=== PATIENT | female | born 1960 | race Caucasian/White ===

== ENCOUNTER 2017-01-08 17:12 | Inpatient (IN) | payer MEDICARE, OTHER ==
[~2017-01-08] VITALS: Ht 163.8 cm; Wt 51.0 kg
--- OUTSIDE RECORDS SUMMARY | 2017-01-08 17:22 | XMS REPORT | Continuity of Care Document ---
Author Author [facility] Address Unknown Phone Unavailable Care Team Providers Care Corn Breeder Name Role Phone David Camargo MD Primary Care Physician [phone] Insurance Providers Payer Name Policy Number Subscriber Name Relationship Medicare A And B [id number] Ana Draper 18 Self / Same As Patient Other1 [id number] Ana Draper 18 Self / Same As Patient Advance Directives Directive Response Recorded Date/Time Advanced Directives No 04/17/16 6:52pm Chief Complaint and Reason for Visit Chief Complaint Altered Neurologic Status Reason for Visit Seizure [id number] Problems Active Problems Medical Problem Onset Date Status Altered mental status 07/19/2014 Acute Closed fracture of neck of femur ~04/26/2014 Acute Fall on same level from slipping, tripping or stumbling ~04/26/2014 Acute Hip pain ~04/26/2014 Acute Hyponatremia 07/21/2014 Acute SIADH (syndrome of inappropriate ADH production) 07/21/2014 Acute Seizure ~03/30/2014 Acute Seizure ~04/17/2016 Acute Seizure disorder 11/04/2013 Chronic Status epilepticus 07/19/2014 Acute 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 Medications Current Home Medications Medication Dose Units Route Directions Days/Qty Instructions Start Date Oxcarbazepine 300 Mg 300 Mg ORAL Three Times A Day 02/06/13 Lamotrigine 100 Mg 100 Mg ORAL Daily @ 1800 Hrs 02/06/13 Topiramate 100 Mg 125 Mg ORAL Twice A Day 02/06/13 Demeclocycline Hcl 150 Mg 300 Mg ORAL Twice A Day 02/06/13 Lamotrigine 100 Mg 50 Mg ORAL Daily @ 0800 03/30/14 Magnesium Hydroxide 400 Mg/5 Ml 30 Ml ORAL Daily as needed for Constipation 03/30/14 Aspirin 81 Mg 81 Mg ORAL Daily 07/19/14 Sennosides 8.6 Mg 2 Tab ORAL Daily 07/19/14 Levetiracetam 500 Mg 1,500 Mg ORAL Twice A Day 60 07/21/14 Oxycodone Hcl 5 Mg 5 Mg ORAL Every 6 Hours as needed for Pain Lorazepam 2 Mg/1 Ml 2 Mg INTAMUSCULAR Three Times A Day as needed for Seizure Activity 04/10/15 Ibuprofen 200 Mg 400 Mg ORAL Daily 04/17/16 Past Home Medications Medication Directions Ordered Status Levetiracetam 500 Mg Tab, 1250 Mg Oral Twice A Day 02/06/13 Discontinued Lorazepam 2 Mg/1 Ml Disp.syrin, 2 Mg Intamuscular As Needed for Seizures Discontinued Metoclopramide Hcl 5 Mg Tablet, 5 Mg Oral Three Times Daily With Meals Discontinued Ibuprofen 200 Mg Tablet, 600 Mg Oral Every 8HRS as needed for Pain 03/30/14 Discontinued Oxycodone Hcl 5 Mg Tablet, 5 Mg Oral As Needed 07/19/14 Discontinued Risperidone 0.25 Mg Tablet, 0.25 Mg Oral Daily 04/10/15 Discontinued Social History Social History Problem Response Recorded Date/Time Onset Date Status Exposure to occupational hazards No 04/10/2015 7:39pm Query Response Start Date Stop Date Smoking Status Former smoker Hospital Discharge Instructions No hospital discharge instructions. Plan of Care Discharge Date 04/17/16 9:38pm Disposition 01 HOME OR SELF-CARE Condition at Discharge Stable Instructions/Education Provided Epilepsy (ED) Prescriptions See Medication Section Referrals David Camargo MD - Additional Instructions/Education Continue current medications. Follow up with Dr. Camargo. Some of your test results may not be complete prior to your leaving the Emergency Department. The Emergency Department is not authorized to give test results over the phone. Please contact the doctor's office listed in this packet of information for your final results. Follow up with your primary care physician or return to the Emergency Department for worsening or worrisome symptoms. * Emergency Department phone number: [phone], x [phone]* MEDICAL RECORD If you need copies of your X-rays, call [phone]. If you need copies of your medical record, including lab results, a signed authorization for release of records will be required. A telephone call for release of Health Information is not allowed. BILLING Billing can sometimes be confusing and frustrating. To help avoid confusion in the future, please take a moment to acquaint yourself with the billing parties for services. SERVICE BILLING [employer] Emergency Room Services [facility] Physician Services [facility] X-rays [facility] Patients will receive bills for services from the appropriate provider. If you have any questions about your [facility] bill, our staff will be happy to assist you. Please call [phone], and ask for the billing department. THANK YOU for choosing [facility] as your emergency care provider! Care Plan and Goals ~~Discharge Care Plan~~ Problem: Seizure caused from a fever. Seizure disorder. Goal: No further seizures. Instructions: Protect patients head if having an active seizure. Do not attempt to restrain patient. Unable to drive for six months from last date of seizure. Take medication(s) as directed. Follow up with primary care physician or neurologist as directed. Functional Status No functional status results. Allergies, Adverse Reactions, Alerts Allergen Type Severity Reaction Status Last Updated Codeine Allergy Unknown Active 04/17/16 Acetaminophen Allergy Unknown Active 04/17/16 Immunizations Name Given Type Status Date Influenza Vaccine Received if Current 08/19/15 Historical Historical Vital Signs Acute Vital Signs Vital Response Date/Time Temperature (Fahrenheit) 98.9 04/17/2016 8:54pm Pulse 73 bpm 04/17/2016 8:54pm Respirations 20 04/17/2016 8:54pm Height 5 ft 3 in Weight 118 lb Body Mass Index 20.0 kg/m^2 Results Laboratory Results Test Name Result Units Flags Reference Collection Date/Time Result Date/ Time Comments White Blood Count 11.54 10^3uL H 4.0-11.0 04/17/2016 6:pm 04/17/2016 7 :12pm Red Blood Count 5.08 10^6uL H 4.00-5.00 04/17/2016 6:04/17/2016 7: 12pm Hemoglobin 14.3 g/dL 12.0-15.5 04/17/2016 6:04/17/2016 7:12pm Hematocrit 43.20 % 35.00-45.00 04/17/2016 6:04/17/2016 7:12pm Mean Corpuscular Volume 85 FL 80-100 04/17/2016 6:04/17/2016 7: 12pm Mean Corpuscular Hemoglobin 28.1 PG 26.0-34.0 04/17/2016 6:2015 7:12pm Mean Corpuscular Hemoglobin Concent 33.1 g/dL 31.0-37.0 04/17/2016 6: 04/17/2016 7:12pm Red Cell Distribution Width 16.1 % H 11.8-15.6 04/17/2016 6:2015 7:12pm Platelet Count 319 10^3uL 150-450 04/17/2016 6:04/17/2016 7:12pm Mean Platelet Volume 10.4 FL H 6.0-9.5 04/17/2016 6:04/17/2016 7: 12pm Neutrophils (%) (Auto) 58 % 51-67 04/17/2016 6:04/17/2016 7:12pm Lymphocytes (%) (Auto) 29 % 20-46 04/17/2016 6:04/17/2016 7:12pm Monocytes (%) (Auto) 11 % 3-11 04/17/2016 6:04/17/2016 7:12pm Eosinophils (%) (Auto) 1 % 0-4 04/17/2016 6:04/17/2016 7:12pm Basophils (%) (Auto) 0 % 0-2 04/17/2016 6:04/17/2016 7:12pm Neutrophils # (Auto) 6.7 X10^3 04/17/2016 6:04/17/2016 7:12pm Lymphocytes # (Auto) 3.4 X10^3 04/17/2016 6:04/17/2016 7:12pm Monocytes # (Auto) 1.2 X10^3 04/17/2016 6:04/17/2016 7:12pm Eosinophils # (Auto) 0.1 10^3uL 04/17/2016 6:04/17/2016 7:12pm Basophils # (Auto) 0.1 10^3uL 04/17/2016 6:04/17/2016 7:12pm Prothrombin Time 11.0 SEC L 11.6-14.2 04/17/2016 6:3604/17/2016 7: 17pm Prothromb Time International Ratio 0.8 0.8-1.4 04/17/2016 6: 7:17pm Activated Partial Thromboplast Time 27.8 SEC 24.9-35.9 04/17/2016 6: 04/17/2016 7:17pm Sodium Level 127 mmol/L L 135-150 04/17/2016 7:04/17/2016 7:35pm Potassium Level 3.5 mmol/L # 3.5-5.1 04/17/2016 7:04/17/2016 7:35pm Chloride Level 96 mmol/L L 98-108 04/17/2016 7:04/17/2016 7:35pm Carbon Dioxide Level 11 mmol/L L 22-29 04/17/2016 7:04/17/2016 7: 35pm Anion Gap 23.2 MEQ/L H 3-04/17/2016 7:04/17/2016 7:35pm Blood Urea Nitrogen 12 mg/dL 7-04/17/2016 7:04/17/2016 7:35pm Creatinine 1.03 mg/dL 0.6-1.2 04/17/2016 7:04/17/2016 7:35pm BUN/Creatinine Ratio 12 10-20 04/17/2016 7:04/17/2016 7:35pm Estimat Glomerular Filtration Rate 67.1 04/17/2016 7:2015 7:35pm Estimated GFR (Non- 55.4 04/17/2016 7:2015 7:35pm Glucose Level 148 mg/dL # H 70-110 04/17/2016 7:04/17/2016 7:35pm Calculated Osmolality 248 mosm/L L 280-300 04/17/2016 7:04/17/2016 7:35pm Calcium Level 8.8 mg/dL 8.8-10.8 04/17/2016 7:04/17/2016 7:35pm Calcium/Ionized Calcium Ratio 3.9 mg/dL 3.8-4.6 04/17/2016 7:04/17 7:35pm Total Bilirubin 0.3 mg/dL 0.1-1.0 04/17/2016 7:04/17/2016 7:35pm Alkaline Phosphatase 123 U/L 38-126 04/17/2016 7:04/17/2016 7: 35pm Aspartate Amino Transf (AST/SGOT) 32 U/L 15-37 04/17/2016 7:2015 7:35pm Alanine Aminotransferase (ALT/SGPT) 27 U/L L 30-65 04/17/2016 7: 7:35pm Total Creatine Kinase 50 U/L 30-135 04/17/2016 7:04/17/2016 7: 35pm Troponin I < 0.012 ng/mL 0.010-0.080 04/17/2016 7:04/17/2016 7: 45pm Total Protein 7.0 g/dL 6.4-8.5 04/17/2016 7:04/17/2016 7:35pm Albumin 3.9 g/dL 3.4-5.0 04/17/2016 7:04/17/2016 7:35pm Albumin/Globulin Ratio 1.258 1.1-1.8 04/17/2016 7:04/17/2016 7: 35pm Procedures No known history of procedures. Encounters Encounter Location Arrival/Admit Date Discharge/Depart Date Attending Provider Departed Emergency Room [facility] 04/17/16 6:57pm 04/17/16 9:38pm ODETTE ROJAS DO Registered Clinic [facility] 04/17/16 6:42pm SONIYA CABA MD Recent Diagnosis
--- OUTSIDE RECORDS SUMMARY | 2017-01-08 17:22 | XMS REPORT | Referral Summary ---
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 stroke Discharge Diagnosis: Epilepsy Discharge Diagnosis: ACUTE, BUT ILL-DEFINED, CEREBROVASCULAR DISEASE Discharge Disposition: Home or Self Care Attending Physician: Aleks Sherwood MD Admitting Physician: Aleks Sherwood MD Vital Signs Most recent to 1 oldest [Reference Range]: Peripheral Pulse 87 bpm Rate [60-100 bpm] (02/15/15 11:22 AM) Blood Pressure 122/69 mmHg [90-140/60-90 mmHg] (02/15/15 11:22 AM) Problem List No data available for this section Allergies, Adverse Reactions, Alerts Substance Reaction Severity Status Tylenol with Codeine #2 Active Medications Keppra 500 mg oral tablet 3 tabs, Oral, BID, 0 Refill(s) Start Date: 02/15/15 Status: Ordered LaMICtal 100 mg oral tablet 0.5 tabs, Oral, Bedtime (once a day), 0 Refill(s) Start Date: 02/15/15 Status: Ordered RisperDAL 0.25 mg oral tablet 1 tabs, Oral, BID, # 60 tabs, 0 Refill(s) Start Date: 02/15/15 Status: Ordered Topamax 100 mg oral tablet tabs, Oral, BID, 125 mg BID, 0 Refill(s) Special Instructions: 125 mg BID Start Date: 02/15/15 Status: Ordered Topamax 25 mg oral tablet tabs, Oral, BID, 125mg BID, 0 Refill(s) Special Instructions: 125mg BID Start Date: 02/15/15 Status: Ordered Trileptal 300 mg oral tablet 1 tabs, Oral, TID, 0 Refill(s) Start Date: 02/15/15 Status: Ordered Results No data available for this section Immunizations Vaccine Date Refusal Reason tetanus-diphth toxoids (Td) adult/adol 09/11/03 Procedures No data available for this section Social History Social History Type Response Smoking Status Never smoker Assessment and Plan No data available for this section
--- OUTSIDE RECORDS SUMMARY | 2017-01-08 17:22 | XMS REPORT | Continuity of Care Document ---
Author Author [facility] Organization [facility] Address Unknown Phone Unavailable Care Team Providers Care Application Security Consultant Name Role Phone David Camargo MD Primary Care Physician [phone] Insurance Providers Payer Name Policy Number Subscriber Name Relationship Medicare A And B [id number] Ana Draper 18 Self / Same As Patient Medicare Other [id number] Ana Draper 18 Self / Same As Patient Problems Medical Problems Problem Onset Date Status Seizure disorder 11/04/2013 Active Seizure ~03/30/2014 Active Fall on same level from slipping, tripping or stumbling ~04/26/2014 Active Hip pain ~04/26/2014 Active Closed fracture of neck of femur ~04/26/2014 Active Status epilepticus 07/19/2014 Active Altered mental status 07/19/2014 Active Hyponatremia 07/21/2014 Active SIADH (syndrome of inappropriate ADH production) 07/21/2014 Active Medications Medication Dose Route Sig Days/Qty Instructions Order Date Discontinued Date Status Levetiracetam 1,250 Mg ORAL TWICE A DAY 02/06/13 07/21/14 Discontinued Oxcarbazepine 300 Mg ORAL THREE TIMES A DAY 02/06/13 Active Lamotrigine 100 Mg ORAL Daily @ 1800 hrs 02/06/13 Active Topiramate 125 Mg ORAL TWICE A DAY 02/06/13 Active Demeclocycline HCl 300 Mg ORAL TWICE A DAY 02/06/13 Active Lamotrigine 50 Mg ORAL Daily @ 0800 03/30/14 Active Lorazepam 2 Mg INTAMUSCULAR NEEDED For Seizures 03/30/14 Discontinued Metoclopramide Hcl 5 Mg ORAL THREE TIMES DAILY WITH MEALS 03/30/14 07/19/14 Discontinued Ibuprofen 600 Mg ORAL EVERY 8HRS PRN PAIN 03/30/14 Active Magnesium Hydroxide 30 Ml ORAL DAILY PRN CONSTIPATION 03/30/14 Active Aspirin 81 Mg ORAL DAILY 07/19/14 Active Sennosides 2 Tab ORAL DAILY 07/19/14 Active Oxycodone Hcl 5 Mg ORAL NEEDED 07/19/14 04/10/15 Discontinued Levetiracetam 1,500 Mg ORAL TWICE A DAY 60 Qty 07/21/14 Active Risperidone 0.25 Mg ORAL DAILY 04/10/15 Active Oxycodone Hcl 5 Mg ORAL EVERY 6 HOURS PRN PAIN 04/10/15 Active Lorazepam 2 Mg INTAMUSCULAR THREE TIMES A DAY PRN SEIZURE ACTIVITY Active Social History No social history. Hospital Discharge Instructions No hospital discharge instructions. Plan of Care Discharge Date 04/10/15 7:16pm Disposition 09 ADMITTED INPATIENT Condition at Discharge Stable Prescriptions See Medications Section Follow-up Orders BASIC METABOLIC PANEL* Referrals David Camargo MD Functional Status No functional status results. Allergies, Adverse Reactions, Alerts Allergen Type Severity Reaction Status Last Updated Codeine Allergy Unknown Active 03/31/14 Acetaminophen Allergy Unknown Active 03/31/14 Immunizations No immunization records. Vital Signs Acute Vital Signs Vital Response Date/Time Temperature (Fahrenheit) 97.4 Pulse 80 bpm Height 5 ft 3 in Weight 105 lb Body Mass Index 18.0 kg/m^2 Results Test Source Date Result Interp. Ref. Range Comments Activated Partial Thromboplast Time March 30, 2014 7:49pm 30.3 SEC N 25.0- 39.0 Collected by nurse? N Alanine Aminotransferase (ALT/SGPT) April 10, 2015 4:42pm 26 U/L L 30-65 FIRST SAMPLE HEMOLYSED Albumin April 10, 2015 4:42pm 3.8 g/dL DN 3.4-5.0 FIRST SAMPLE HEMOLYSED Albumin/Globulin Ratio April 10, 2015 4:42pm 1.266 N 1.1-1.8 FIRST SAMPLE HEMOLYSED Alkaline Phosphatase April 10, 2015 4:42pm 169 U/L H 38-126 FIRST SAMPLE HEMOLYSED Amilcar Test March 30, 2014 8:10pm Na Collected by nurse? N Ammonia March 30, 2014 7:49pm 33 umol/L 9-35 Collected by nurse? N Anion Gap April 10, 2015 4:42pm 15.7 MEQ/L H 3-15 FIRST SAMPLE HEMOLYSED Arterial Blood Base Excess March 30, 2014 8:10pm -12.0 L -2.0-3.0 Collected by nurse? N Arterial Blood HCO3 March 30, 2014 8:10pm 15.1 MEQ/L L 22.0-26.0 Collected by nurse? N Arterial Blood Oxygen Saturation March 30, 2014 8:10pm 98 % N 95-98 Collected by nurse? N Arterial Blood Partial Pressure CO2 March 30, 2014 8:10pm 36 mmHg N 35-45 Collected by nurse? N Arterial Blood Partial Pressure O2 March 30, 2014 8:10pm 114 mmHg H 80- 105 Collected by nurse? N Arterial Blood Total CO2 March 30, 2014 8:10pm 16.0 CRUZ/L L 23.0-27.0 Collected by nurse? N Arterial Blood pH March 30, 2014 8:10pm 7.23 L 7.35-7.45 All ABG Results called to Jaswinder read back the results. Called by Efra Salguero at 2017 Aspartate Amino Transf (AST/SGOT) April 10, 2015 4:42pm 26 U/L N 15-37 FIRST SAMPLE HEMOLYSED B-Type Natriuretic Peptide March 30, 2014 7:49pm 25 PG/ML N 0-100 Collected by nurse? N BUN/Creatinine Ratio April 10, 2015 4:42pm 10 N 10-20 FIRST SAMPLE HEMOLYSED Band Neutrophils % February 06, 2013 10:40pm 0 % N 0-6 Basophils # (Auto) April 10, 2015 3:50pm 0.0 10^3uL Basophils % February 06, 2013 10:40pm 0 % N 0-1 Basophils (%) (Auto) April 10, 2015 3:50pm 0 % N 0-2 Blood Gas Liter Flow March 30, 2014 8:10pm 3.0 LPM Collected by nurse ? N Blood Gas Puncture Site March 30, 2014 8:10pm Left brachial Collected by nurse? N Blood Morphology Comment February 06, 2013 10:40pm Normal NORMAL Blood Urea Nitrogen April 10, 2015 4:42pm 11 mg/dL N 7-18 FIRST SAMPLE HEMOLYSED C-Reactive Protein March 30, 2014 7:49pm < 0.50 MG/DL 0.0-0.9 Collected by nurse? N Calcium Level April 10, 2015 4:42pm 8.9 mg/dL N 8.8-10.8 FIRST SAMPLE HEMOLYSED Calcium/Ionized Calcium Ratio April 10, 2015 4:42pm 4.0 mg/dL N 3.8-4.6 FIRST SAMPLE HEMOLYSED Calculated Osmolality April 10, 2015 4:42pm 250 mosm/L L 280-300 FIRST SAMPLE HEMOLYSED Carbon Dioxide Level April 10, 2015 4:42pm 24 mmol/L N 22-29 FIRST SAMPLE HEMOLYSED Chloride Level April 10, 2015 4:42pm 95 mmol/L L 98-108 FIRST SAMPLE HEMOLYSED Creatine Kinase MB March 30, 2014 7:49pm 0.4 NG/ML N 0.0-6.0 Collected by nurse? N Creatinine April 10, 2015 4:42pm 1.05 mg/dL N 0.6-1.2 FIRST SAMPLE HEMOLYSED Differential Total Cells Counted February 06, 2013 10:40pm 100 Eosinophils # (Auto) April 10, 2015 3:50pm 0.0 10^3uL Eosinophils % February 06, 2013 10:40pm 1 % N 0-5 Eosinophils (%) (Auto) April 10, 2015 3:50pm 0 % N 0-4 Estimat Glomerular Filtration Rate April 10, 2015 4:42pm 65.8 FIRST SAMPLE HEMOLYSED Estimated GFR (Non- April 10, 2015 4:42pm 54.4 FIRST SAMPLE HEMOLYSED Glucose Level April 10, 2015 4:42pm 108 mg/dL DN 70-110 FIRST SAMPLE HEMOLYSED Hematocrit April 10, 2015 3:50pm 41.10 % N 35.00-45.00 Hemoglobin April 10, 2015 3:50pm 13.9 g/dL N 12.0-15.5 Lamotrigine (Lamictal) Level July 19, 2014 2:27am 3.3 mcg/mL () Reference Range:2.5 - 15.0 Test Performed by: [address] [address] Collar Folder Operator: Fede [place] III, M.D. Levetiracetam (Keppra) Level July 19, 2014 2:27am 41.4 mcg/mL () Reference Range:12.0 - 46.0 Test Performed by: [address] [address] Collar Folder Operator: Fede [place] III, M.D. Lymphocytes # (Auto) April 10, 2015 3:50pm 1.0 X10^3 Lymphocytes % February 06, 2013 10:40pm 38 % H 16-34 Lymphocytes (%) (Auto) April 10, 2015 3:50pm 16 % L 20-46 Magnesium Level July 20, 2014 5:15am 2.2 MG/DL N 1.6-2.3 Collected by nurse? N Mean Corpuscular Hemoglobin April 10, 2015 3:50pm 31.2 PG N 26.0-34.0 Mean Corpuscular Hemoglobin Concent April 10, 2015 3:50pm 33.8 g/dL N 31.0-37.0 Mean Corpuscular Volume April 10, 2015 3:50pm 92 FL N 80-100 Mean Platelet Volume April 10, 2015 3:50pm 10.1 FL H 6.0-9.5 Monocytes # (Auto) April 10, 2015 3:50pm 0.4 X10^3 Monocytes % February 06, 2013 10:40pm 9 % N 0-10 Monocytes (%) (Auto) April 10, 2015 3:50pm 7 % N 3-11 Neutrophils # (Auto) April 10, 2015 3:50pm 4.6 X10^3 Neutrophils (%) (Auto) April 10, 2015 3:50pm 76 % H 51-67 Oxcarbazepine Level July 19, 2014 2:27am 19 mcg/mL 3 - 35 Test Performed by:[address] [address] Collar Folder Operator: Fede [place] III, M.D. Phosphorus Level July 20, 2014 5:15am 4.7 MG/DL N 2.4-4.9 Collected by nurse? N Platelet Count April 10, 2015 3:50pm 232 10^3uL N 150-450 Potassium Level April 10, 2015 4:42pm 5.0 mmol/L DN 3.5-5.1 FIRST SAMPLE HEMOLYSED Prothromb Time International Ratio March 30, 2014 7:49pm 1.0 N 0.8-1.4 Collected by nurse? N Prothrombin Time March 30, 2014 7:49pm 12.8 SEC N 12.3-14.4 Collected by nurse? N Red Blood Count April 10, 2015 3:50pm 4.46 10^6uL N 4.00-5.00 Red Cell Distribution Width April 10, 2015 3:50pm 12.5 % N 11.8-15.6 Segmented Neutrophils % February 06, 2013 10:40pm 52 % N 50-73 Serum Alcohol March 30, 2014 7:49pm < 10.0 mg/dL L 10-80 Collected by nurse? N Sodium Level April 10, 2015 4:42pm 129 mmol/L L 135-150 FIRST SAMPLE HEMOLYSED Thyroid Stimulating Hormone (TSH) March 30, 2014 7:49pm 4.49 UIU/ML DN 0.46-4.68 Collected by nurse? N Total Bilirubin April 10, 2015 4:42pm 0.3 mg/dL N 0.1-1.0 FIRST SAMPLE HEMOLYSED Total Creatine Kinase April 10, 2015 4:42pm 47 U/L N 30-135 FIRST SAMPLE HEMOLYSED Total Protein April 10, 2015 4:42pm 6.8 g/dL N 6.4-8.5 FIRST SAMPLE HEMOLYSED Troponin I March 30, 2014 7:49pm < 0.012 ng/mL 0.010-0.080 Collected by nurse? N Ur Tricyclic Antidepressants Screen March 30, 2014 8:45pm Negative Negative Collected by nurse? NUrine collection method Clean Catch Urine Amphetamines Screen March 30, 2014 8:45pm Negative Negative Collected by nurse? NUrine collection method Clean Catch Urine Barbiturates Screen March 30, 2014 8:45pm Positive H Negative Collected by nurse? NUrine collection method Clean Catch Urine Benzodiazepines Screen March 30, 2014 8:45pm Negative Negative Collected by nurse? NUrine collection method Clean Catch Urine Bilirubin July 19, 2014 2:18am Negative Negative Urine collection method Catheter Urine Blood July 19, 2014 2:18am Negative Negative Urine collection method Catheter Urine Cannabinoids Screen March 30, 2014 8:45pm Negative Negative Collected by nurse? NUrine collection method Clean Catch Urine Clarity July 19, 2014 2:18am Slightly cloudy Urine collection method Catheter Urine Cocaine Screen March 30, 2014 8:45pm Negative Negative Collected by nurse? NUrine collection method Clean Catch Urine Collection Type July 19, 2014 2:18am Catheter Urine collection method Catheter Urine Color July 19, 2014 2:18am Yellow Urine collection method Catheter Urine Glucose (UA) July 19, 2014 2:18am Negative Negative Urine collection method Catheter Urine Ketones July 19, 2014 2:18am Negative Negative Urine collection method Catheter Urine Leukocyte Esterase July 19, 2014 2:18am Negative Negative Urine collection method Catheter Urine Methadone Screen March 30, 2014 8:45pm Negative Negative Collected by nurse? NUrine collection method Clean Catch Urine Methamphetamines Screen March 30, 2014 8:45pm Negative NEGATIVE Collected by nurse? NUrine collection method Clean Catch Urine Nitrite July 19, 2014 2:18am Negative Negative Urine collection method Catheter Urine Opiates Screen March 30, 2014 8:45pm Negative Negative Collected by nurse? NUrine collection method Clean Catch Urine Oxycodone Screen March 30, 2014 8:45pm Negative NEGATIVE Collected by nurse? NUrine collection method Clean Catch Urine Phencyclidine Screen March 30, 2014 8:45pm Negative Negative Phencyclidine testing by this method can showcross-reactivity with several common medications such as venlafaxine, dextromethorphan, and diphenhydramine. Submission of any positive sample for confirmatory testing is recommended. Urine Propoxyphene Screen March 30, 2014 8:45pm Negative NEGATIVE Results of this screen are qualitative and are presumptiveresults. A more specific method (i.e. GC/MS) must be used if confirmation of results is indicated. Urine Protein July 19, 2014 2:18am Negative Negative Urine collection method Catheter Urine Specific [place] July 19, 2014 2:18am 1.015 1.005-1.030 Urine collection method Catheter Urine Urobilinogen July 19, 2014 2:18am 0.2 mg/dL 0.2-1.0 Urine collection method Catheter Urine pH July 19, 2014 2:18am 6.5 5.0 - 8.0 Urine collection method Catheter White Blood Count April 10, 2015 3:50pm 6.04 10^3uL N 4.0-11.0 Blood Culture Peripheral-:Lab Indicates After Collectio July 19, 2014 3: 04am No Growth in 5 days Procedures No known history of procedures. Encounters Encounter Location Date/Time Departed Emergency Room [facility] 04/10/15 4:02pm Registered Clinic [facility] 04/10/15 2:00pm
--- OUTSIDE RECORDS SUMMARY | 2017-01-08 17:22 | XMS REPORT | Continuity of Care Document ---
Author Author [facility] Address Unknown Phone Unavailable Allergies Active Description Code Type Severity Reaction Onset Reported/Identified Relationship to Patient Clinical Status Yes acetaminophen [id number] Drug Allergy Unknown N/A 09/09/2016 Yes codeine [id number] Drug Allergy Unknown N/A 09/09/2016 Medications Problems Date Dx Coded Attending Type Code Diagnosis Diagnosed By 02/07/2013 Ot 305.1 TOBACCO USE DISORDER 02/07/2013 Ot 345.90 EPILEPSY UNSPEC W/O MENTION INTRACTABLE 02/07/2013 Ot V58.69 OTH MED,LT,CURRENT USE 11/04/2013 TOBY VELAZCO, SAMREEN Johnson Ot 345.80 OTHER FORMS OF EPILEPSY/RECURRENT SEIZUR 04/01/2014 ZENA LEE MD Ot 253.6 NEUROHYPOPHYSIS DIS NEC 04/01/2014 ZENA LEE MD Ot 305.1 TOBACCO USE DISORDER 04/01/2014 ZENA LEE MD Ot 345.90 EPILEPSY UNSPEC W/O MENTION INTRACTABLE 04/01/2014 ZENA LEE MD Ot 564.09 OTHER CONSTIPATION 04/01/2014 ZENA LEE MD Ot 783.22 UNDERWEIGHT 04/01/2014 ZENA LEE MD Ot V12.54 PERSONAL HX OF TIA, CEREBRAL INFARCTION 04/26/2014 ODETTE ROJAS DO Ot 719.45 JOINT PAIN-PELVIS 04/26/2014 ODETTE ROJAS DO Ot 820.21 INTERTROCHANTERIC FX-CL 04/26/2014 ODETTE ROJAS DO Ot E849.0 ACCIDENT IN HOME 04/26/2014 ODETTE ROJAS DO Ot E885.9 FALL FROM SLIPPING, TRIPPING, OR STUMBLI 07/21/2014 MOLLY WELDON MD Ot 253.6 NEUROHYPOPHYSIS DIS NEC 07/21/2014 MOLLY WELDON MD Ot 338.29 OTHER CHRONIC PAIN 07/21/2014 MOLLY WELDON MD Ot 345.90 EPILEPSY UNSPEC W/O MENTION INTRACTABLE 07/21/2014 SHIRAZ VELAZCO, MOLLY Ang Ot 564.00 UNSPEC CONSTIPATION 07/21/2014 SHIRAZ VELAZCO, MOLLY Ashia Ot V12.54 PERSONAL HX OF TIA, CEREBRAL INFARCTION 07/21/2014 SHIRAZ VELAZCO, MOLLY Ang Ot V58.66 LONG-TERM (CURRENT) USE OF ASPIRIN 09/21/2014 David Camargo MD Ot 821.00 09/21/2014 Ot 276.1 09/21/2014 Ot 276.1 09/21/2014 Ot 276.1 09/21/2014 Ot 276.1 09/21/2014 Ot 611.72 09/21/2014 Ot 345.90 09/21/2014 Ot 793.80 09/21/2014 Ot 793.82 09/21/2014 Ot 780.52 09/21/2014 David Camargo MD Ot 276.1 09/21/2014 David Camargo MD Ot 611.71 09/21/2014 David Camargo MD Ot 611.72 09/21/2014 David Camargo MD Ot 793.89 09/21/2014 David Camargo MD Ot 782.3 09/21/2014 LYNSEY TREADWELL DO Ot 780.39 09/21/2014 ODETTE ROJAS DO Ot 719.45 09/21/2014 ODETTE ROJAS DO Ot E849.7 09/21/2014 ODETTE ROJAS DO Ot E885.9 09/21/2014 David Camargo MD Ot 821.00 09/21/2014 PABLO MALDONADO MD Ot 780.39 09/21/2014 David Camargo MD Ot 401.9 02/18/2015 Ot 276.1 02/18/2015 Ot 276.1 02/18/2015 Ot 276.1 02/18/2015 Ot 276.1 02/18/2015 Ot 611.72 02/18/2015 Ot 345.90 02/18/2015 Ot 793.80 02/18/2015 Ot 793.82 02/18/2015 Ot 780.52 02/18/2015 David Camargo MD Ot 276.1 02/18/2015 David Camargo MD Ot 611.71 02/18/2015 Raman VELAZCO, David Johnson Ot 611.72 02/18/2015 Raman VELAZCO, David Johnson Ot 793.89 02/18/2015 Raman VELAZCO, David Johnson Ot 782.3 02/18/2015 LYNSEY TREADWELL DO Ot 780.39 02/18/2015 ODETTE ROJAS DO Ot 719.45 02/18/2015 ODETTE ROJAS DO Ot E849.7 02/18/2015 ODETTE ROJAS DO Ot E885.9 02/18/2015 Raman VELAZCO, David Johnson Ot 821.00 02/18/2015 JOEL VELAZCO, PABLO L Ot 780.39 02/18/2015 Raman VELAZCO, David Johnson Ot 401.9 04/11/2015 SHIRAZ VELAZCO, MOLLY Ang Ot 253.6 NEUROHYPOPHYSIS DIS NEC 04/11/2015 SHIRAZ VELAZCO, MOLLY Ang Ot 305.1 TOBACCO USE DISORDER 04/11/2015 SHIRAZ VELAZCO, MOLLY Ang Ot 344.89 PARALYTIC SYNDROMES NEC 04/11/2015 SHIRAZ VELAZCO, MOLLY Ang Ot 345.90 EPILEPSY UNSPEC W/O MENTION INTRACTABLE 04/11/2015 SHIRAZ VELAZCO, MOLLY Ang Ot V12.54 PERSONAL HX OF TIA, CEREBRAL INFARCTION 04/26/2015 Raman VELAZCO, David Johnson Ot 821.00 04/27/2015 Ot 276.1 04/27/2015 Ot 276.1 04/27/2015 Ot 276.1 04/27/2015 Ot 276.1 04/27/2015 Ot 611.72 04/27/2015 Ot 345.90 04/27/2015 Ot 793.80 04/27/2015 Ot 793.82 04/27/2015 Ot 780.52 04/27/2015 Raman VELAZCO, David Johnson Ot 276.1 04/27/2015 Raman VELAZCO, David Johnson Ot 611.71 04/27/2015 Raman VELAZCO, David Johnson Ot 611.72 04/27/2015 Raman VELAZCO, David Johnson Ot 793.89 04/27/2015 Raman VELAZCO, David Johnson Ot 782.3 04/27/2015 LYNSEY TREADWELL DO Ot 780.39 04/27/2015 ODETTE ROJAS DO Ot 719.45 04/27/2015 CRYSTAL SCHMIDT ODETTE M Ot E849.7 04/27/2015 CRYSTAL SCHMIDT ODETTE Tatiana Ot E885.9 04/27/2015 Raman VELAZCO, David Johnson Ot 821.00 04/27/2015 JOEL VELAZCO, PABLO Smart Ot 780.39 04/27/2015 Raman VELAZCO, David Johnson Ot 401.9 04/27/2015 LINDA VELAZCO, AAMR A Ot V64.3 04/27/2015 ROSALES VELAZCO, SONIYA Ot 780.39 04/29/2015 ROSALES VELAZCO, SONIYA Ot 780.39 05/01/2015 ROSALES VELAZCO, SONIYA Ot 780.39 05/12/2015 Raman VELAZCO, David Johnson Ot V76.12 05/13/2015 Raman VELAZCO, David Johnson Ot V76.12 05/27/2015 ROSALES VELAZCO, SONIYA Ot 780.39 05/31/2015 Raman VELAZCO, David Johnson Ot V76.12 06/01/2015 Raman VELAZCO, David Johnson Ot 793.82 06/18/2015 Raman VELAZCO, David Johnson Ot 793.82 07/14/2015 Raman VELAZCO, David Johnson Ot 610.0 07/14/2015 Raman VELAZCO, David Johnson Ot 611.89 08/25/2015 Raman VELAZCO, David Johnson Ot 345.90 08/25/2015 Raman VELAZCO, David Johnson Ot 782.3 08/25/2015 Raman VELAZCO, David Johnson Ot 783.21 08/25/2015 Raman VELAZCO, David Johnson Ot 784.0 08/25/2015 Raman VELAZCO, David Johnson Ot V58.69 01/24/2016 Raman VELAZCO, David Johnson Ot 345.90 01/24/2016 Raman VELAZCO, David Johnson Ot 782.3 01/24/2016 Raman VELAZCO, David Johnson Ot 783.21 01/24/2016 Raman VELAZCO, David Johnson Ot 784.0 01/24/2016 Raman VELAZCO, David Johnson Ot V58.69 04/17/2016 Ot 276.1 HYPOSMOLALITY 04/17/2016 Ot 276.1 HYPOSMOLALITY 04/17/2016 Ot 276.1 HYPOSMOLALITY 04/17/2016 Ot 276.1 HYPOSMOLALITY 04/17/2016 Ot 611.72 LUMP OR MASS IN BREAST 04/17/2016 Ot 345.90 EPILEPSY UNSPEC W/O MENTION INTRACTABLE 04/17/2016 Ot 793.80 UNSPEC ABNORMAL MAMMOGRAM 04/17/2016 Ot 793.82 INCONCLUSIVE MAMMOGRAM 04/17/2016 Ot 780.52 INSOMNIA, UNSPECIFIED 04/17/2016 David Camargo MD Ot 276.1 HYPOSMOLALITY 04/17/2016 David Camargo MD Ot 611.71 MASTODYNIA 04/17/2016 David Camargo MD Ot 611.72 LUMP OR MASS IN BREAST 04/17/2016 David Camargo MD Ot 793.89 OTH (ABN) FINDINGS ON RADIOLOGICAL EXAMI 04/17/2016 David Camargo MD Ot 782.3 EDEMA 04/17/2016 LYNSEY TREADWELL DO Ot 780.39 OTHER CONVULSIONS 04/17/2016 ODETTE ROJAS DO Ot 719.45 JOINT PAIN-PELVIS 04/17/2016 ODETTE ROJAS DO Ot E849.7 ACCID IN RESIDENT INSTIT 04/17/2016 ODETTE ROJAS DO Ot E885.9 FALL FROM SLIPPING, TRIPPING, OR STUMBLI 04/17/2016 David Camargo MD Ot 821.00 FX FEMUR NOS-CLOSED 04/17/2016 PABLO MALDONADO MD Ot 780.39 OTHER CONVULSIONS 04/17/2016 David Camargo MD Ot 401.9 HYPERTENSION NOS 04/17/2016 LINDA VELAZCO, MR A Ot V64.3 NO PROC FOR REASONS NEC 04/17/2016 SONIYA CABA MD Ot 780.39 OTHER CONVULSIONS 04/17/2016 David Camargo MD Ot V76.12 OTH SCREEN MAMMO-MALIGN NEOPLASM OF SURAJ 04/17/2016 David Camargo MD Ot 793.82 INCONCLUSIVE MAMMOGRAM 04/17/2016 David Camargo MD Ot 610.0 SOLITARY CYST OF BREAST 04/17/2016 David Camargo MD Ot 611.89 OTHER SPECIFIED DISORDERS OF BREAST 04/17/2016 David Camargo MD Ot 345.90 EPILEPSY UNSPEC W/O MENTION INTRACTABLE 04/17/2016 David Camargo MD Ot 782.3 EDEMA 04/17/2016 David Camargo MD Ot 783.21 LOSS OF WEIGHT 04/17/2016 David Camargo MD Ot 784.0 HEADACHE 04/17/2016 David Camargo MD Ot V58.69 OTH MED,LT,CURRENT USE 04/17/2016 ODETTE ROJAS DO, Ot 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) 04/17/2016 ODETTE ROJAS DO Ot R29.818 OTHER SYMPTOMS AND SIGNS INVOLVING THE N 04/19/2016 SONIYA CABA MD, Ot R41.82 ALTERED MENTAL STATUS, UNSPECIFIED 04/19/2016 SONIYA CABA MD, Ot R56.9 UNSPECIFIED CONVULSIONS 04/21/2016 ODETTE ROJAS DO, Ot 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) 04/21/2016 ODETTE ROJAS DO Ot R29.818 OTHER SYMPTOMS AND SIGNS INVOLVING THE N 05/16/2016 SONIYA CABA MD, Ot R41.82 ALTERED MENTAL STATUS, UNSPECIFIED 05/16/2016 SONIYA CABA MD, Ot R56.9 UNSPECIFIED CONVULSIONS 09/10/2016 LAURIE COFFMAN MD Ot E87.1 HYPO-OSMOLALITY AND HYPONATREMIA 09/10/2016 LAURIE COFFMAN MD Ot E87.2 ACIDOSIS 09/10/2016 LAURIE COFFMAN MD Ot E87.6 HYPOKALEMIA 09/10/2016 LAURIE COFFMAN MD Ot F17.210 NICOTINE DEPENDENCE, CIGARETTES, UNCOMPL 09/10/2016 LAURIE COFFMAN MD Ot G40.909 EPILEPSY, UNSP, NOT INTRACTABLE, WITHOUT 09/10/2016 LAURIE COFFMAN MD Ot 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) 09/10/2016 LAURIE COFFMAN MD Ot I69.298 OTHER SEQUELAE OF OTHER NONTRAUMATIC INT 09/13/2016 SONIYA CABA MD, Ot G40.89 OTHER SEIZURES 10/04/2016 SONIYA CABA MD, Ot G40.89 OTHER SEIZURES Procedures Results Test Result Range Complete blood count (CBC) with automated white blood cell (WBC) differential - 09/09/16 17:13 Blood automated leukocyte count 9.71 4.0 -11.0 Erythrocytes 4.59 4.00-5.00 12.0-16.0;g/dL 13.0 12.0-15.5 Hematocrit 39.30 35.00-45.00 Automated erythrocyte mean corpuscular volume 86 80-100 Mean corpuscular hemoglobin (MCH) determination 28.3 26.0-34.0 Automated erythrocyte mean corpuscular hemoglobin concentration measurement ( mass/volume) 33.1 31.0-37.0 Erythrocyte distribution width 15.1 11.8 -15.6 Automated blood platelet count 276 150- 450 Automated blood platelet mean volume measurement 9.8 6.0-9.5 Automated neutrophil percentage 63 51- 67 Lymphocytes/100 leukocytes 25 20-46 Automated monocyte percentage 10 3-11 Eosinophil count auto 1 0-4 Automated basophil percentage 0 0-2 Automated blood neutrophil count 6.1 Blood lymphocytes count (number/volume) 2.4 Automated blood monocyte count 1.0 Blood absolute eosinophil count 0.1 Basophils 0.0 Comprehensive metabolic panel - 09/09/16 17:13 Sodium measurement 122 70-110 Carbon dioxide measurement 12 22-29 Serum or plasma anion gap 26.5 3-15 BLOOD UREA NITROGEN 13 7-18 CREATININE SERUM 0.92 0.6-1.2 Brucella species antibody panel (IgG, IgM) 14 10-20 Estimated glomerular filtration rate (GFR) 76.4 Estimated glomerular filtration rate (GFR) non- 63.2 OSMOLALITY,CALCULATED 251 280-300 CALCIUM 8.6 8.8-10.8 Calculated ionized calcium measurement 3.5 3.8-4.6 BILIRUBIN,TOTAL 0.4 0.1-1.0 Serum or plasma alkaline phosphatase measurement 126 38-126 ASPARTATE AMINO TRANSFERASE 27 15-37 ALANINE AMINOTRANSFERASE 28 30-65 Serum or plasma total protein measurement 8.1 6.4-8.5 Serum or plasma albumin measurement 4.4 3.4-5.0 Serum or plasma albumin/globulin mass ratio 1.189 1.1-1.8 LACTIC ACID - 09/09/16 21:17 LACTIC ACID 0.9 0.7-2.1 Complete blood count (CBC) with automated white blood cell (WBC) differential - 09/10/16 05:50 Blood automated leukocyte count 6.21 4.0 -11.0 Erythrocytes 4.58 4.00-5.00 12.0-16.0;g/dL 12.6 12.0-15.5 Hematocrit 38.30 35.00-45.00 Automated erythrocyte mean corpuscular volume 84 80-100 Mean corpuscular hemoglobin (MCH) determination 27.5 26.0-34.0 Automated erythrocyte mean corpuscular hemoglobin concentration measurement ( mass/volume) 32.9 31.0-37.0 Erythrocyte distribution width 15.0 11.8 -15.6 Automated blood platelet count 258 150- 450 Automated blood platelet mean volume measurement 9.5 6.0-9.5 Automated neutrophil percentage 61 51- 67 Lymphocytes/100 leukocytes 26 20-46 Automated monocyte percentage 12 3-11 Eosinophil count auto 1 0-4 Automated basophil percentage 0 0-2 Automated blood neutrophil count 3.8 Blood lymphocytes count (number/volume) 1.6 Automated blood monocyte count 0.8 Blood absolute eosinophil count 0.1 Basophils 0.0 Comprehensive metabolic panel - 09/10/16 05:50 Sodium measurement 87 70-110 Carbon dioxide measurement 21 22-29 Serum or plasma anion gap 13.1 3-15 BLOOD UREA NITROGEN 9 7-18 CREATININE SERUM 0.87 0.6-1.2 Brucella species antibody panel (IgG, IgM) 10 10-20 Estimated glomerular filtration rate (GFR) 81.5 Estimated glomerular filtration rate (GFR) non- 67.4 OSMOLALITY,CALCULATED 264 280-300 CALCIUM 8.7 8.8-10.8 Calculated ionized calcium measurement 3.8 3.8-4.6 BILIRUBIN,TOTAL 0.4 0.1-1.0 Serum or plasma alkaline phosphatase measurement 110 38-126 ASPARTATE AMINO TRANSFERASE 25 15-37 ALANINE AMINOTRANSFERASE 34 30-65 Serum or plasma total protein measurement 7.2 6.4-8.5 Serum or plasma albumin measurement 3.5 3.4-5.0 Serum or plasma albumin/globulin mass ratio 0.945 1.1-1.8 Phosphorus measurement - 09/10/16 05:50 Phosphorus measurement 4.0 2.4-4.9 Magnesium measurement - 09/10/16 05:50 Magnesium measurement 2.2 1.6-2.3 Serum or plasma cortisol measurement on morning peak specimen (mass/volume) - 09/10/16 05:50 Serum or plasma cortisol measurement on morning peak specimen (mass/volume) 9 3-20 UA CULTURE IF INDICATED* - 01/05/17 13:15 COLLECTION METHOD CLEAN CATCH Color of urine by auto Yellow Urine appearance determination Slightly Cloudy Urine pH measurement by automated test strip 7.0 5.0 - 8.0 Specific gravity of urine by automated test strip 1.015 1.005-1.030 Urine protein measurement by test strip (mass/volume) Negative Negative Urine glucose detection by automated test strip Negative Negative Urine erythrocytes count by automated test strip (number/volume) Trace-lysed Negative Urine ketones detection by automated test strip Negative Negative Urine nitrite detection by test strip Negative Negative Urine total bilirubin detection by automated test strip Negative Negative Urine urobilinogen measurement by automated test strip (mass/volume) 0.2 0.2-1.0 Urine leukocyte esterase detection by dipstick 2+ Negative Microscopic examination of urine - 01/05/17 13:15 Urine volume measurement < Urine erythrocytes detection by automated method 2-5 Automated urine sediment leukocyte count by microscopy (number/high power field ) Bacteria Rare SQUAMOUS EPITHELIAL CELL,UR 0-2 Urine culture - 01/05/17 13:15 Urine culture FRY FOR RESULTS: * - NEW RESULT - RESULT WAS MODIFIED AFTER FINAL STATUS SET Encounters ACCT No. Visit Date/Time Discharge Status Pt. Type Provider Facility Loc./Unit Complaint [id number] 09/09/2016 19:45:00 2015 11:37:00 DIS Inpatient AUGUSTUS VELAZCO, [facility] MED/SURG POST DICTAL PARALYSIS [id number] 04/17/2016 18:57:00 2015 21:38:00 DIS Emergency ROJAS DO [facility] ED [id number] 08/03/2015 14:30:00 2014 23:59:59 CLS Outpatient Raman VELAZCO, [facility] LAB [id number] 05/28/2015 08:58:00 2014 23:59:59 CLS Outpatient Raman VELAZCO, [facility] [id number] 05/21/2015 10:44:00 2014 23:59:59 CLS Outpatient Raman VELAZCO, [facility] [id number] 05/14/2015 10:00:00 2014 23:59:59 CLS Preadmit Raman VELAZCO, [facility] [id number] 05/06/2015 11:24:00 2014 23:59:59 CLS Outpatient Raman VELAZCO, [facility] RAD [id number] 04/10/2015 20:56:00 2014 14:32:00 DIS Inpatient SHIRAZ VELAZCO, [facility] MED/SURG [id number] 04/10/2015 14:00:00 2014 23:59:59 CLS Outpatient ROSALES VELAZCO, [facility] EMS [id number] 02/18/2015 10:09:00 2014 23:59:59 CLS Outpatient LINDA VELAZCO, [facility] [id number] 07/28/2014 05:52:00 2013 23:59:59 CLS Outpatient Raman VELAZCO, [facility] LAB [id number] 07/19/2014 04:45:00 2013 14:30:00 DIS Inpatient SHIRAZ VELAZCO, [facility] MED/SURG [id number] 07/19/2014 01:50:00 2013 23:59:59 CLS Outpatient JOEL VELAZCO, [facility] EMS [id number] 05/22/2014 06:29:00 2013 23:59:59 CLS Outpatient Raman VELAZCO, [facility] LAB [id number] 04/26/2014 19:53:00 2013 23:59:59 CLS Outpatient [facility] EMS [id number] 04/26/2014 19:53:00 2013 21:31:00 DIS Emergency [facility] ED [id number] 03/30/2014 21:30:00 2013 15:00:00 DIS Inpatient JESUS VELAZCO, [facility] MED/SURG [id number] 03/30/2014 19:15:00 2013 23:59:59 [facility] [id number] 12/23/2013 10:59:00 2013 23:59:59 CLS Outpatient Raman VELAZCO, [facility] LAB [id number] 11/04/2013 16:28:00 2012 17:58:00 DIS Emergency TOBY VELAZCO, [facility] ED [id number] 09/10/2013 09:52:00 2012 23:59:59 CLS Outpatient Raman VELAZCO, [facility] RAD [id number] 06/06/2013 11:42:00 2012 23:59:59 CLS Outpatient Raman VELAZCO, [facility] LAB [id number] 01/05/2017 13:16:00 ACT Outpatient Raman VELAZCO, [facility] LAB DROP OFF [facility] [id number] 09/09/2016 17:21:00 ACT Outpatient ROSALES VELAZCO, [facility] EMS TRANSPORT TO THE HOSPITAL [id number] 04/17/2016 18:42:00 ACT Outpatient ROSALES VELAZCO, [facility] EMS [id number] 09/21/2014 13:54:00 Document Registration [id number] 05/02/2013 11:06:00 Document Registration [id number] 04/15/2013 09:50:00 Document Registration [id number] 02/06/2013 22:55:00 Document Registration [id number] 02/06/2013 22:49:00 Document Registration [id number] 01/10/2013 09:52:00 Document Registration [id number] 12/24/2012 09:40:00 Document Registration [id number] 10/16/2012 11:25:00 Document Registration [id number] 07/31/2012 10:00:00 Document Registration [id number] 05/16/2012 09:46:00 Document Registration
--- OUTSIDE RECORDS SUMMARY | 2017-01-08 17:23 | XMS REPORT | Continuity Of Care Document ---
Author Author [facility] Organization [facility] Address [address] [facility] [place] [address] Phone Care Team Providers Care Inside Sales Advisor Name Role Phone DAVIDSON VELAZCO, E PP [phone] KYLAH VELAZCO, L Unavailable SONIYA VELAZCO, Hyacinth Unavailable KARAN REES DO AT Results Lab Results Visit/Account #[id number] (April 26, 2014 10:38pm - May 01, 2014 2:45pm) Test Result Date/Time 69909-4: HEMOGLOBIN AND HEMATOCRIT HEMOGLOBIN(12.0-16.0 G/DL) 9.4 G/DL April 28, 2014 7:02am 6.4 G/DL April 29, 2014 5:51am 8.5 G/DL April 30, 2014 6:08am HEMATOCRIT(36.0-46.0 %) 29.5 % April 28, 2014 7:02am 20.3 % April 29, 2014 5:51am 25.4 % April 30, 2014 6:08am 38141-7: COMPLETE BLOOD COUNT WITH DIFF WHITE BLOOD COUNT(4.0-11.0 10E3/UL) 12.7 10E3/UL April 27, 2014 1:56am RED BLOOD COUNT(4.00-5.20 10E6/UL) 4.11 10E6/UL April 27, 2014 1:56am HEMOGLOBIN(12.0-16.0 G/DL) 12.9 G/DL April 27, 2014 1:56am HEMATOCRIT(36.0-46.0 %) 38.3 % April 27, 2014 1:56am 87648-8: MEAN CORPUSCULAR VOLUME(82.0-100.0 FL) 93.2 FL April 27, 2014 1:56am 34379-3: MEAN CORPUSCULAR HEMOGLOBIN(26.0-34.0 PG) 31.4 PG April 27, 2014 1:56am MEAN CORPUSCULAR HGB CONC(31.5-36.5 G/DL) 33.7 G/DL April 27, 2014 1:56am RED CELL DISTRIBUTION WIDTH(11.5-14.5 %) 13.1 % April 27, 2014 1:56am 777-3: PLATELET COUNT(150-450 10E3/UL) 201 10E3/UL April 27, 2014 1:56am MEAN PLATELET VOLUME(8.2-12.4 FL) 10.0 FL April 27, 2014 1:56am 770-8: NEUTROPHILS % (AUTO)(40-70 %) 79 % April 27, 2014 1:56am LYMPHOCYTES % (AUTO)(15-45 %) 11 % April 27, 2014 1:56am 5905-5: MONOCYTES % (AUTO)(2-10 %) 8 % April 27, 2014 1:56am 713-8: EOSINOPHILS % (AUTO)(0-6 %) 0 % April 27, 2014 1:56am 706-2: BASOPHILS % (AUTO)(0-1 %) 0 % April 27, 2014 1:56am 38150-4: IMMATURE GRANS % (AUTO)(0-0 %) 1 % April 27, 2014 1:56am NUCLEATED RBCS (AUTO)(0-0 %) 0 % April 27, 2014 1:56am 751-8: NEUTROPHILS # (AUTO)(2.5-7.5 10E3/UL) 10.1 10E3/UL April 27, 2014 1:56am 89292-0: LYMPHOCYTES # (AUTO)(1.0-4.0 10E3/UL) 1.4 10E3/UL April 27, 2014 1:56am 742-7: MONOCYTES # (AUTO)(0.2-0.8 10E3/UL) 1.1 10E3/UL April 27, 2014 1:56am 711-2: EOSINOPHILS # (AUTO)(0.0-0.4 10E3/UL) 0.0 10E3/UL April 27, 2014 1:56am 704-7: BASOPHILS # (AUTO)(0.0-0.2 10E3/UL) 0.0 10E3/UL April 27, 2014 1:56am IMMATURE GRANS # (AUTO)(0.0-0.0 10E3/UL) 0.1 10E3/UL April 27, 2014 1:56am DIFF TYPE AUTOMATED April 27, 2014 1:56am 93376-1: COMPLETE BLOOD COUNT WHITE BLOOD COUNT(4.0-11.0 10E3/UL) 7.2 10E3/UL May 01, 2014 6:59am RED BLOOD COUNT(4.00-5.20 10E6/UL) 2.67 10E6/UL May 01, 2014 6:59am HEMOGLOBIN(12.0-16.0 G/DL) 8.1 G/DL May 01, 2014 6:59am HEMATOCRIT(36.0-46.0 %) 24.5 % May 01, 2014 6:59am 13657-7: MEAN CORPUSCULAR VOLUME(82.0-100.0 FL) 91.8 FL May 01, 2014 6:59am 52330-9: MEAN CORPUSCULAR HEMOGLOBIN(26.0-34.0 PG) 30.3 PG May 01, 2014 6:59am MEAN CORPUSCULAR HGB CONC(31.5-36.5 G/DL) 33.1 G/DL May 01, 2014 6:59am RED CELL DISTRIBUTION WIDTH(11.5-14.5 %) 14.9 % May 01, 2014 6:59am 777-3: PLATELET COUNT(150-450 10E3/UL) 152 10E3/UL May 01, 2014 6:59am MEAN PLATELET VOLUME(8.2-12.4 FL) 10.3 FL May 01, 2014 6:59am NUCLEATED RBCS (AUTO)(0-0 %) 0 % May 01, 2014 6:59am 78615-8: PROTHROMBIN TIME WITH INR PROTHROMBIN TIME(12.1-14.0 SEC) 12.1 SEC April 27, 2014 2:03am 68640-7: INR 0.91 Result Comments: INR reference interval applies to patients on anticoagulant therapy. Suggested INR therapeutic range for oral anticoagulant therapy: (Stabilized anticoagulated patients) Routine Therapy: 2.0 to 3.0 Recurrent Myocardial Infarction: 2.5 to 3.5 Mechanical Prosthetic Valves: 2.5 to 3.5 April 27, 2014 2:03am PARTIAL THROMBOPLASTIN TIME PARTIAL THROMBOPLASTIN TIME(22.2-37.4 SEC) 27.9 SEC April 27, 2014 2:04am URINALYSIS, DIPSTICK INF CNTRL 5778-6: COLOR,URINE YELLOW April 27, 2014 1:40am 85013-4: CLARITY,URINE CLEAR April 27, 2014 1:40am GLUCOSE, URINE(NEGATIVE MG/DL) NEGATIVE MG/DL April 27, 2014 1:40am URINE BILIRUBIN(NEGATIVE) NEGATIVE April 27, 2014 1:40am 25600-6: KETONES,URINE(NEGATIVE MG/DL) NEGATIVE MG/DL April 27, 2014 1:40am 2965-2: URINE SPECIFIC GRAVITY(1.001-1.035) 1.020 April 27, 2014 1:40am 86278-8: URINE BLOOD(NEGATIVE) NEGATIVE April 27, 2014 1:40am 2756-5: URINE PH(5.0-9.0) 6.0 April 27, 2014 1:40am URINE PROTEIN(Less than 20 MG/DL) NEGATIVE MG/DL April 27, 2014 1:40am URINE UROBILINOGEN(0.2-1.0 MG/DL) 0.2 MG/DL April 27, 2014 1:40am URINE NITRITE(NEGATIVE) NEGATIVE April 27, 2014 1:40am 5799-2: LEUKOCYTE ESTERASE ,URINE(NEGATIVE) NEGATIVE April 27, 2014 1:40am 630-4: URINE CULTURE NOT INDICATED April 27, 2014 1:40am 13069-8: COMPLETE METABOLIC PROFILE 48636-7: GLUCOSE(70-110 MG/DL) 137 MG/DL April 27, 2014 2:22am 171 MG/DL April 28, 2014 7:23am BLOOD UREA NITROGEN(6-20 MG/DL) 13 MG/DL April 27, 2014 2:22am 10 MG/DL April 28, 2014 7:23am 85910-5: CREATININE(0.50-1.20 MG/DL) 1.11 MG/DL April 27, 2014 2:22am 1.01 MG/DL April 28, 2014 7:23am 83378-9: EST GLOMERULAR FILTRATION RATE(Greater than or equal to 60) 51 Result Comments: If the patient is of -[place] descent/extraction multiply the eGFR value by 1.212 to obtain the actual eGFR. >=60 mg/dL Normal 30-59 mg/dL Moderate Kidney Disease 15-29 mg/dL Severe Kidney Disease <15 mg/dL Kidney Failure April 27, 2014 2:22am 57 Result Comments: If the patient is of -[place] descent/extraction multiply the eGFR value by 1.212 to obtain the actual eGFR. >=60 mg/dL Normal 30-59 mg/dL Moderate Kidney Disease 15-29 mg/dL Severe Kidney Disease <15 mg/dL Kidney Failure April 28, 2014 7:23am BUN CREATININE RATIO(10.0-20.0 RATIO) 12.0 RATIO April 27, 2014 2:22am 10.0 RATIO April 28, 2014 7:23am 08266-9: SODIUM(135-145 MMOL/L) 137 MMOL/L April 27, 2014 2:22am 134 MMOL/L April 28, 2014 7:23am 64606-6: POTASSIUM(3.6-5.0 MMOL/L) 3.0 MMOL/L April 27, 2014 2:22am 3.9 MMOL/L April 28, 2014 7:23am 00596-3: CHLORIDE(101-111 MMOL/L) 102 MMOL/L April 27, 2014 2:22am 107 MMOL/L April 28, 2014 7:23am 2027-9: CO2(21-31 MMOL/L) 26.0 MMOL/L April 27, 2014 2:22am 21.0 MMOL/L April 28, 2014 7:23am 50456-3: ANION GAP(8-18) 12 April 27, 2014 2:22am 10 April 28, 2014 7:23am OSMO CALCULATED(270.0-290.0) 276.1 April 27, 2014 2:22am 271.3 April 28, 2014 7:23am CALCIUM(8.5-10.5 MG/DL) 8.5 MG/DL April 27, 2014 2:22am 7.4 MG/DL April 28, 2014 7:23am 28096-2: BILIRUBIN,TOTAL(0.1-1.2 MG/DL) 0.4 MG/DL April 27, 2014 2:22am 0.4 MG/DL April 28, 2014 7:23am ALKALINE PHOSPHATASE(42-121 U/L) 125 U/L April 27, 2014 2:22am 96 U/L April 28, 2014 7:23am ASPARTATE AMINO TRANSFERASE(10-42 U/L) 22 U/L April 27, 2014 2:22am 22 U/L April 28, 2014 7:23am ALANINE AMINOTRANSFERASE(10-60 U/L) 27 U/L April 27, 2014 2:22am 19 U/L April 28, 2014 7:23am 67403-5: TOTAL PROTEIN(6.4-8.2 G/DL) 6.0 G/DL April 27, 2014 2:22am 4.9 G/DL April 28, 2014 7:23am ALBUMIN(3.5-5.5 G/DL) 3.1 G/DL April 27, 2014 2:22am 2.3 G/DL April 28, 2014 7:23am 2336-6: GLOBULIN(2.4-3.6) 2.9 April 27, 2014 2:22am 2.6 April 28, 2014 7:23am 1759-0: ALBUMIN/GLOBULIN RATIO(0.9-1.8 RATIO) 1.1 RATIO April 27, 2014 2:22am 0.9 RATIO April 28, 2014 7:23am BASIC METABOLIC PANEL 98646-1: GLUCOSE(70-110 MG/DL) 115 MG/DL April 29, 2014 1:27pm 88 MG/DL May 01, 2014 7:01am BLOOD UREA NITROGEN(6-20 MG/DL) 12 MG/DL April 29, 2014 1:27pm 9 MG/DL May 01, 2014 7:01am 15571-2: CREATININE(0.50-1.20 MG/DL) 0.79 MG/DL April 29, 2014 1:27pm 0.84 MG/DL May 01, 2014 7:01am 56094-3: EST GLOMERULAR FILTRATION RATE(Greater than or equal to 60) Greater than or equal to 60 Result Comments: If the patient is of -[place] descent/extraction multiply the eGFR value by 1.212 to obtain the actual eGFR. >=60 mg/dL Normal 30-59 mg/dL Moderate Kidney Disease 15-29 mg/dL Severe Kidney Disease <15 mg/dL Kidney Failure April 29, 2014 1:27pm Greater than or equal to 60 Result Comments: If the patient is of -[place] descent/extraction multiply the eGFR value by 1.212 to obtain the actual eGFR. >=60 mg/dL Normal 30-59 mg/dL Moderate Kidney Disease 15-29 mg/dL Severe Kidney Disease <15 mg/dL Kidney Failure May 01, 2014 7:01am BUN CREATININE RATIO(10.0-20.0 RATIO) 15.0 RATIO April 29, 2014 1:27pm 11.0 RATIO May 01, 2014 7:01am 10838-8: SODIUM(135-145 MMOL/L) 132 MMOL/L April 29, 2014 1:27pm 137 MMOL/L May 01, 2014 7:01am 79290-6: POTASSIUM(3.6-5.0 MMOL/L) 3.5 MMOL/L April 29, 2014 1:27pm 3.3 MMOL/L May 01, 2014 7:01am 80992-4: CHLORIDE(101-111 MMOL/L) 106 MMOL/L April 29, 2014 1:27pm 109 MMOL/L May 01, 2014 7:01am 2028-9: CO2(21-31 MMOL/L) 21.0 MMOL/L April 29, 2014 1:27pm 23.0 MMOL/L May 01, 2014 7:01am 76921-8: ANION GAP(8-18) 9 April 29, 2014 1:27pm 8 May 01, 2014 7:01am OSMO CALCULATED(270.0-290.0) 265.2 April 29, 2014 1:27pm 271.9 May 01, 2014 7:01am CALCIUM(8.5-10.5 MG/DL) 7.2 MG/DL April 29, 2014 1:27pm 7.6 MG/DL May 01, 2014 7:01am Microbiology Results Visit/Account #[id number] (April 26, 2014 10:38pm - May 01, 2014 2:45pm) Procedure Result 81970-2: MRSA SCREEN FOR INFEC CONTROL 92483-0: MRSA SCREEN FOR INFEC CONTROL Result Instance On April 28, 2014 1:29pm Source: [place] Special Result Comments: No growth Bloodbank Results Visit/Account #[id number] (April 26, 2014 10:38pm - May 01, 2014 2:45pm) Test Result ABO/RH 08915-6: BLOOD TYPE A POSITIVE on April 29, 2014 7:58am ANTIBODY SCREEN ANTIBODY SCREEN NEGATIVE on April 29, 2014 9:43am Allergies and Adverse Reactions Allergies and Adverse Reactions Patient Unit Number: [id number] Agent Type Reaction Severity Status Date CODEINE Drug Allergy Unknown Unknown Active Unknown Date ACETAMINOPHEN Drug Allergy Unknown Unknown Active Unknown Date Problem List Problem List Visit/Account #[id number] (April 26, 2014 10:38pm - May 01, 2014 2:45pm) Acute Problems: Code/Condition Comments Documented Start Date Documented Resolved Date Code (s) Hip fracture, left April 27, 2014 ICD10: S72.002A Fracture of left hip ICD9: 820.8 Fracture of left hip SNOMED: 9613919 Fracture of left hip Seizure disorder ICD10: G40.909 Seizure disorder ICD9: 345.90 Seizure disorder SNOMED: 670483598 Seizure disorder 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 ICD9: 253.6 Syndrome of inappropriate secretion of antidiuretic hormone SNOMED: 38921762 Syndrome of inappropriate secretion of antidiuretic hormone Intertrochanteric fracture of right hip ICD10: S72.141A Intertrochanteric fracture of right femur ICD9: 820.21 Intertrochanteric fracture of right femur SNOMED: 020717439 Intertrochanteric fracture of right femur Hypokalemia ICD10: E87.6 Hypokalemia ICD9: 276.8 Hypokalemia SNOMED: 09036691 Hypokalemia Acute blood loss anemia ICD10: D62 Acute posthemorrhagic anemia ICD9: 285.1 Acute posthemorrhagic anemia SNOMED: 156418563 Acute posthemorrhagic anemia Plan of Care Plan Of Care No Plan Of Care Data Vital Signs Vital Signs Visit/Account #[id number] (April 26, 2014 10:38pm - May 01, 2014 2:45pm) Label First Result Last Result 0-2: O2% 92 % April 26, 2014 10:26pm 96 % May 01, 2014 9:20am 8310-5: Celsius Body Temperature 36.65289 Chelly April 26, 2014 10:26pm 37.83580 Chelly May 01, 2014 9:20am 8310-5: Fahrenheit Body Temperature 98.1 [degF] April 26, 2014 10:26pm 98.8 [degF] May 01, 2014 9:20am 8480-04/8462-4: Systolic/Diastolic Blood Pressure 153/81 mm[Hg] April 26, 2014 10:26pm 128/66 mm[Hg] May 01, 2014 9:20am 8867-4: Heart Rate 63 /min April 26, 2014 10:26pm 77 /min May 01, 2014 9:20am 9279-1: Respiratory Rate 18 /min April 26, 2014 10:26pm 16 /min May 01, 2014 9:20am Functional Status Functional Status Visit/Account #[id number] (April 26, 2014 10:38pm - May 01, 2014 2:45pm) Intervention: Physical Therapy Activity Record: PT documented on April 28, 2014 12:17pm Activity Activity Ability Needs Assistance 2 Person Assist Intervention: Physical Therapy Activity Record: PT documented on April 28, 2014 1 :40pm Activity Activity Ability Needs Assistance 1 Person Assist 2 Person Assist Mobility Ambulation Ability Min Assist 1 Person 2 Person Transfers Supine to Sit Min Assist Mod Assist Of 2 Person Sit to Stand Min Assist Mod Assist Of 2 Person SPT Min Assist With Assistive Device Of 2 Person Intervention: Physical Therapy Activity Record: PT documented on April 29, 2014 10:21am Activity Activity Ability Needs Assistance 1 Person Assist 2 Person Assist Intervention: Physical Therapy Activity Record: PT documented on April 30, 2014 12:52pm Activity Activity Ability Needs Assistance 1 Person Assist Mobility Ambulation Ability Min Assist Mod Assist 1 Person 2 Person Transfers Supine to Sit Mod Assist Of 1 Person Sit to Stand Mod Assist Of 2 Person SPT Min Assist With Assistive Device Mod Assist Of 1 Person Of 2 Person Medications Home Medications Visit/Account #[id number] (April 26, 2014 10:38pm - May 01, 2014 2:45pm) Medication Route Sig/Schedule Precondition/Indication Comments/Instructions Codes LAMICTAL(LamoTRIgine) 100 MG TABLET ORAL DAILY: DAILY LAMICTAL (LamoTRIgine) RxNorm: L726914 LAMICTAL (LamoTRIgine) RxNorm: S081382 LAMICTAL (LamoTRIgine) NDC: 40924701713 Declomycin(DEMECLOCYCLINE HCL) 300 MG TAB ORAL BID: TWICE A DAY Declomycin (DEMECLOCYCLINE HCL) RxNorm: H644211 Declomycin (DEMECLOCYCLINE HCL) NDC: 89818961912 KEPPRA(LevETIRAcetam) 500 MG TABLET ORAL BID: TWICE A DAY KEPPRA (LevETIRAcetam) RxNorm: X748258 KEPPRA (LevETIRAcetam) RxNorm: B100323 KEPPRA (LevETIRAcetam) NDC: 15146220074 TOPAMAX(TOPIRAMATE) 100 MG TABLET ORAL BID: TWICE A DAY TOPAMAX (TOPIRAMATE) RxNorm: S636933 TOPAMAX (TOPIRAMATE) RxNorm: S504129 TOPAMAX (TOPIRAMATE) NDC: 59140257209 Trileptal(OXcarbazepine) 300 MG TABLET ORAL TID: 3 TIMES A DAY Trileptal (OXcarbazepine) RxNorm: X116365 Trileptal (OXcarbazepine) NDC: 03374877377 Metoclopramide(METOCLOPRAMIDE HCL) 5 MG TAB ORAL 30AC: 30 MIN BEFORE MEALS Metoclopramide (METOCLOPRAMIDE HCL) RxNorm: G180290 Metoclopramide (METOCLOPRAMIDE HCL) NDC: 77678075398 Lamictal(LamoTRIgine) 100 MG TAB ORAL DAILY: DAILY Lamictal (LamoTRIgine) RxNorm: W188513 Lamictal (LamoTRIgine) RxNorm: X722079 Lamictal (LamoTRIgine) NDC: 66266549619 MILK OF MAGNESIA(MAGNESIUM HYDROXIDE) 400 MG/5 ML ORAL.SUSP ORAL DAILY: DAILY MILK OF MAGNESIA (MAGNESIUM HYDROXIDE) RxNorm: A802109 MILK OF MAGNESIA (MAGNESIUM HYDROXIDE) NDC: 91554197282 Ibuprofen(IBUPROFEN) 200 MG TAB ORAL Q8H Ibuprofen (IBUPROFEN) NDC: 22045449136 LORazepam INJ(LORazepam) 2 MG/1 ML VIAL INTRAVEN PRN: NEEDED LORazepam INJ (LORazepam) RxNorm: K413196 LORazepam INJ (LORazepam) NDC: 71564276073 Inpatient/Ordered Medications Visit/Account #[id number] (April 26, 2014 10:38pm - May 01, 2014 2:45pm) Medication Route Sig/Schedule Precondition/Indication Comments/Instructions Codes IV Medication Carriers: ANCEF 1 GM/50 ML(CEFAZOLIN/DEXTROSE) 1 GM/50 ML INJECTION Total Dose: 50 ML INTRAVEN .Preop (Rate: 100 MLS/HR Duration: 30 MIN) Clinical Indication: Clinical Indication: ABX Preop Prophylaxis Label Comments: To be given by surgical staff within 1 hour of surgical incision Carriers: ANCEF 1 GM/50 ML (CEFAZOLIN/DEXTROSE) RxNorm: L378563 ANCEF 1 GM/50 ML (CEFAZOLIN/DEXTROSE) NDC: 32720176756 IV Medication Carriers: D5W NS(DEXTROSE/SOD CHLORIDE) 1000 ML INJECTION Total Dose: 1000 ML INTRAVEN .[id number] (Rate: 60 MLS/HR Duration: 16 HR 40 MIN) Carriers: D5W NS (DEXTROSE/SOD CHLORIDE) RxNorm: I681248 D5W NS (DEXTROSE/SOD CHLORIDE) NDC: 82446780270 MORPHINE SULFATE 4 MG/ML INJECTION Total Dose: 2 ML INTRAVEN Q4H PRN Reason: pain Label Comments: MAY INCREASE FALL RISK (MORPHINE SULFATE) RxNorm: T105648 (MORPHINE SULFATE) NDC: 22152869897 DECLOMYCIN(DEMECLOCYCLINE HCL) 150 MG TAB Total Dose: 300 MG ORAL 60BIDAC: 60 MIN BEFORE BKFST & SUPPER Label Comments: TAKE ON AN EMPTY STOMACH (1 HR BEFORE OR 2 HRS AFTER A MEAL) GIVE WITH PLENTY OF FLUID DECLOMYCIN (DEMECLOCYCLINE HCL) RxNorm: I985933 DECLOMYCIN (DEMECLOCYCLINE HCL) NDC: 55781263273 LaMICtal(LamoTRIgine) 100 MG TAB Total Dose: 100 MG ORAL DAILY@18 LaMICtal (LamoTRIgine) RxNorm: V609847 LaMICtal (LamoTRIgine) RxNorm: B061838 LaMICtal (LamoTRIgine) NDC: 05635720087 LaMICtal(LamoTRIgine) 100 MG TAB Total Dose: 50 MG ORAL DAILY: DAILY LaMICtal (LamoTRIgine) RxNorm: M946352 LaMICtal (LamoTRIgine) RxNorm: I427227 LaMICtal (LamoTRIgine) NDC: 09777217618 KEPPRA(LevETIRAcetam) 500 MG TAB Total Dose: 1250 MG ORAL BID: TWICE A DAY KEPPRA (LevETIRAcetam) RxNorm: O009879 KEPPRA (LevETIRAcetam) RxNorm: R969999 KEPPRA (LevETIRAcetam) NDC: 53030783588 REGLAN(METOCLOPRAMIDE HCL) 5 MG TAB Total Dose: 5 MG ORAL 30AC: 30 MIN BEFORE MEALS REGLAN (METOCLOPRAMIDE HCL) RxNorm: J842293 REGLAN (METOCLOPRAMIDE HCL) NDC: 41823673629 TRILEPTAL(OXcarbazepine) 300 MG TAB Total Dose: 300 MG ORAL TID: 3 TIMES A DAY TRILEPTAL (OXcarbazepine) RxNorm: A708918 TRILEPTAL (OXcarbazepine) NDC: 49433435403 TOPAMAX(TOPIRAMATE) 100 MG TAB Total Dose: 100 MG ORAL BID: TWICE A DAY TOPAMAX (TOPIRAMATE) RxNorm: A876015 TOPAMAX (TOPIRAMATE) NDC: 98542902508 SENOKOT(SENNA) 1 TAB TAB Total Dose: 2 TAB ORAL DAILY: DAILY Rx Order Comments: Order filed UNV: Dose Warnings differ from order worker SENOKOT (SENNA) RxNorm: X152226 SENOKOT (SENNA) NDC: 92600845844 KCL 10% SF LIQD(POTASSIUM CHLORIDE) 20 MEQ/15 ML LIQUID Total Dose: 60 ML ORAL NOW: NOW Label Comments: DILUTE PRIOR TO ADMINISTRATION KCL 10% SF LIQD (POTASSIUM CHLORIDE) RxNorm: I687072 KCL 10% SF LIQD (POTASSIUM CHLORIDE) NDC: 01272589259 NICODERM 21 MG PATCH(NICOTINE) 1 PATCH PATCH Total Dose: 1 PATCH TOPICALLY DAILY: DAILY Label Comments: WEAR GLOVES FOR HANDLING OR WASH HANDS AFTER HANDLING. NICODERM 21 MG PATCH (NICOTINE) RxNorm: A301591 NICODERM 21 MG PATCH (NICOTINE) NDC: 73599932371 VERSED INJ(MIDAZOLAM HCL) 2 MG/2 ML INJECTION Total Dose: 2 MG INTRAVEN .PSCU.BERTHA Rx Order Comments: Order placed as verified: Dose Warnings differ from order worker Dose Warnings differ from order worker VERSED INJ (MIDAZOLAM HCL) RxNorm: U893243 VERSED INJ (MIDAZOLAM HCL) NDC: 60359240240 ZOFRAN INJ(ONDansetron HCL) 4 MG/2 ML INJECTION Total Dose: 4 MG INTRAVEN .PSCU.BERTHA Rx Order Comments: Order placed as verified: Dose Warnings differ from order worker Dose Warnings differ from order worker ZOFRAN INJ (ONDansetron HCL) RxNorm: I709810 ZOFRAN INJ (ONDansetron HCL) NDC: 96238020658 IV Medication Carriers: ANCEF 1 GM/50 ML(CEFAZOLIN/DEXTROSE) 1 GM/50 ML INJECTION Total Dose: 50 ML INTRAVEN Q8S (Rate: 100 MLS/HR Duration: 30 MIN) Clinical Indication: Clinical Indication: ABX Surgical Postop Carriers: ANCEF 1 GM/50 ML (CEFAZOLIN/DEXTROSE) RxNorm: Z166962 ANCEF 1 GM/50 ML (CEFAZOLIN/DEXTROSE) NDC: 07944456951 LOVENOX(ENOXAPARIN) 30 MG/0.3 ML INJECTION Total Dose: 30 MG SUBCUTANEOUSLY BID@ Label Comments: INJECT SC INTO ABDOMINAL WALL ONLY. LOVENOX (ENOXAPARIN) RxNorm: Y111872 LOVENOX (ENOXAPARIN) RxNorm: B442327 LOVENOX (ENOXAPARIN) NDC: 41895861925 MORPHINE SULFATE 10 MG/ML INJECTION Total Dose: 0 ML INTRAVEN Q10M PRN Reason: PRN Reason: SEVERE PAIN Label Comments: to be given in PACU only Special Dose Instructions: 2-4 mg may repeat up to 20 mg (MORPHINE SULFATE) RxNorm: M381712 (MORPHINE SULFATE) NDC: 95926997253 MORPHINE SULFATE 4 MG/ML INJECTION Total Dose: 2 ML INTRAVEN Q2H PRN Reason: pain Label Comments: MAY INCREASE FALL RISK (MORPHINE SULFATE) RxNorm: Q489987 (MORPHINE SULFATE) NDC: 44847750489 MORPHINE SULFATE 4 MG/ML INJECTION Total Dose: 4 MG INTRAVEN Q3H PRN Reason: pain Label Comments: MAY INCREASE FALL RISK (MORPHINE SULFATE) RxNorm: F719322 (MORPHINE SULFATE) NDC: 34245922225 ROXICODONE(OxyCODONE HCL) 5 MG TAB Total Dose: 5 MG ORAL Q6H PRN Reason: PRN Reason: PAIN Label Comments: OXYCODONE IMMED RELEASE MAY INCREASE FALL RISK ROXICODONE (OxyCODONE HCL) RxNorm: A3671680 ROXICODONE (OxyCODONE HCL) NDC: 40905823902 DECLOMYCIN(DEMECLOCYCLINE HCL) 150 MG TAB Total Dose: 150 MG ORAL NOW: NOW DECLOMYCIN (DEMECLOCYCLINE HCL) RxNorm: K151208 DECLOMYCIN (DEMECLOCYCLINE HCL) NDC: 49535383064 Discharge Medications Visit/Account #[id number] (April 26, 2014 10:38pm - May 01, 2014 2:45pm) Medication Route Sig/Schedule Precondition/Indication Comments/Instructions Codes LAMICTAL(LamoTRIgine) 100 MG TABLET ORAL DAILY: DAILY LAMICTAL (LamoTRIgine) RxNorm: A551534 LAMICTAL (LamoTRIgine) RxNorm: M324000 LAMICTAL (LamoTRIgine) NDC: 93329270144 Declomycin(DEMECLOCYCLINE HCL) 300 MG TAB ORAL BID: TWICE A DAY Declomycin (DEMECLOCYCLINE HCL) RxNorm: D691043 Declomycin (DEMECLOCYCLINE HCL) NDC: 05580386797 KEPPRA(LevETIRAcetam) 500 MG TABLET ORAL BID: TWICE A DAY KEPPRA (LevETIRAcetam) RxNorm: G524580 KEPPRA (LevETIRAcetam) RxNorm: B276429 KEPPRA (LevETIRAcetam) NDC: 10641944031 TOPAMAX(TOPIRAMATE) 100 MG TABLET ORAL BID: TWICE A DAY TOPAMAX (TOPIRAMATE) RxNorm: C629459 TOPAMAX (TOPIRAMATE) RxNorm: W023067 TOPAMAX (TOPIRAMATE) NDC: 88461711008 Trileptal(OXcarbazepine) 300 MG TABLET ORAL TID: 3 TIMES A DAY Trileptal (OXcarbazepine) RxNorm: D566048 Trileptal (OXcarbazepine) NDC: 17987272932 Metoclopramide(METOCLOPRAMIDE HCL) 5 MG TAB ORAL 30AC: 30 MIN BEFORE MEALS Metoclopramide (METOCLOPRAMIDE HCL) RxNorm: N504332 Metoclopramide (METOCLOPRAMIDE HCL) NDC: 64764506145 Lamictal(LamoTRIgine) 100 MG TAB ORAL DAILY: DAILY Lamictal (LamoTRIgine) RxNorm: M840441 Lamictal (LamoTRIgine) RxNorm: B538347 Lamictal (LamoTRIgine) NDC: 03963673106 MILK OF MAGNESIA(MAGNESIUM HYDROXIDE) 400 MG/5 ML ORAL.SUSP ORAL DAILY: DAILY MILK OF MAGNESIA (MAGNESIUM HYDROXIDE) RxNorm: Y029465 MILK OF MAGNESIA (MAGNESIUM HYDROXIDE) NDC: 04356872952 Ibuprofen(IBUPROFEN) 200 MG TAB ORAL Q8H Ibuprofen (IBUPROFEN) NDC: 11954199694 LORazepam INJ(LORazepam) 2 MG/1 ML VIAL INTRAVEN PRN: NEEDED LORazepam INJ (LORazepam) RxNorm: M657218 LORazepam INJ (LORazepam) NDC: 70240804979 Lovenox(ENOXAPARIN SODIUM) 40 MG/0.4 ML INJECTION SUB-Q DAILY: DAILY Lovenox (ENOXAPARIN SODIUM) RxNorm: Z821829 Lovenox (ENOXAPARIN SODIUM) RxNorm: U040926 Lovenox (ENOXAPARIN SODIUM) NDC: 28070220551 OXYCODONE HCL(OxyCODONE) 5 MG TAB ORAL Q6H OXYCODONE HCL (OxyCODONE) RxNorm: R4107295 OXYCODONE HCL (OxyCODONE) RxNorm: P5377738 OXYCODONE HCL (OxyCODONE) NDC: 45067230397 Senna 8.6 Mg(SENNA) 1 TAB TAB ORAL DAILY: DAILY Senna 8.6 Mg (SENNA) NDC: 49933806062 History Of Encounters Encounters Visit/Account #[id number] (April 26, 2014 10:38pm - May 01, 2014 2:45pm) Account Status Physican Of Record Reason For Visit Visit Diagnosis Start Date/Time Stop Date/Time IN KARAN REES DO HIP FRACTURE, LEFT 719.45: JOINT PAIN-PELVIS ICD9 Apr 26, 2014 10:38pm May 01, 2014 2:45pm History of Procedures Procedure List Visit/Account #[id number] (April 26, 2014 10:38pm - May 01, 2014 2:45pm) Code/Procedure Date 79.15: CLOSED RED-INT FIX FEMUR April 27, 2014 Discharge Instructions Discharge Instructions Visit/Account #[id number] (April 26, 2014 10:38pm - May 01, 2014 2:45pm) Department: MEDICAL RECORDS [ Report: DISCHARGE SUMMARY ] Dictated By: KARAN REES DO Signed By: KARAN REES DO [address] [address] Patient: ANA ROBERTSON UNIT/MR#: [id number] : 1960 Age: 54 Sex: F Report#: [id number] Room#: 520-A Location: [facility] Dictator: KARAN REES DO Attn Phys: KARAN REES DO Adm Date: 04/26/14 Disch Date: 05/01/14 ~DISCHARGE SUMMARY~ Signed ATTENDING PHYSICIAN: Hospitalist service. WOOD TILE INSTALLATION HELPER PHYSICIAN: Dr. Tuan Monique PROCEDURE: Intramedullary hip screw on the left. ADMISSION DIAGNOSES: 1. Left hip fracture. 2. Seizure disorder. 3. Syndrome of inappropriate antidiuretic hormone. DISCHARGE DIAGNOSES: 1. Left hip fracture status post open reduction and internal fixation. 2. Seizure disorder. 3. Syndrome of inappropriate antidiuretic hormone. 4. Hypokalemia. 5. Acute blood loss anemia. BRIEF HOSPITAL COURSE: This is a 54-year-old female with history of seizure disorder and SIADH, who suffered a fall at her care facility. The patient suffered a left hip fracture was transferred from [place] to [facility]. The patient was transferred here for orthopedic management. The patient was seen by Dr. Monique, and he performed left intramedullary screw in the hip on April 27, 2014. The patient's postoperative course was without incident. PT and OT were consulted, and the patient did well with those therapies. 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 The patient had no seizure activity while hospitalized, and the patient's sodium level remained within normal. She does take demeclocycline chronically, and this was continued while here. Postoperatively, the patient did have an acute blood loss anemia. Her hemoglobin on admission was 12.9, it did trend downward to 6.4. The patient was transfused 2 units. Hemoglobin after transfusion was 8.5. By day of discharge, it was stable. Care management was consulted to work with the patient's long-term care facility. They were able to take the patient back and perform PT and OT as needed. The patient's medical conditions are stabilized, so she was discharged back to her long-term care. DISCHARGE MEDICATIONS: New prescriptions include: 1. Lovenox 40 mg subcutaneously daily for 10 days. 2. Oxycodone 5 mg p.o. every 6 hours as needed for pain. 3. Senna 2 tablets daily as needed for constipation. Continue home: 1. Demeclocycline. 2. Ibuprofen. 3. Lamictal at both doses. 4. Keppra. 5. Ativan. 6. Milk of Magnesia. 7. Reglan. 8. Trileptal. 9. Topamax. DISCHARGE INSTRUCTIONS: The patient is to have weightbearing as tolerated and has to work with Physical and Occupational Therapy at her care facility. The patient is to have regular diet. She is to keep her surgical incision clean, dry, and covered with dressing until felix are removed on May 11. She is to have x-rays of her proximal left femur and 2 views in [address] Monique will review them online. The patient is to follow up with Dr. Phelps. I did speak with him prior to the patient's discharge. He is aware that the patient's hemoglobin was low and will need to repeated. This can be done at her long-term care facility and has been ordered for Sunday. Those results are to be called to Dr. Phelps. He will see the patient after she has her 1st postoperative visit with Dr. Monique. TIME SPENT: Discharge planning with care management and primary care physician took over 30 minutes. CS:Anamaria [id number] D. 05/01/2014 T. 05/02/2014 CC: DO YUNG DESAI MD PETER E DEWITT, MD ~ Dictated By: KARAN REES DO 05/01/14 1440 Signed By: KARAN REES DO 05/02/14 1332 KARAN REES DO 05/02/14 1332 Social History Social History No Social History Data Immunizations Immunizations Patient Unit Number: [id number] Immunizations No Immunizations Administered
--- OUTSIDE RECORDS SUMMARY | 2017-01-08 17:23 | XMS REPORT | Continuity of Care Document ---
Author Author [facility] Organization [facility] Address Unknown Phone Unavailable Care Team Providers Care Fruit Or Nut Farm Worker Name Role Phone David Camargo MD Primary Care Physician [phone] Insurance Providers Payer Name Policy Number Subscriber Name Relationship Medicare A And B [id number] Ana Draper 18 Self / Same As Patient Medicare Other [id number] Ana Draper 18 Self / Same As Patient Chief Complaint and Reason for Visit Chief Complaint DX:SEIZURE; ALTERED MENTAL STATUS Reason for Visit Maninder's paralysis Problems Medical Problems Problem Onset Date Status Seizure disorder 11/04/2013 Active Seizure ~03/30/2014 Active Fall on same level from slipping, tripping or stumbling ~04/26/2014 Active Hip pain ~04/26/2014 Active Closed fracture of neck of femur ~04/26/2014 Active Status epilepticus 07/19/2014 Active Altered mental status 07/19/2014 Active Hyponatremia 07/21/2014 Active 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 Hospital Discharge Instructions Patient's Instructions Instructions Instructions You have been diagnosed with a postictal paralysis, notably in your left arm. This should resolve over the next 2-3 days. If you have not completely resolved by Sunday, you need to see Dr. Camargo. Please keep your previously scheduled follow up appointments with Dr. Sherwood. Please continue your home medications as prescribed. No new medications have been prescribed. Activity Instructions As tolerated. Doctor's Appointment Per above. Discharge Diet: Regular Plan of Care Discharge Date 04/11/15 2:32pm Disposition 03 XFER SNF Prescriptions See Medications Section Follow-up Orders BASIC METABOLIC PANEL* Referrals David Camargo MD ([facility]) Within 1 week Address: [address] [place] [id number] Aleks Sherwood MD (NEUROLOGY) Within 4-6 weeks David Camargo MD ([facility]) 07/28/14 Address: [address] [place] [id number] Functional Status No functional status results. Allergies, Adverse Reactions, Alerts Allergen Type Severity Reaction Status Last Updated Codeine Allergy Unknown Active 03/31/14 Acetaminophen Allergy Unknown Active 03/31/14 Immunizations No immunization records. Vital Signs Acute Vital Signs Vital Response Date/Time Temperature (Fahrenheit) 98.3 Pulse 77 bpm Respirations 16 Height 5 ft 3 in Weight 114 lb Body Mass Index 20.3 kg/m^2 Results Test Source Date Result Interp. Ref. Range Comments Activated Partial Thromboplast Time March 30, 2014 7:49pm 30.3 SEC N 25.0- 39.0 Collected by nurse? N Alanine Aminotransferase (ALT/SGPT) April 11, 2015 5:15am 27 U/L L 30-65 Collected by nurse? N Albumin April 11, 2015 5:15am 3.2 g/dL L 3.4-5.0 Collected by nurse? N Albumin/Globulin Ratio April 11, 2015 5:15am 1.032 L 1.1-1.8 Collected by nurse? N Alkaline Phosphatase April 11, 2015 5:15am 146 U/L H 38-126 Collected by nurse? N Amilcar Test March 30, 2014 8:10pm Na Collected by nurse? N Ammonia March 30, 2014 7:49pm 33 umol/L 9-35 Collected by nurse? N Anion Gap April 11, 2015 5:15am 10.4 MEQ/L N 3-15 Collected by nurse? N Arterial Blood Base Excess March 30, 2014 [...] at 2017 Aspartate Amino Transf (AST/SGOT) April 11, 2015 5:15am 27 U/L N 15-37 Collected by nurse? N B-Type Natriuretic Peptide March 30, 2014 7:49pm 25 PG/ML N 0-100 Collected by nurse? N BUN/Creatinine Ratio April 11, 2015 5:15am 9 L 10-20 Collected by nurse ? N Band Neutrophils % February 06, 2013 10:40pm 0 % N 0-6 Basophils # (Auto) April 11, 2015 5:15am 0.0 10^3uL Collected by nurse? N Basophils % February 06, 2013 10:40pm 0 % N 0-1 Basophils (%) (Auto) April 11, 2015 5:15am 0 % N 0-2 Collected by nurse ? N Blood Gas Liter Flow March 30, 2014 8:10pm 3.0 LPM Collected by nurse ? N Blood Gas Puncture Site March 30, 2014 8:10pm Left brachial Collected by nurse? N Blood Morphology Comment February 06, 2013 10:40pm Normal NORMAL Blood Urea Nitrogen April 11, 2015 5:15am 9 mg/dL N 7-18 Collected by nurse? N C-Reactive Protein March 30, 2014 7:49pm < 0.50 MG/DL 0.0-0.9 Collected by nurse? N Calcium Level April 11, 2015 5:15am 8.6 mg/dL L 8.8-10.8 Collected by nurse? N Calcium/Ionized Calcium Ratio April 11, 2015 5:15am 4.0 mg/dL N 3.8-4.6 Collected by nurse? N Calculated Osmolality April 11, 2015 5:15am 253 mosm/L L 280-300 Collected by nurse? N Carbon Dioxide Level April 11, 2015 5:15am 22 mmol/L N 22-29 Collected by nurse? N Chloride Level April 11, 2015 5:15am 103 mmol/L N 98-108 Collected by nurse? N Creatine Kinase MB March 30, 2014 7:49pm 0.4 NG/ML N 0.0-6.0 Collected by nurse? N Creatinine April 11, 2015 5:15am 1.00 mg/dL N 0.6-1.2 Collected by nurse ? N Differential Total Cells Counted February 06, 2013 10:40pm 100 Eosinophils # (Auto) April 11, 2015 5:15am 0.0 10^3uL Collected by nurse? N Eosinophils % February 06, 2013 10:40pm 1 % N 0-5 Eosinophils (%) (Auto) April 11, 2015 5:15am 1 % N 0-4 Collected by nurse? N Estimat Glomerular Filtration Rate April 11, 2015 5:15am 69.6 Collected by nurse? N Estimated GFR (Non- April 11, 2015 5:15am 57.6 Collected by nurse? N Glucose Level April 11, 2015 5:15am 86 mg/dL DN 70-110 Collected by nurse? N Hematocrit April 11, 2015 5:15am 39.00 % N 35.00-45.00 Collected by nurse? N Hemoglobin April 11, 2015 5:15am 13.4 g/dL N 12.0-15.5 Collected by nurse? N Lamotrigine (Lamictal) Level July 19, 2014 2:27am 3.3 mcg/mL () Reference Range:2.5 - 15.0 Test Performed by: [place] [address] Cribbing Setter: Fede Miller III, M.D. Levetiracetam (Keppra) Level July 19, 2014 2:27am 41.4 mcg/mL () Reference Range:12.0 - 46.0 Test Performed by: [place] [address] Cribbing Setter: Fede Miller III, M.D. Lymphocytes # (Auto) April 11, 2015 5:15am 1.7 X10^3 Collected by nurse? N Lymphocytes % February 06, 2013 10:40pm 38 % H 16-34 Lymphocytes (%) (Auto) April 11, 2015 5:15am 30 % N 20-46 Collected by nurse? N Magnesium Level July 20, 2014 5:15am 2.2 MG/DL N 1.6-2.3 Collected by nurse? N Mean Corpuscular Hemoglobin April 11, 2015 5:15am 30.9 PG N 26.0-34.0 Collected by nurse? N Mean Corpuscular Hemoglobin Concent April 11, 2015 5:15am 34.4 g/dL N 31.0-37.0 Collected by nurse? N Mean Corpuscular Volume April 11, 2015 5:15am 90 FL N 80-100 Collected by nurse? N Mean Platelet Volume April 11, 2015 5:15am 9.8 FL H 6.0-9.5 Collected by nurse? N Monocytes # (Auto) April 11, 2015 5:15am 0.7 X10^3 Collected by nurse? N Monocytes % February 06, 2013 10:40pm 9 % N 0-10 Monocytes (%) (Auto) April 11, 2015 5:15am 12 % H 3-11 Collected by nurse? N Neutrophils # (Auto) April 11, 2015 5:15am 3.1 X10^3 Collected by nurse? N Neutrophils (%) (Auto) April 11, 2015 5:15am 56 % N 51-67 Collected by nurse? N Oxcarbazepine Level July 19, 2014 2:27am 19 mcg/mL 3 - 35 Test Performed by:[place] [id number] Cribbing Setter: Fede Miller III, M.D. Phosphorus Level July 20, 2014 5:15am 4.7 MG/DL N 2.4-4.9 Collected by nurse? N Platelet Count April 11, 2015 5:15am 215 10^3uL N 150-450 Collected by nurse? N Potassium Level April 11, 2015 5:15am 3.6 mmol/L DN 3.5-5.1 Collected by nurse? N Prothromb Time International Ratio March 30, 2014 7:49pm 1.0 N 0.8-1.4 Collected by nurse? N Prothrombin Time March 30, 2014 7:49pm 12.8 SEC N 12.3-14.4 Collected by nurse? N Red Blood Count April 11, 2015 5:15am 4.34 10^6uL N 4.00-5.00 Collected by nurse? N Red Cell Distribution Width April 11, 2015 5:15am 12.3 % N 11.8-15.6 Collected by nurse? N Segmented Neutrophils % February 06, 2013 10:40pm 52 % N 50-73 Serum Alcohol March 30, 2014 7:49pm < 10.0 mg/dL L 10-80 Collected by nurse? N Sodium Level April 11, 2015 5:15am 132 mmol/L L 135-150 Collected by nurse? N Thyroid Stimulating Hormone (TSH) March 30, 2014 7:49pm 4.49 UIU/ML DN 0.46-4.68 Collected by nurse? N Total Bilirubin April 11, 2015 5:15am 0.3 mg/dL N 0.1-1.0 Collected by nurse? N Total Creatine Kinase April 10, 2015 4:42pm 47 U/L N 30-135 FIRST SAMPLE HEMOLYSED Total Protein April 11, 2015 5:15am 6.3 g/dL L 6.4-8.5 Collected by nurse? N Troponin I March 30, 2014 7:49pm < [...] Negative Urine collection method Catheter Urine Specific [place] July 19, 2014 2:18am 1.015 1.005-1.030 Urine collection method Catheter Urine Urobilinogen July 19, 2014 2:18am 0.2 mg/dL 0.2-1.0 Urine collection method Catheter Urine pH July 19, 2014 2:18am 6.5 5.0 - 8.0 Urine collection method Catheter White Blood Count April 11, 2015 5:15am 5.47 10^3uL N 4.0-11.0 Collected by nurse? N Blood Culture Peripheral-:Lab Indicates After Collectio July 19, 2014 3: 04am No Growth in 5 days Procedures No known history of procedures. Encounters Encounter Location Date/Time Discharged Inpatient [facility] 04/10/15 8:56pm Registered Clinic [facility] 04/10/15 2:00pm Recent Diagnosis Maninder's paralysis
--- OUTSIDE RECORDS SUMMARY | 2017-01-08 17:23 | XMS REPORT | Continuity of Care Document ---
Author Author [facility] Address Unknown Phone Unavailable Care Team Providers Care Enterprise Analyst Name Role Phone David Camargo MD Primary Care Physician [phone] Insurance Providers Payer Name Policy Number Subscriber Name Relationship Medicare A And B [id number] Ana Draper 18 Self / Same As Patient Other1 [id number] Ana Draper 18 Self / Same As Patient Advance Directives Directive Response Recorded Date/Time Advanced Directives No 09/09/16 8:20pm Chief Complaint and Reason for Visit Chief Complaint POST DICTAL PARALYSIS Reason for Visit Seizure disorder Maninder's paralysis Problems Active Problems Medical Problem Onset Date Status Altered mental status 07/19/2014 Acute Closed fracture of neck of femur ~04/26/2014 Acute Fall on same level from slipping, tripping or stumbling ~04/26/2014 Acute Hip pain ~04/26/2014 Acute Hyponatremia 07/21/2014 Acute Postictal paralysis ~09/09/2016 Acute SIADH (syndrome of inappropriate ADH production) 07/21/2014 Acute Seizure ~03/30/2014 Acute Seizure ~04/17/2016 Acute Seizure disorder 11/04/2013 Chronic Status epilepticus 07/19/2014 Acute 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 Medications Current Home Medications Medication Dose Units Route Directions Days/Qty Instructions Start Date Oxcarbazepine 300 Mg 300 Mg ORAL Three Times A Day 02/06/13 Lamotrigine 100 Mg 100 Mg ORAL Daily@1800 02/06/13 Topiramate 100 Mg 100 Mg ORAL Twice A Day 02/06/13 Demeclocycline Hcl 150 Mg 300 Mg ORAL Twice Daily Before Meals 02/06 Lamotrigine 100 Mg 50 Mg ORAL Daily @ 0800 03/30/14 Magnesium Hydroxide 400 Mg/5 Ml 30 Ml ORAL Q3days 03/30/14 Aspirin 81 Mg 81 Mg ORAL Daily 07/19/14 Sennosides 8.6 Mg 2 Tab ORAL Daily 07/19/14 Levetiracetam 500 Mg 1,500 Mg ORAL Twice A Day 60 07/21/14 Lorazepam 2 Mg/1 Ml 2 Mg INTAMUSCULAR Three Times A Day as needed for Seizure Activity 04/10/15 Ibuprofen 200 Mg 400 Mg ORAL Bedtime 04/17/16 Escitalopram Oxalate 5 Mg 5 Mg ORAL Daily 09/09/16 Risperidone 0.25 Mg 0.25 Mg ORAL Daily 09/09/16 Topiramate 50 Mg 50 Mg ORAL Twice A Day 09/10/16 Ibuprofen 200 Mg 600 Mg ORAL Every 8HRS as needed for Headache 09/10 Magnesium Hydroxide 400 Mg/5 Ml 30 Ml ORAL Daily as needed for Constipation 09/10/16 Past Home Medications Medication Directions Ordered Status [...] Tablet, 0.25 Mg Oral Daily 04/10/15 Discontinued Oxycodone Hcl 5 Mg Tablet, 5 Mg Oral Every 6 Hours as needed for Pain Discontinued Social History Social History Problem Response Recorded Date/Time Onset Date Status Exposure to occupational hazards No 09/09/2016 8:20pm Query Response Start Date Stop Date Smoking Status Current every day smoker Hospital Discharge Instructions Patient's Instructions Instructions Instructions Continue home medications. Avoid tobacco use. Activity Instructions As tolerated Doctor's Appointment Follow up with PCP. Establish care with neurologist. Discharge Diet: Regular Discharge Plan of Care Discharge Plan of Care #1 Problem: Smoker Goal: Smoking cessation Instructions for meeting goal: Use nicotene patch to help stop smoking. Plan of Care Discharge Date 09/10/16 11:37am Disposition XFER [facility] BED Instructions/Education Provided How to Stop Smoking (GEN) Prescriptions See Medication Section Care Plan and Goals See Discharge Instructions Section Functional Status Query Response Date Recorded Level of Conscious Alert Disoriented / Confused September 10, 2016 9:30am Movement Moves extremities September 10, 2016 9:30am Allergies, Adverse Reactions, Alerts Allergen Type Severity Reaction Status Last Updated Codeine Allergy Unknown Active 09/09/16 Acetaminophen Allergy Unknown Active 09/09/16 Immunizations Name Given Type Status Date Influenza Vaccine Received if Current 08/19/15 Historical Historical Vital Signs Acute Vital Signs Vital Response Date/Time Temperature (Fahrenheit) 98.6 09/10/2016 8:18am Pulse 76 bpm 09/10/2016 8:18am Respirations 18 09/10/2016 8:18am Height 5 ft 4 in Weight 117 lb Body Mass Index 20.0 kg/m^2 Results Laboratory Results Test Name Result Units Flags Reference Collection Date/Time Result Date/ Time Comments White Blood Count 6.21 10^3uL 4.0-11.0 09/10/2016 5:50am 09/10/2016 6: 20am Red Blood Count 4.58 10^6uL 4.00-5.00 09/10/2016 5:50am 09/10/2016 6: 20am Hemoglobin 12.6 g/dL 12.0-15.5 09/10/2016 5:50am 09/10/2016 6:20am Hematocrit 38.30 % 35.00-45.00 09/10/2016 5:50am 09/10/2016 6:20am Mean Corpuscular Volume 84 FL 80-100 09/10/2016 5:50am 09/10/2016 6: 20am Mean Corpuscular Hemoglobin 27.5 PG 26.0-34.0 09/10/2016 5:50am 2015 6:20am Mean Corpuscular Hemoglobin Concent 32.9 g/dL 31.0-37.0 09/10/2016 5: 50am 09/10/2016 6:20am Red Cell Distribution Width 15.0 % 11.8-15.6 09/10/2016 5:50am 2015 6:20am Platelet Count 258 10^3uL 150-450 09/10/2016 5:50am 09/10/2016 6:20am Mean Platelet Volume 9.5 FL 6.0-9.5 09/10/2016 5:50am 09/10/2016 6: 20am Neutrophils (%) (Auto) 61 % 51-67 09/10/2016 5:50am 09/10/2016 6:20am Lymphocytes (%) (Auto) 26 % 20-46 09/10/2016 5:50am 09/10/2016 6:20am Monocytes (%) (Auto) 12 % H 3-11 09/10/2016 5:50am 09/10/2016 6:20am Eosinophils (%) (Auto) 1 % 0-4 09/10/2016 5:50am 09/10/2016 6:20am Basophils (%) (Auto) 0 % 0-2 09/10/2016 5:50am 09/10/2016 6:20am Neutrophils # (Auto) 3.8 X10^3 09/10/2016 5:50am 09/10/2016 6:20am Lymphocytes # (Auto) 1.6 X10^3 09/10/2016 5:50am 09/10/2016 6:20am Monocytes # (Auto) 0.8 X10^3 09/10/2016 5:50am 09/10/2016 6:20am Eosinophils # (Auto) 0.1 10^3uL 09/10/2016 5:50am 09/10/2016 6:20am Basophils # (Auto) 0.0 10^3uL 09/10/2016 5:50am 09/10/2016 6:20am Sodium Level 138 mmol/L # 135-150 09/10/2016 5:50am 09/10/2016 6:49am Potassium Level 4.5 mmol/L # 3.5-5.1 09/10/2016 5:50am 09/10/2016 6:49am Chloride Level 108 mmol/L 98-108 09/10/2016 5:50am 09/10/2016 6:49am Carbon Dioxide Level 21 mmol/L L 22-29 09/10/2016 5:50am 09/10/2016 6: 49am Anion Gap 13.1 MEQ/L 3-15 09/10/2016 5:50am 09/10/2016 6:49am Blood Urea Nitrogen 9 mg/dL 7-18 09/10/2016 5:50am 09/10/2016 6:49am Creatinine 0.87 mg/dL 0.6-1.2 09/10/2016 5:50am 09/10/2016 6:49am BUN/Creatinine Ratio 10 10-20 09/10/2016 5:50am 09/10/2016 6:49am Estimat Glomerular Filtration Rate 81.5 09/10/2016 5:50am 2015 6:49am Estimated GFR (Non- 67.4 09/10/2016 5:50am 2015 6:49am Glucose Level 87 mg/dL # 70-110 09/10/2016 5:50am 09/10/2016 6:49am Calculated Osmolality 264 mosm/L L 280-300 09/10/2016 5:50am 09/10/2016 6:49am Calcium Level 8.7 mg/dL L 8.8-10.8 09/10/2016 5:50am 09/10/2016 6:49am Calcium/Ionized Calcium Ratio 3.8 mg/dL 3.8-4.6 09/10/2016 5:50am 09/10 6:49am Phosphorus Level 4.0 mg/dL 2.4-4.9 09/10/2016 5:50am 09/10/2016 6:49am Magnesium Level 2.2 mg/dL 1.6-2.3 09/10/2016 5:50am 09/10/2016 6:49am Total Bilirubin 0.4 mg/dL 0.1-1.0 09/10/2016 5:50am 09/10/2016 6:49am Alkaline Phosphatase 110 U/L 38-126 09/10/2016 5:50am 09/10/2016 6: 49am Aspartate Amino Transf (AST/SGOT) 25 U/L 15-37 09/10/2016 5:50am 2015 6:49am Alanine Aminotransferase (ALT/SGPT) 34 U/L 30-65 09/10/2016 5:50am 04/2016 6:49am Total Protein 7.2 g/dL 6.4-8.5 09/10/2016 5:50am 09/10/2016 6:49am Albumin 3.5 g/dL # 3.4-5.0 09/10/2016 5:50am 09/10/2016 6:49am Albumin/Globulin Ratio 0.945 L 1.1-1.8 09/10/2016 5:50am 09/10/2016 6: 49am Thyroid Stimulating Hormone (TSH) 1.76 uIU/mL 0.46-4.68 09/09/2016 9: 17pm 09/10/2016 1:08am Lactic Acid Level 0.9 mmol/L 0.7-2.1 09/09/2016 9:17pm 09/09/2016 9: 54pm Salicylates Level < 1.0 mg/dL L 2.0-20.0 09/09/2016 9:17pm 09/09/2016 10 :34pm Acetaminophen Level < 10.0 mcg/mL L 10.0-30.0 09/09/2016 9:17pm 2015 10:34pm Procedures No known history of procedures. Encounters Encounter Location Arrival/Admit Date Discharge/Depart Date Attending Provider Discharged Inpatient (obs) [facility] 09/09/16 7:45pm 09/10/16 11: 37am LAURIE COFFMAN MD Registered Clinic [facility] 09/09/16 5:21pm SONIYA CABA MD Recent Diagnosis Seizure disorder Maninder's paralysis
--- OUTSIDE RECORDS SUMMARY | 2017-01-08 17:23 | XMS REPORT | Continuity of Care Document ---
Author Author [facility] Organization [facility] Address Unknown Phone Unavailable Care Team Providers Care Heat Treat Operator Name Role Phone David Camargo MD PP [phone] Insurance Providers Payer Name Policy Number Subscriber Name Relationship Medicare A And B [id number] Ana Robertson 18 Self / Same As Patient Other1 [id number] Ana Robertson 18 Self / Same As Patient Advance Directives Directive Response Recorded Date Advanced Directives No 11/04/13 4:27pm Problems Medical Problem Onset Date Seizure disorder 11/04/13 Allergies, Adverse Reactions, Alerts Allergen Type Severity Reaction Last Updated Codeine Allergy 02/06/13 acetaminophen Allergy 02/06/13 Medications Medication Dose Units Route Sig Qty Days Demeclocycline Hcl (Declomycin) 150 Mg PO BID Topiramate (Topamax) 100 Mg PO BID Lamotrigine (LaMICtal) 100 Mg PO BID Oxcarbazepine (Trileptal) 300 Mg PO TID Levetiracetam (Keppra Tab) 1250 Mg PO BID Immunizations Name Given Type Date Influenza Vaccine Received if Current 08/19/13 H Response Recorded Date/Time Status not known Unknown Results Test Date Result Interp. Ref. Range Alanine Aminotransferase (ALT/SGPT) February 06, 2013 10:40pm 48 U/L N 30-65 Albumin February 06, 2013 10:40pm 3.3 G/DL L 3.4-5.0 Albumin/Globulin Ratio February 06, 2013 10:40pm 2.8 H 1.1-1.8 Alkaline Phosphatase February 06, 2013 10:40pm 162 U/L H 38-126 Aspartate Amino Transf (AST/SGOT) February 06, 2013 10:40pm 37 U/L N 15-37 BUN/Creatinine Ratio June 06, 2013 11:47am 14 N 10-20 Band Neutrophils % February 06, 2013 10:40pm 0 % N 0-6 Basophils % February 06, 2013 10:40pm 0 % N 0-1 Blood Urea Nitrogen June 06, 2013 11:47am 19 MG/DL H 7-18 Calcium Level June 06, 2013 11:47am 8.8 MG/DL N 8.8-10.8 Calculated Osmolality February 06, 2013 10:40pm 264 MOSM/L L 280-300 Carbon Dioxide Level June 06, 2013 11:47am 21 MMOL/L L 22-29 Chloride Level June 06, 2013 11:47am 107 MMOL/L N 98-108 Creatinine June 06, 2013 11:47am 1.40 mg/dL H 0.6-1.2 Differential Total Cells Counted February 06, 2013 10:40pm 100 - Eosinophils % February 06, 2013 10:40pm 1 % N 0-5 Glucose Level June 06, 2013 11:47am 88 MG/DL N 70-110 Hematocrit February 06, 2013 10:40pm 45.50 % H 35.00-45.00 Hemoglobin February 06, 2013 10:40pm 15.3 g /dL N 12.0-15.5 Lamotrigine (Lamictal) Level February 06, 2013 11:31pm 4.0 mcg/mL - Levetiracetam (Keppra) Level February 06, 2013 11:31pm 41.0 mcg/mL - Lymphocytes % February 06, 2013 10:40pm 38 % H 16-34 Magnesium Level February 06, 2013 10:40pm 2.1 MG/DL N 1.6-2.3 Mean Corpuscular Hemoglobin February 06, 2013 10:40pm 31.4 PG N 26.0-34.0 Mean Corpuscular Hemoglobin Concent February 06, 2013 10:40pm 33.6 g/dL N 31.0-37.0 Mean Corpuscular Volume February 06, 2013 10:40pm 93 FL N 80-100 Mean Platelet Volume February 06, 2013 10:40pm 10.4 FL H 6.0-9.5 Monocytes % February 06, 2013 10:40pm 9 % N 0-10 Oxcarbazepine Level February 06, 2013 11:31pm 20 mcg/mL - Platelet Count February 06, 2013 10:40pm 226 10^3/uL N 150-450 Potassium Level June 06, 2013 11:47am 4.0 MMOL/L N 3.5-5.1 Red Blood Count February 06, 2013 10:40pm 4.87 10^6/uL N 4.00-5.00 Red Cell Distribution Width February 06, 2013 10:40pm 12.6 % N 11.8-15.6 Segmented Neutrophils % February 06, 2013 10:40pm 52 % N 50-73 Sodium Level June 06, 2013 11:47am 135 MMOL/L N 135-150 Total Bilirubin February 06, 2013 10:40pm 0.4 MG/DL N 0.1-1.0 Total Protein February 06, 2013 10:40pm 6.1 G/DL L 6.4-8.5 White Blood Count February 06, 2013 10:40pm 7.1 10^3/uL N 4.0-11.0 Estimat Glomerular Filtration Rate June 06, 2013 11:47am 47.6 - Blood Morphology Comment February 06, 2013 10:40pm Normal - Estimated GFR (Non- June 06, 2013 11:47am 39.3 - Calcium/Ionized Calcium Ratio February 06, 2013 10:40pm 4.00 mg/dL - Procedures Procedure Code Date COMPREHEN METABOLIC PANEL 61665 02/06/13 ASSAY OF MAGNESIUM 44053 02/06/13 BL SMEAR W/DIFF WBC COUNT 30677 02/06/13 COMPLETE CBC AUTOMATED 65597 02/06/13 ROUTINE VENIPUNCTURE 09755 02/06/13 QUANTITATIVE ASSAY DRUG 51219 02/06/13 QUANTITATIVE ASSAY DRUG 26234 02/06/13 QUANTITATIVE ASSAY DRUG 25767 02/06/13 EMERGENCY DEPT VISIT 93616 02/06/13 US EXAM BREAST(S) 11063 04/15/13 COMPUTER DX MAMMOGRAM ADD-ON 80618 G0206 04/15/13 [place] [address] 05/02/13 ROUTINE VENIPUNCTURE 93402 05/02/13 [place] [address] 06/06/13 ROUTINE VENIPUNCTURE 38410 06/06/13 US EXAM BREAST(S) 70944 09/10/13 COMPUTER DX MAMMOGRAM ADD-ON 33585 G0206 09/10/13 Encounters Encounter Location Date/Time Registered Emergency Room [facility] 11/04/13 4:28pm Departed Emergency Room [facility] 02/06/13 10:55pm
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
[2017-01-08] MEDS ORDERED: ASPI-914 PO (17:43)
[2017-01-08] MEDS ORDERED: LAMO100T PO ×2 (17:43→17:59)
[2017-01-08] MEDS ORDERED: IBUP-1724 PO (17:43)
[2017-01-08] MEDS ORDERED: OXCA300T18 PO (17:59)
[2017-01-08] MEDS ORDERED: TOPI100T43 PO (17:59)
[2017-01-08] MEDS ORDERED: ESCI5TAB8 PO (17:59)
[2017-01-08] MEDS ORDERED: TOPI25TA64 PO (17:59)
[2017-01-08] MEDS ORDERED: LEVE500T9 PO (17:59)
[2017-01-08] MEDS ORDERED: MAGN400O4 PO (17:59)
[2017-01-08] MEDS ORDERED: IBUP200C62 PO (17:59)
[2017-01-08] MEDS ORDERED: DEME150T2 PO (17:59)
[2017-01-08] MEDS ORDERED: RISP0.252 PO (17:59)
[2017-01-08] MEDS ORDERED: LORA2DIS6 IM (17:59)
[2017-01-08] MEDS ORDERED: SENN-156 PO (17:59)
--- OUTSIDE RECORDS SUMMARY | 2017-01-08 18:05 | XMS REPORT | Continuity of Care Document ---
Author Author [facility] Organization [facility] Address Unknown Phone Unavailable Care Team Providers Care Food Porter Name Role Phone David Camargo MD Primary Care Physician [phone] Insurance Providers Payer Name Policy Number Subscriber Name Relationship Medicare A And B [id number] Ana Draper 18 Self / Same As Patient Medicare Other [id number] Ana Draper 18 Self / Same As [...] Reference Range:2.5 - 15.0 Test Performed by: [address] [address] Intensive Care Medicine Specialist: Fede Miller III, M.D. Levetiracetam (Keppra) Level July 19, 2014 2:27am 41.4 mcg/mL () Reference Range:12.0 - 46.0 Test Performed by: [address] [address] Intensive Care Medicine Specialist: Fede Miller III, M.D. Lymphocytes # (Auto) [...] 19 mcg/mL 3 - 35 Test Performed by:[address] [address] Intensive Care Medicine Specialist: Fede Miller III, M.D. Phosphorus Level July [...] Negative Urine collection method Catheter Urine Specific [place] July 19, 2014 2:18am 1.015 1.005-1.030 Urine [...] Encounters Encounter Location Date/Time Departed Emergency Room [facility] 04/10/15 4:02pm Registered Clinic [facility] 04/10/15 2:00pm
--- OUTSIDE RECORDS SUMMARY | 2017-01-08 18:05 | XMS REPORT | Continuity of Care Document ---
Author Author [facility] Address Unknown Phone Unavailable Allergies Active Description Code Type Severity Reaction Onset Reported/Identified Relationship to Patient Clinical Status Yes acetaminophen [id number] Drug Allergy Unknown N/A 09/09/2016 Yes codeine [id number] Drug Allergy Unknown N/A 09/09/2016 Medications Problems [...] Status Pt. Type Provider Facility Loc./Unit Complaint [id number] 09/09/2016 19:45:00 2015 11:37:00 DIS Inpatient AUGUSTUS VELAZCO, [facility] MED/SURG POST DICTAL PARALYSIS [id number] 04/17/2016 18:57:00 2015 21:38:00 DIS Emergency ROJAS DO [facility] ED [id number] 08/03/2015 14:30:00 2014 23:59:59 CLS Outpatient Raman VELAZCO, [facility] LAB [id number] 05/28/2015 08:58:00 2014 23:59:59 CLS Outpatient Raman VELAZCO, [facility] [id number] 05/21/2015 10:44:00 2014 23:59:59 CLS Outpatient Raman VELAZCO, [facility] [id number] 05/14/2015 10:00:00 2014 23:59:59 CLS Preadmit Raman VELAZCO, [facility] [id number] 05/06/2015 11:24:00 2014 23:59:59 CLS Outpatient Raman VELAZCO, [facility] RAD [id number] 04/10/2015 20:56:00 2014 14:32:00 DIS Inpatient SHIRAZ VELAZCO, [facility] MED/SURG [id number] 04/10/2015 14:00:00 2014 23:59:59 CLS Outpatient ROSALES VELAZCO, [facility] EMS [id number] 02/18/2015 10:09:00 2014 23:59:59 CLS Outpatient LINDA VELAZCO, [facility] [id number] 07/28/2014 05:52:00 2013 23:59:59 CLS Outpatient Raman VELAZCO, [facility] LAB [id number] 07/19/2014 04:45:00 2013 14:30:00 DIS Inpatient SHIRAZ VELAZCO, [facility] MED/SURG [id number] 07/19/2014 01:50:00 2013 23:59:59 CLS Outpatient JOEL VELAZCO, [facility] EMS [id number] 05/22/2014 06:29:00 2013 23:59:59 CLS Outpatient Raman VELAZCO, [facility] LAB [id number] 04/26/2014 19:53:00 2013 23:59:59 CLS Outpatient [facility] EMS [id number] 04/26/2014 19:53:00 2013 21:31:00 DIS Emergency [facility] ED [id number] 03/30/2014 21:30:00 2013 15:00:00 DIS Inpatient JESUS VELAZCO, [facility] MED/SURG [id number] 03/30/2014 19:15:00 2013 23:59:59 [facility] [id number] 12/23/2013 10:59:00 2013 23:59:59 CLS Outpatient Raman VELAZCO, [facility] LAB [id number] 11/04/2013 16:28:00 2012 17:58:00 DIS Emergency TOBY VELAZCO, [facility] ED [id number] 09/10/2013 09:52:00 2012 23:59:59 CLS Outpatient Raman VELAZCO, [facility] RAD [id number] 06/06/2013 11:42:00 2012 23:59:59 CLS Outpatient Raman VELAZCO, [facility] LAB [id number] 01/05/2017 13:16:00 ACT Outpatient Raman VELAZCO, [facility] LAB DROP [facility] [id number] 09/09/2016 17:21:00 ACT Outpatient ROSALES VELAZCO, [facility] EMS TRANSPORT TO THE HOSPITAL [id number] 04/17/2016 18:42:00 ACT Outpatient ROSALES VELAZCO, [facility] EMS [id number] 09/21/2014 13:54:00 Document Registration [id number] 05/02/2013 11:06:00 Document Registration [id number] 04/15/2013 09:50:00 Document Registration [id number] 02/06/2013 22:55:00 Document Registration [id number] 02/06/2013 22:49:00 Document Registration [id number] 01/10/2013 09:52:00 Document Registration [id number] 12/24/2012 09:40:00 Document Registration [id number] 10/16/2012 11:25:00 Document Registration [id number] 07/31/2012 10:00:00 Document Registration [id number] 05/16/2012 09:46:00 Document Registration
--- OUTSIDE RECORDS SUMMARY | 2017-01-08 18:06 | XMS REPORT | Continuity of Care Document ---
Author Author [facility] Organization [facility] Address Unknown Phone Unavailable Care Team Providers Care Catheter Finisher And Inspector Name Role Phone David Camargo MD Primary Care Physician [phone] Insurance Providers Payer Name Policy Number Subscriber Name Relationship Medicare A And B [id number] Ana Draper 18 Self / Same As Patient Medicare Other [id number] Ana Draper 18 Self / Same As [...] BASIC METABOLIC PANEL* Referrals David Camargo MD ([facility]) Within 1 week Address: [address] [place] [id number] Aleks Sherwood MD (NEUROLOGY) Within 4-6 weeks David Camargo MD ([facility]) 07/28/14 Address: [address] [place] [phone] Functional Status No functional status results. [...] Reference Range:2.5 - 15.0 Test Performed by: [place] [address] Clinical Informatics Director: Fede Miller III, M.D. Levetiracetam (Keppra) Level July 19, 2014 2:27am 41.4 mcg/mL () Reference Range:12.0 - 46.0 Test Performed by: [place] [address] Clinical Informatics Director: Fede Miller III, M.D. Lymphocytes # (Auto) [...] 19 mcg/mL 3 - 35 Test Performed by:[place] [id number] Clinical Informatics Director: Fede Miller III, M.D. Phosphorus Level July [...] Negative Urine collection method Catheter Urine Specific [place] July 19, 2014 2:18am 1.015 1.005-1.030 Urine [...] procedures. Encounters Encounter Location Date/Time Discharged Inpatient [facility] 04/10/15 8:56pm Registered Clinic [facility] 04/10/15 2:00pm Recent Diagnosis Maninder's paralysis
[2017-01-08 18:12] LABS: BASOPHILS % (AUTO) 0.3 % (0-2); EOSINOPHILS % (AUTO) 0.6 % (0-4); HCT - HEMATOCRIT 40.9 % (36-46); HGB - HEMOGLOBIN 13.3 GM/DL (12-16); IMMATURE GRANULOCYTE # (AUTO) 0.01 T/MM3 (0.00-0.03); IMMATURE GRANULOCYTE % (AUTO) 0.1 % (0.0-0.5); LYMPHOCYTES # (AUTO) 1.8 T/MM3 (1-4.8); MEAN CORPUSCULAR HGB 27.8 UUG (26-34); MEAN CORPUSCULAR HGB CONC(MCHC 32.5 GM/DL (31-37); MEAN CORPUSCULAR VOLUME 85.6 UM3 (80-100); MEAN PLATELET VOLUME 9.4 UM3 (9.4-12.4); MONOCYTES # (AUTO) 0.6 T/MM3 (0-0.8); MONOCYTES % (AUTO) 8.9 % (0-9.0); NEUTROPHILS #(AUTO)-ABSOLUTE 4.3 T/MM3 (1.8-7.7); NEUTROPHILS % (AUTO) 64.1 % (33-66); RED BLOOD COUNT 4.78 M/MM3 (4.00-5.20); WBC - WHITE BLOOD COUNT 6.7 T/MM3 (4.5-11.0)
[2017-01-08 18:20] LABS: BLOOD, URINE 1+ (NEGATIVE); COLOR,URINE YELLOW (YELLOW); LEUKOCYTE ESTERASE ,URINE 2+ (NEGATIVE); NITRITE,URINE POSITIVE (NEGATIVE); UROBILINOGEN,URINE 0.2 EU/DL (NORMAL)
[2017-01-08 18:38] LABS: AMPHETAMINE SCREEN,URINE NEGATIVE; BARBITURATE SCREEN,URINE NEGATIVE; BENZODIAZEPINES SCREEN,URINE NEGATIVE; CANNABINOID SCREEN,URINE NEGATIVE; COCAINE SCREEN,URINE NEGATIVE; METHADONE SCREEN, URINE NEGATIVE; METHAMPHETAMINE SCREEN, URINE NEGATIVE; OPIATE SCREEN,URINE NEGATIVE; PHENCYCLIDINE SCREEN,URINE NEGATIVE; TRICYCLIC ANTIDEPRESSANT,URINE NEGATIVE
[2017-01-08 18:46] LABS: SQUAMOUS EPITHELIAL CELL,UR 0-5
[2017-01-08 18:47] LABS: BACTERIA,URINE 2+ (NEGATIVE); RBC,URINE 0-1 /HPF (0-3); WBC,URINE 30-50 /HPF (0-5)
[2017-01-08 19:17] LABS: ACETAMINOPHEN < 10 UG/ML (10-30); ALBUMIN 3.8 G/DL (3.5-5.0); ALBUMIN/GLOBULIN RATIO 1.1 RATIO (1.1-2.2); ALKALINE PHOSPHATASE 143 U/L (38-126); ALT (SGPT) 26 U/L (9-52); AST (SGOT) 21 U/L (14-36); BUN/CREATININE RATIO 16 RATIO (6-26); CALCIUM 9.4 MG/DL (8.4-10.2); CO2 - CARBON DIOXIDE 25 MEQ/L (22-30); CREATININE 0.9 MG/DL (0.7-1.2); ETHANOL <10 MG/DL (<10); GLOMERULAR FILTRATION RATE 65; GLUCOSE 106 MG/DL (65-110); SALICYLATE < 1.0 MG/DL (2-20); TOTAL PROTEIN 7.2 G/DL (6.3-8.2)
[2017-01-08 19:24] LABS: CHLORIDE 105 MEQ/L (98-107); POTASSIUM 4.9 MEQ/L (3.6-5); SODIUM 139 MEQ/L (134-144)
[2017-01-08 19:25] LABS: ANION GAP 9 MEQ/L (5-15)
[2017-01-08] MEDS ORDERED: CEPHALEXIN 500 MG CAPSULE PO ONE (19:45)
[2017-01-08 19:50] VITALS: BP 152/71; PULSE 77; RESP 16; TEMP 98.7; O2SAT 100
--- NOTE | 2017-01-08 20:00 | NUR ---
ADMISSION PT is a 56 year old female admitted to generations unit from [facility] through [facility] ED. Pt was transported to the unit by bed and accompanied by 2 [facility] staff and DPOA arrived with R staff to assist. Pt was admitted to room number 188 and needs x1 assist with transfers and ambulation and a regular diet, takes medications whole. Pt does have her own wheel chair which was used to bring in her inventory. Pt is oriented to person only and cooperative with assessment and questioning. Pt is dressed appropriate for conditions and when asked if we could give her a shower tonight she stated that she would rather have one in the morning. In speaking with the DPOA, the patient has to be redirected multiple times before she will complete a task (such as taking a shower) but will eventually comply. Pt has a scar on her forehead that she says was from 2 prior brain surgeries no other ramos visible on assessment. Pts valueables were went home with the DPOA and patient states her reason for being here as " to fix my behavior". Pts family was oriented to the unit and out visitation policies. Addendum: 01/08/17 at 3319 by KARYN MCLAUGHLIN RN Pt arrived on unit at 1945 today.
--- OUTSIDE RECORDS SUMMARY | 2017-01-08 20:24 | XMS REPORT | Continuity of Care Document ---
Author Author [facility] Address Unknown Phone Unavailable Allergies Active Description Code Type Severity Reaction Onset Reported/Identified Relationship to Patient Clinical Status Yes acetaminophen [id number] Drug Allergy Unknown N/A 09/09/2016 Yes codeine [id number] Drug Allergy Unknown N/A 09/09/2016 Medications Problems [...] UNSPEC W/O MENTION INTRACTABLE 07/21/2014 SHIRAZ VELAZCO, MOLYL Ang Ot 564.00 UNSPEC CONSTIPATION 07/21/2014 SHIRAZ [...] Status Pt. Type Provider Facility Loc./Unit Complaint [id number] 09/09/2016 19:45:00 2015 11:37:00 DIS Inpatient AUGUSTUS VELAZCO, [facility] MED/SURG POST DICTAL PARALYSIS [id number] 04/17/2016 18:57:00 2015 21:38:00 DIS Emergency ROJAS DO [facility] ED [id number] 08/03/2015 14:30:00 2014 23:59:59 CLS Outpatient Raman VELAZCO, [facility] LAB [id number] 05/28/2015 08:58:00 2014 23:59:59 CLS Outpatient Raman VELAZCO, [facility] [id number] 05/21/2015 10:44:00 2014 23:59:59 CLS Outpatient Raman VELAZCO, [facility] [id number] 05/14/2015 10:00:00 2014 23:59:59 CLS Preadmit Raman VELAZCO, [facility] [id number] 05/06/2015 11:24:00 2014 23:59:59 CLS Outpatient Raman VELAZCO, [facility] RAD [id number] 04/10/2015 20:56:00 2014 14:32:00 DIS Inpatient SHIRAZ VELAZCO, [facility] MED/SURG [id number] 04/10/2015 14:00:00 2014 23:59:59 CLS Outpatient ROSALES VELAZCO, [facility] [id number] 02/18/2015 10:09:00 2014 23:59:59 CLS Outpatient LINDA VELAZCO, [facility] [id number] 07/28/2014 05:52:00 2013 23:59:59 CLS Outpatient Raman VELAZCO, [facility] LAB [id number] 07/19/2014 04:45:00 2013 14:30:00 DIS Inpatient SHIRAZ VELAZCO, [facility] MED/SURG [id number] 07/19/2014 01:50:00 2013 23:59:59 CLS Outpatient JOEL VELAZCO, [facility] EMS [id number] 05/22/2014 06:29:00 2013 23:59:59 CLS Outpatient Raman VELAZCO, [facility] LAB [id number] 04/26/2014 19:53:00 2013 23:59:59 CLS Outpatient [facility] EMS [id number] 04/26/2014 19:53:00 2013 21:31:00 DIS Emergency [facility] ED [id number] 03/30/2014 21:30:00 2013 15:00:00 DIS Inpatient JESUS VELAZCO, [facility] MED/SURG [id number] 03/30/2014 19:15:00 2013 23:59:59 [facility] [id number] 12/23/2013 10:59:00 2013 23:59:59 CLS Outpatient Raman VELAZCO, [facility] LAB [id number] 11/04/2013 16:28:00 2012 17:58:00 DIS Emergency TOBY VELAZCO, [facility] ED [id number] 09/10/2013 09:52:00 2012 23:59:59 CLS Outpatient Raman VELAZCO, [facility] RAD [id number] 06/06/2013 11:42:00 2012 23:59:59 CLS Outpatient Raman VELAZCO, [facility] LAB [id number] 01/05/2017 13:16:00 ACT Outpatient Raman VELAZCO, [facility] LAB DROP OFF [facility] [id number] 09/09/2016 17:21:00 ACT Outpatient ROSALES VELAZCO, [facility] TRANSP[facility] TO THE [facility] [id number] 04/17/2016 18:42:00 ACT Outpatient ROSALES VELAZCO, [facility] [id number] 09/21/2014 13:54:00 Document Registration [id number] 05/02/2013 11:06:00 Document Registration [id number] 04/15/2013 09:50:00 Document Registration [id number] 02/06/2013 22:55:00 Document Registration [id number] 02/06/2013 22:49:00 Document Registration [id number] 01/10/2013 09:52:00 Document Registration [id number] 12/24/2012 09:40:00 Document Registration [id number] 10/16/2012 11:25:00 Document Registration [id number] 07/31/2012 10:00:00 Document Registration [id number] 05/16/2012 09:46:00 Document Registration
--- OUTSIDE RECORDS SUMMARY | 2017-01-08 20:25 | XMS REPORT | Continuity of Care Document ---
Author Author [facility] Organization [facility] Address Unknown Phone Unavailable Care Team Providers Care Rn Bariatric Name Role Phone David Camargo MD Primary Care Physician [phone] Insurance Providers Payer Name Policy Number Subscriber Name Relationship Medicare A And B [id number] Ana Draper 18 Self / Same As Patient Medicare Other [id number] Ana Draper 18 Self / Same As [...] Reference Range:2.5 - 15.0 Test Performed by: [address] [address] Supervisor Smoke Control: Fede Miller III, M.D. Levetiracetam (Keppra) Level July 19, 2014 2:27am 41.4 mcg/mL () Reference Range:12.0 - 46.0 Test Performed by: [address] [address] Supervisor Smoke Control: Fede Miller III, M.D. Lymphocytes # (Auto) [...] 19 mcg/mL 3 - 35 Test Performed by:[address] [address] Supervisor Smoke Control: Fede Miller III, M.D. Phosphorus Level July [...] Negative Urine collection method Catheter Urine Specific [place] July 19, 2014 2:18am 1.015 1.005-1.030 Urine [...] Encounters Encounter Location Date/Time Departed Emergency Room [facility] 04/10/15 4:02pm Registered Clinic [facility] 04/10/15 2:00pm
--- OUTSIDE RECORDS SUMMARY | 2017-01-08 20:25 | XMS REPORT | Continuity of Care Document ---
Author Author [facility] Organization [facility] Address Unknown Phone Unavailable Care Team Providers Care Binding Cementer French Cord Name Role Phone David Camargo MD Primary Care Physician [phone] Insurance Providers Payer Name Policy Number Subscriber Name Relationship Medicare A And B [id number] Ana Draper 18 Self / Same As Patient Medicare Other [id number] Ana Draper 18 Self / Same As [...] BASIC METABOLIC PANEL* Referrals David Camargo MD ([facility]) Within 1 week Address: [address] [place] [id number] Aleks Sherwood MD (NEUROLOGY) Within 4-6 weeks David Camargo MD ([facility]) 07/28/14 Address: [address] [place] [id number] Functional Status No functional status results. [...] Reference Range:2.5 - 15.0 Test Performed by: [place] [address] Data Scientist: Fede Miller III, M.D. Levetiracetam (Keppra) Level July 19, 2014 2:27am 41.4 mcg/mL () Reference Range:12.0 - 46.0 Test Performed by: [place] [address] Data Scientist: Fede Miller III, M.D. Lymphocytes # (Auto) [...] 19 mcg/mL 3 - 35 Test Performed by:[place] [id number] Data Scientist: Fede Miller III, M.D. Phosphorus Level July [...] Negative Urine collection method Catheter Urine Specific [place] July 19, 2014 2:18am 1.015 1.005-1.030 Urine [...] procedures. Encounters Encounter Location Date/Time Discharged Inpatient [facility] 04/10/15 8:56pm Registered Clinic [facility] 04/10/15 2:00pm Recent Diagnosis Maninder's paralysis
[2017-01-08] MEDS ORDERED: IBUPROFEN 200 MG TABLET PO PRN (22:00)
[2017-01-08] MEDS ORDERED: HALOPERIDOL 5 MG/ML INJECTION IM PRN (22:00)
[2017-01-08] MEDS ORDERED: VICKS VAPORUB TOP PRN (22:00)
[2017-01-08] MEDS ORDERED: IBUPROFEN 200 MG TABLET PO SCH (22:00)
[2017-01-08] MEDS ORDERED: LORAZEPAM 2 MG/ML INJECTION IM PRN (22:00)
[2017-01-08] MEDS ORDERED: HALOPERIDOL 0.5 MG TABLET PO PRN (22:00)
[2017-01-08] MEDS ORDERED: PRN ORDERS MC (22:00)
[2017-01-08] MEDS ORDERED: RISPERIDONE 0.25 MG TABLET PO SCH (22:00)
[2017-01-08] MEDS ORDERED: LORAZEPAM 2 MG IM PRN (22:00)
[2017-01-08] MEDS ORDERED: LORAZEPAM 0.5 MG TABLET PO PRN (22:00)
[2017-01-08 22:53] VITALS: Ht 163.8 cm; Wt 51.0 kg
--- NOTE | 2017-01-08 23:49 | NUR ---
Status Pt was pleasant and cooperative with assessment, cares and medications. Pt stated that she prefers to sleep naked, i asked that she atleast wear a brief and a top or a hospital gown. She was asked upon admission if it would be ok if we gave her a shower and she declined stating that she likes her showers in the morning. Staff from [facility] stated that she sill take one but needs to be continually redirected to take her shower until she complies. Pt has been up once tonight to use the restroom and went straight back to bed. Pt was diagnosed with a UTI in the ED before coming to our unit and stated that they gave a one time dose of KEFLEX 500mg and it would need to be continued by the hospitalist covering the patient. Pt is a current smoker, smoking patch will also be requested in the morning from the hospitalist. Pt likes to have vapor rub on he nose constantly, she states that it helps her breathe. Pt is a full code unverified at this time but the DPOA expressed interest in talking about changing to a DNR, she stated she would call back in tomorrow. Pt has not had any behaviors so far this shift and is currently in bed sleeping with side rails up x2 and bed alarm activated.
--- NOTE | 2017-01-09 02:52 | NUR ---
Chart Check 24 hour chart check completed
[2017-01-09 05:52] LABS: LDL CHOLESTEROL,CALCULATED 196.4 (66-159); RISK FACTOR 4.2 RATIO (0-4.0); VLDL CHOLESTEROL 40.6 MG/DL (0-28)
--- NOTE | 2017-01-09 06:34 | NUR ---
Summary Pt slept 6.25 last night. She was incontinent of urine once and was changed and went back to sleep. Pt went to bed with a top and a brief and when checked for incontinence she had on only a brief and her hat. Pt had no behaviors or complaints of pain over night. No PRN medications were given and patient is currently in bed sleeping with side rails up x2 and bed alarm activated.
[2017-01-09 08:37] VITALS: BP 95/60; PULSE 72; RESP 16; TEMP 97.4; O2SAT 96
[2017-01-09 08:38] VITALS: PULSE 72
--- NOTE | 2017-01-09 09:45 | HPPDOC ---
ERIN MAHMOOD PROPERTY ANALYST 01/09/17 0837: HPI - Adult Date DATE: 01/09/17 TIME: 08:34 General Chief Complaint: Inappropriate behaviors History of Present Illness Angela Draper is a 56 y/o lady who was admitted to [facility] on 01/08/17 for inappropriate sexual behaviors towards other residents at [facility] for the last 4 weeks. She's also been verbally aggressive with staff and has been paranoid and delusional. She's been refusing bathing. She was medically cleared in [facility] ED on 01/08/17; she was dx with UTI and was started on Keflex. According to ED records, her mother reported to the ED PROPERTY ANALYST that Angela has been suffering with grief problems since the of her 2 years ago. Angela was seen in her room. She was awake, pleasant, and cooperative, but wanted to go back to sleep rather than eating breakfast following completion of interview/exam. She conversed well and seemed to be a fair historian, though some of her reported PMH was not accurate per her chart. ROS was entirely negative, though according to accompanying records she has constipation and frequent headaches. She states that she doesn't have seizures very often, but can't say for certain when her last one was. Past Medical History Past Medical History Patient's Medical History: (1) Nontraumatic intracerebral hemorrhage Permanent Comment: Ruptured right frontal cerebral aneurysm 2002 Last Edited By: Erin Mahmood on Jan 09, 2017 08:46 (2) Seizure disorder, grand mal (3) Idiopathic gout (4) Gastroparesis (5) CANELO (generalized anxiety disorder) (6) SIADH (syndrome of inappropriate ADH production) (7) Headache (8) Constipation Surgical History Patient's Surgical History: breast biopsy 1998 cerebral aneursym clipped 2002 left hip ORIF 2013 Current Medications Home Meds Reported Medications Lorazepam (Lorazepam) 2 Mg/1 Ml Syringe, 2 MG IM q5 min Y for PRN ORDERS IM as needed for seizure lasting longer than 5 min. May give every 5 min up to 6 mg or seizure stops. 01/08/17 Ibuprofen (Ibuprofen) 200 Mg Capsule, 3 CAP PO Q8H Y for PAIN, CAP 01/08/17 Oxcarbazepine (Oxcarbazepine) 300 Mg Tablet, 300 MG PO TID, TAB 01/08/17 Topiramate (Topiramate) 25 Mg Tablet, 50 MG PO BID 01/08/17 Topiramate (Topiramate) 100 Mg Tablet, 100 MG PO BID 01/08/17 Levetiracetam (Keppra) 500 Mg Tablet, 1500 MG PO BID 01/08/17 Demeclocycline HCl (Demeclocycline HCl) 150 Mg Tablet, 150 MG PO BID, TAB 01/08/17 Sennosides (Senna) 8.6 Mg Tablet, 2 TAB PO DAILY, TAB 01/08/17 Risperidone (Risperdal) 0.25 Mg Tablet, 0.25 MG PO QD 01/08/17 Magnesium Hydroxide (Milk of Magnesia) 400 Mg/5 Ml Oral.susp, 800 MG PO QOD 01/08/17 Escitalopram Oxalate (Escitalopram Oxalate) 5 Mg Tablet, 5 MG PO DAILY, TAB 01/08/17 Lamotrigine (Lamictal) 100 Mg Tablet, 1 TAB PO PM, TAB 01/08/17 Lamotrigine (Lamictal) 100 Mg Tablet, 50 MG PO DAILY, TAB 01/08/17 Aspirin *EC* (Low Dose Aspirin EC) 81 Mg Tablet.dr, 81 MG PO DAILY 01/08/17 Ibuprofen (Ibuprofen) 200 Mg Tablet, 400 MG PO QD, TAB 01/08/17 Allergies: Coded Allergies: acetaminophen (Verified Allergy, Unknown, 01/08/17) codeine (Verified Allergy, Unknown, 01/08/17) Family History Family History: Father of a cerebral anneurysm in his 70s. Mother is not healthy but she's unable to explain why. She has a sister who is healthy. Social History Smoking Status: Current every day smoker (pt reports 1/2 ppd since age 19 but H &P shows 2.5 ppd smoker) # of Packs/Tins per Day: 0.5 # of Years: 37 Substance Use Type: does not use Alcohol Intake: none, other ("recovering alcoholic") Housing: group home Current Occupational Status: disabled Advance Directives: Yes DPOA for Healthcare Only (Liudmila Echols) Social History Comments PCP - Lenin Review of Systems Constitutional: DENIES: appetite decrease, chills, dizziness, fever, weakness Eyes Vision: DENIES: vision changes ENMT Sinuses: NOT FOUND: congestion, rhinorrhea Mouth/Throat: DENIES: sore throat Cardiovascular DENIES: chest pain, dyspnea on exertion Vascular: DENIES: pedal edema Pulmonary Respiratory: DENIES: cough GI Upper Abdomen: DENIES: nausea, pain, vomiting Lower Abdomen: DENIES: constipation, melena General: DENIES: dysuria, frequency Musculoskeletal General: DENIES: pain Integumentary Skin: DENIES: rash Neurological General: seizures, DENIES: headache Psychiatric Psychiatric: see HPI Allergic/Immunological DENIES: frequent infections All Other Systems All Other Systems: Reviewed (remainder of 10-point ROS Neg.) Physical Exam General General Nourishment: well nourished, well developed, thin Vital Signs Vital Signs Date Time Temp Pulse Resp B/P Pulse Ox O2 Delivery O2 Flow Rate FiO2 01/08/17 19:55 98.7 77 16 152/71 100 Room Air Height (Feet): 5 Height (Inches): 4.50 Eyes Brief: FOUND: PERRL, NOT FOUND: scleral icterus ENMT Brief: FOUND: mucosa moist, NOT FOUND: lesions, normal dentition (teeth are discolored), pharnyx erythema Neck Brief: NOT FOUND: adenopathy, nuchal rigidity Respiratory Auscultation: FOUND: normal, NOT FOUND: rales, rhonchi, wheezes Cardiovascular Auscultation: FOUND: S1, S2, regular Peripheral Pulses: 2+: Dorasalis Pedis (L), Dorsalis Pedis (R), Posterior Tibial (L), Posterior Tibial (R), Radial (L), Radial (R) Edema: 0: Anasarca, Arm (L), Arm (R), Face, Leg (L), Leg (R) Abdomen Inspection: NOT FOUND: distention Palpation: FOUND: soft, NOT FOUND: McBurney's point tender, Cabezas's sign, involuntary guarding, rebound, tender, voluntary guarding Auscultation: FOUND: normo active Lymphatic (brief) Lymphatic Brief: NOT FOUND: adenopathy Musculoskeletal (brief) Musculoskeletal Brief: NOT FOUND: deformity, tenderness Integumentary (brief) Integumentary Brief: FOUND: dry, pink, warm Integumentary General: FOUND: dry, warm Color: FOUND: pink Neurologic (brief) Neurological Brief: FOUND: cranial 2-12 intact (grossly) Neurologic GCS Eye Opening: (4)Spontaneous GCS Verbal: (5)Oriented GCS Motor: (6)Obeys Commands RN Documented GCS Total: 15 Psychiatric (brief) FOUND: alert, attentive, normal affect, oriented Laboratory Laboratory Tests Test 01/08/17 17:50 01/08/17 17:56 01/08/17 18:41 01/09/17 04:39 Urine Collection Type Voided-not cc-midstr Urine Color Yellow Urine Turbidity Sl cloudy Urine pH 5.5 Urine Specific [place] 1.020 Urine Protein Negative Urine Glucose (UA) Negative Urine Ketones Trace Urine Blood 1+ Urine Nitrite Positive Urine Bilirubin Negative Urine Urobilinogen 0.2EU/DL Urine Leukocyte Esterase 2+ Urine RBC 0-1/HPF Urine WBC 30-50/HPF Urine Squamous Epithelial Cells 0-5 Urine Bacteria 2+ Urine Culture Indicated Cult reflexed &setup Urine Opiates Screen NegativeNG/ML Urine Oxycodone Screen NegativeNG/ML Urine Methadone Screen NegativeNG/ML Urine Propoxyphene Screen NegativeNG/ML Urine Barbiturates Screen NegativeNG/ML Urine Tricyclic Antidepressants NegativeNG/ML Urine Phencyclidine Screen NegativeNG/ML Urine Amphetamines Screen NegativeNG/ML Urine Methamphetamines Screen NegativeNG/ML Urine Benzodiazepines Screen NegativeNG/ML Urine Cocaine Screen NegativeNG/ML Urine Cannabinoids Screen NegativeNG/ML White Blood Count 6.7T/MM3 Red Blood Count 4.78M/MM3 Hemoglobin 13.3GM/DL Hematocrit 40.9% Mean Corpuscular Volume 85.6UM3 Mean Corpuscular Hemoglobin 27.8UUG Mean Corpuscular Hemoglobin Concent 32.5GM/DL RDW Standard Deviation 51.0FL Platelet Count 301T/MM3 Mean Platelet Volume 9.4UM3 Immature Granulocyte % (Auto) 0.1% Neutrophils (%) (Auto) 64.1% Lymphocytes (%) (Auto) 26.0% Monocytes (%) (Auto) 8.9% Eosinophils (%) (Auto) 0.6% Basophils (%) (Auto) 0.3% Absolute Immature Granulocyte (auto 0.01T/MM3 Absolute Neutrophils (auto) 4.3T/MM3 Absolute Lymphocytes (auto) 1.8T/MM3 Absolute Monocytes (auto) 0.6T/MM3 Absolute Eosinophils (auto) 0.0T/MM3 Absolute Basophils (auto) 0.0T/MM3 Turbidity < 20 Sodium Level 139MEQ/L Potassium Level 4.9MEQ/L Chloride Level 105MEQ/L Carbon Dioxide Level 25MEQ/L Anion Gap 9MEQ/L Blood Urea Nitrogen 14.0MG/DL Creatinine 0.9MG/DL Glomerular Filtration Rate Calc 65 BUN/Creatinine Ratio 16RATIO Glucose Level 106MG/DL Calculated Osmolality 269MOSM/KG Calcium Level 9.4MG/DL Total Bilirubin 0.50MG/DL Icterus Index < 2 Aspartate Amino Transf (AST/SGOT) 21U/L Alanine Aminotransferase (ALT/SGPT) 26U/L Alkaline Phosphatase 143U/L Total Protein 7.2G/DL Albumin 3.8G/DL Globulin 3.4G/DL Albumin/Globulin Ratio 1.1RATIO Thyroid Stimulating Hormone (TSH) 1.39MIU/L Chemistry Specimen Hemolysis < 15 Salicylates Level < 1.0MG/DL Acetaminophen Level < 10UG/ML Alcohol, Quantitative <10MG/DL Lab Scanned Report REFERENCE [id number] Hemoglobin A1c 5.4% Triglycerides Level 203MG/DL Cholesterol Level 310MG/DL LDL Cholesterol, Calculated 196.4 VLDL Cholesterol 40.6MG/DL HDL Cholesterol Direct 73MG/DL Cholesterol/HDL Ratio 4.2RATIO Assessment & Plan Problems: (1) UTI (urinary tract infection) Status: Acute Qualifiers: Urinary tract infection type: acute cystitis Hematuria presence: with hematuria Qualified Codes: N30.01 - Acute cystitis with hematuria (2) Seizure disorder, grand mal Status: Chronic (3) Nontraumatic intracerebral hemorrhage Status: Chronic (4) SIADH (syndrome of inappropriate ADH production) Status: Chronic (5) Gastroparesis Status: Chronic (6) CANELO (generalized anxiety disorder) Status: Chronic (7) Idiopathic gout Status: Chronic (8) Constipation Status: Chronic (9) Headache Status: Chronic (10) Dyslipidemia Status: Chronic Plan/Intensity of Service Agree with admission. B12 and folate still pending. Other labs stable with exception of lipid panel. UTI - continue Keflex; watch for C&S results. Dyslipidemia - start low dose simvastatin and monitor response. Hx grand mal seizure - cont antiepileptics Constipation - PRNs available SIADH - Na normal; continue demeclocycline Tobacco use - pt indicated she's not interested in quitting. Agree with providing tobacco cessation information. Nicotine patch ordered. Code Status Full Code, unverified Hospital Course Summary Disclaimer The hospital course summary below is not to be considered part of the above Progress Note. Hospital Course Summary 01/09/17 Agree with admission. B12 and folate still pending. Other labs stable with exception of lipid panel. UTI - continue Keflex; watch for C&S results. Dyslipidemia - start low dose simvastatin and monitor response. Hx grand mal seizure - cont antiepileptics Constipation - PRNs available SIADH - Na normal; continue demeclocycline Tobacco use - pt indicated she's not interested in quitting. Agree with providing tobacco cessation information. Nicotine patch ordered. RAYNE WRAY MD 01/09/171909: Past Medical History Current Medications Home Meds Reported Medications Lorazepam (Lorazepam) 2 Mg/1 Ml Syringe, 2 MG IM q5 min Y for PRN ORDERS IM as needed for seizure lasting longer than 5 min. May give every 5 min up to 6 mg or seizure stops. 01/08/17 Ibuprofen (Ibuprofen) 200 Mg Capsule, 3 CAP PO Q8H Y for PAIN, CAP 01/08/17 Oxcarbazepine (Oxcarbazepine) 300 Mg Tablet, 300 MG PO TID, TAB 01/08/17 Topiramate (Topiramate) 25 Mg Tablet, 50 MG PO BID 01/08/17 Topiramate (Topiramate) 100 Mg Tablet, 100 MG PO BID 01/08/17 Levetiracetam (Keppra) 500 Mg Tablet, 1500 MG PO BID 01/08/17 Demeclocycline HCl (Demeclocycline HCl) 150 Mg Tablet, 150 MG PO BID, TAB 01/08/17 Sennosides (Senna) 8.6 Mg Tablet, 2 TAB PO DAILY, TAB 01/08/17 Risperidone (Risperdal) 0.25 Mg Tablet, 0.25 MG PO QD 01/08/17 Magnesium Hydroxide (Milk of Magnesia) 400 Mg/5 Ml Oral.susp, 800 MG PO QOD 01/08/17 Escitalopram Oxalate (Escitalopram Oxalate) 5 Mg Tablet, 5 MG PO DAILY, TAB 01/08/17 Lamotrigine (Lamictal) 100 Mg Tablet, 1 TAB PO PM, TAB 01/08/17 Lamotrigine (Lamictal) 100 Mg Tablet, 50 MG PO DAILY, TAB 01/08/17 Aspirin *EC* (Low Dose Aspirin EC) 81 Mg Tablet.dr, 81 MG PO DAILY 01/08/17 Ibuprofen (Ibuprofen) 200 Mg Tablet, 400 MG PO QD, TAB 01/08/17 Allergies: Coded Allergies: acetaminophen (Verified Allergy, Unknown, 01/08/17) codeine (Verified Allergy, Unknown, 01/08/17) Assessment & Plan Plan/Intensity of Service Have independently interviewed and examined pt. Chart reviewed. Case discussed with my PROPERTY ANALYST. Above care plan developed with my supervision; agree with above. Admitted to [facility] due to behavioral changes - sexually inappropriate to other residents. Having aggressive and paranoid behavior. Pt see while resting in bed. Denies specific medical concerns. Does not nasal congestion for which she uses Vicks with good success. No pain with breathing or congestion. No ab pain or nausea. Lungs: decreased, no distress CV: regular AB: soft nt/nd Plan: [facility] admission for inpatient treatment of pt's psychiatric issues. Continue Keflex for urinary coverage - check C/S. Continue chronic medications. Provide safe, supportive environment. Psychiatry to manage and adjust pt's psychoactive medications. Medically stable for [facility] floor activities. ERIN MAHMOOD APRN Jan 09, 2017 08:37 RAYNE WRAY MD Jan 09, 2017 19:10
[2017-01-09] MEDS: DEMECLOCYCLINE 150 MG TABLET PO SCH ×2 (10:17→21:17)
[2017-01-09] MEDS: MILK OF MAGNESIA 30 ML SUSP PO SCH (10:17)
[2017-01-09] MEDS: LEVETIRACETAM 500 MG TABLET PO SCH ×2 (10:18→21:18)
[2017-01-09] MEDS: ASPIRIN *EC* 81mg TABLET PO SCH (10:18)
[2017-01-09] MEDS: SENNOSIDES 8.6 MG TABLET PO SCH (10:18)
[2017-01-09] MEDS: OXCARBAZEPINE 300 MG TABLET PO SCH ×3 (10:19→21:17)
[2017-01-09] MEDS: ESCITALOPRAM 10 MG TABLET PO SCH (10:19)
[2017-01-09] MEDS: TOPIRAMATE 100 MG TABLET PO SCH ×2 (10:20→21:17)
[2017-01-09] MEDS: CEPHALEXIN 500 MG CAPSULE PO SCH ×2 (10:21→17:50)
[2017-01-09] MEDS: NICOTINE 14 MG PATCH TD SCH (10:21)
[2017-01-09] MEDS: LAMOTRIGINE 100 MG TABLET PO SCH ×2 (10:21→21:17)
--- NOTE | 2017-01-09 10:54 | NUR ---
WAITER/WAITRESS BAR--AM GROUP Pt. was in bed and not available for psychoeducational group facilitated by [facility].
--- NOTE | 2017-01-09 11:27 | NUR ---
SMOKING STATUS CURRENT SMOKER, SMOKES 1/2 PACK A DAY.
--- NOTE | 2017-01-09 12:38 | NUR ---
STATUS Pt is AO x 3. Pt speech is clear and appropriate, able to verbalize needs, Pt had a shower with assist this morning then she went back to bed, she refused to come out for breakfast and lunch, snacks were offered as well and Pt refused, Pt states she just wants to sleep. Pt took her medications with out any problems. This RN asked Patient if she would like to eat lunch in her room and Pt states " I don't care, i just want to sleep. " Pt also states " if I cant smoke then I don't want to eat or do anything. " Pt has a nicotine patch on her right shoulder. Pt has flat affect. Pt denies any needs or concerns at the moment.
[2017-01-09 13:20] VITALS: PULSE 72; RESP 16; O2SAT 96
--- NOTE | 2017-01-09 14:40 | NUR ---
KIRAN BECK SPOKE WITH PT MOTHER JILLIAN. CM EXPLAINED ROLE AND PROVIDED CONTACT INFORMATION. PT WILL RETURN TO [facility] POST STAY AT [facility]. CM CALLED FACILITY BUT WAS LEFT ON HOLD. CM WILL FOLLOW UP WITH FACILITY. JILLIAN IS AWARE TO CONTACT CM IF NEEDS ARISE.
--- NOTE | 2017-01-09 15:15 | NUR ---
SLUMS/ALCOHOL AUDIT Pt score 18 on slums, she was cooperative with questions. Pt score 1 on alcohol audit.
[2017-01-09 16:00] VITALS: BP 111/65; PULSE 73; RESP 18; TEMP 98; O2SAT 96
--- NOTE | 2017-01-09 16:50 | NUR ---
GAMING TABLE OPERATOR--PSH/ADVANCE DIRECTIVE [facility] made phone call to pt's mother/DPOA-HC (Liudmila Echols). Pt. was born in [place]. She has a high school diploma and one year of college level work. She does not have any children. The mother would like to make pt. a DNR. Dr. Castillo was consulted about DNR paperwork and he will determine whether or not pt. has capacity to make that decision herself. Pt. her first . Her second 2 years ago from Liver cancer. Pt. has been living at [facility] since 07/21/14. She does have a history of alcohol dependence and went through substance abuse treatment twice. She has been clean and sober for over 20 years. She does currently attend Bible study group at the facility. The family has been attempting to help pt. apply for medicaid for past year. The discharge plan is for pt. to return to facility when stable. [facility] reviewed contents of proposed [place] plan with pt's mother. She gave permission to sign her name in agreement on the form. She will not be able to come down to visit until Sunday. [facility] met with pt. to gather information for psychosocial history (PSH). Pt. was alert, Ox2 with pleasant mood. She has stayed in bed all day and refused to eat. She has only had a few sips of water. She reports that since she cannot smoke, she doesn't want to eat. She says she gets nauseated easily and throws up often. She was advised that it is important for both her mental and physical health to eat and drink adequate liquids. Pt. did accept a chocolate mighty shake from this and was observed drinking it. Reviewed proposed goals on [place] plan and explained expectations for pt. while she is on unit. Addendum: 01/09/17 at 1708 by ANDRES ORDOÑEZ Amended: Links added.
--- NOTE | 2017-01-09 18:03 | NUR ---
summary Pt is AO x 2. Pt has been cooperative with cares and assessment, compliant with medications. Pt denied pain this shift. No aggressive behaviors noted, no hallucinations noted, no sexually inappropriate behaviors noted. Pt took a shower this morning with assistance of staff. Pt refused to come out for breakfast and lunch. She states she just wants to sleep and was upset because she is not allow to smoke. Pt states "I'm not eating because I cant' smoke. " Pt has nicotine patch on her right shoulder. Pt has been in her room most of the day until dinner time, she came out for dinner ate 100 % she also had a mighty shake before dinner. Pt speech is clear and appropriate, she is able to verbalize needs. Has been using call light appropriately. Pt was incontinent of urine once today. Pt has a history of gran mal seizure, side rails covers/protectors were put on her bed side rails. Pt will ask often when is she going to go home throughout the day. Pt slept 4 hr this shift. Pt denies needs or concerns at the moment.
[2017-01-09 19:47] VITALS: BP 126/70; PULSE 79; RESP 14; TEMP 97.2; O2SAT 95
--- NOTE | 2017-01-09 19:49 | GENHPPDOC ---
[facility] 01/09/17 Time of Service: 14:45 Start Time: 14:45 Stop Time: 15:00 >50% of this visit spent in counseling/coordination care. Chief Complaint: Agitation,refusal to eat. History of Present Illness Patient is a 56-year-old, female, who has history of brain aneurysm and reportedly had 2 surgeries about 20 years ago and has had seizures since after the surgeries. She presents from [facility] for increased agitation and behavioral disturbance. Patient presented through the ER patient where she was medically cleared but was found to have UTI and was started on Keflex. She was seen today to be alert and oriented to person and place but not to the month or year. She reports that she is in the hospital because of she was getting "too friendly with men" at the [facility] which she attributes to missing her . According to patient the about 4-5 years ago but reports shows he may have just about 2 years ago. Patient also identifies the [facility] not letting her smoke as another stressor. She often gets about 4 smoking breaks at the [facility] but would like to smoke whenever she wants.patient had a slums call off and MOCA of . Patient reports increased depressed mood in the last month and identifies decreased appetite with loss of about 10 pounds also in the last month. There is associated decreased concentration, and anhedonia. She denies morbid thoughts, suicide or intent or plans to hurt herself or some other person. She also reports past history of depression after the of her father many years ago. She denies history of auditory or visual hallucination and denies any form of delusion. She denies panic attack or history suggestive of generalized anxiety disorder. 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 Past psychiatric history: Denies any suicide attempts in the past and unable to recall any past psych hospitalization. Family history: Father had history of brain aneurysm and he also had depression. 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 She denies any history of alcohol or illicit drug use recently. Denies any problem with the police. Depression: irritable, change in appetite, social withdrawl, poor concentration Dementia: memory impairment, poor executive function. Past Medical History Past Medical History Patient's Medical History: (1) Nontraumatic intracerebral hemorrhage Permanent Comment: Ruptured right frontal cerebral aneurysm 2002 Last Edited By: Sarah Victoria on Jan 09, 2017 08:46 (2) Seizure disorder, grand mal (3) Idiopathic gout (4) Gastroparesis (5) CANELO (generalized anxiety disorder) (6) SIADH (syndrome of inappropriate ADH production) (7) Headache (8) Constipation Surgical History Patient's Surgical History: breast biopsy 1997 cerebral aneursym clipped 2002 left hip ORIF 2013 Current Medications Home Meds Reported Medications Lorazepam (Lorazepam) 2 Mg/1 Ml Syringe, 2 MG IM q5 min Y for PRN ORDERS IM as needed for seizure lasting longer than 5 min. May give every 5 min up to 6 mg or seizure stops. 01/08/17 Ibuprofen (Ibuprofen) 200 Mg Capsule, 3 CAP PO Q8H Y for PAIN, CAP 01/08/17 Oxcarbazepine (Oxcarbazepine) 300 Mg Tablet, 300 MG PO TID, TAB 01/08/17 Topiramate (Topiramate) 25 Mg Tablet, 50 MG PO BID 01/08/17 Topiramate (Topiramate) 100 Mg Tablet, 100 MG PO BID 01/08/17 Levetiracetam (Keppra) 500 Mg Tablet, 1500 MG PO BID 01/08/17 Demeclocycline HCl (Demeclocycline HCl) 150 Mg Tablet, 150 MG PO BID, TAB 01/08/17 Sennosides (Senna) 8.6 Mg Tablet, 2 TAB PO DAILY, TAB 01/08/17 Risperidone (Risperdal) 0.25 Mg Tablet, 0.25 MG PO QD 01/08/17 Magnesium Hydroxide (Milk of Magnesia) 400 Mg/5 Ml Oral.susp, 800 MG PO QOD 01/08/17 Escitalopram Oxalate (Escitalopram Oxalate) 5 Mg Tablet, 5 MG PO DAILY, TAB 01/08/17 Lamotrigine (Lamictal) 100 Mg Tablet, 1 TAB PO PM, TAB 01/08/17 Lamotrigine (Lamictal) 100 Mg Tablet, 50 MG PO DAILY, TAB 01/08/17 Aspirin *EC* (Low Dose Aspirin EC) 81 Mg Tablet.dr, 81 MG PO DAILY 01/08/17 Ibuprofen (Ibuprofen) 200 Mg Tablet, 400 MG PO QD, TAB 01/08/17 Allergies: Coded Allergies: acetaminophen (Verified Allergy, Unknown, 01/08/17) codeine (Verified Allergy, Unknown, 01/08/17) Family History Family History: Father of a cerebral anneurysm in his 70s. Mother is not healthy but she's unable to explain why. She has a sister who is healthy. Vaccines Pneumovax 08/15/2016 Social History Smoking Status: Current every day smoker (pt reports 1/2 ppd since age 19 but H &P shows 2.5 ppd smoker) # of Packs/Tins per Day: 0.5 # of Years: 37 Substance Use Type: does not use Alcohol Intake: none, other ("recovering alcoholic") Housing: [facility] Current Occupational Status: disabled Advance Directives: Yes DPOA for Healthcare Only (Liudmila Echols) Review of Systems Constitutional: REPORTS: appetite decrease, weight loss Eyes General: DENIES: erythema, watering Lids/Accessories: DENIES: erythema Vision: DENIES: blurring, glare ENMT Ears: DENIES: foreign body Hearing: DENIES: hearing loss Sinuses: NOT FOUND: rhinorrhea Nose: NOT FOUND: foreign body Mouth/Throat: DENIES: change in taste, masses ENMT Teeth: DENIES: bruxism Cardiovascular DENIES: chest pain, dyspnea on exertion Rhythm/Rate: DENIES: palpitations Vascular: DENIES: atrophy, pallor of an extremity, pedal edema Pulmonary Respiratory: DENIES: hyperventilation, tachypnea GI Upper Abdomen: DENIES: heartburn/indigestion, hematemesis Lower Abdomen: DENIES: diarrhea General: burning, DENIES: frequency, urgency Musculoskeletal General: DENIES: joint pain, joint swelling Integumentary Hair: DENIES: change in distribution Nails: DENIES: striae Neurological General: headache, DENIES: ataxia, blackouts, tingling Psychiatric Psychiatric: depression, irritability, memory impairment, DENIES: suicidal ideation/attempt Allergic/Immunological DENIES: frequent infections [facility] Exam Vitals Vital Signs Date Time Temp Pulse Resp B/P Pulse Ox O2 Delivery O2 Flow Rate FiO2 01/09/17 16:00 98.0 73 18 111/65 96 Room Air HEENT: Atraumatic and Pupils reactive to light. CVS: S1 and S 2 hear and no murmur. Resp: Clear to auscultation. Musculoskeletal: No pain. Neurological: Cranial nerves grossly intact. Height (Feet): 5 Height (Inches): 4.50 Mental Status Exam Muscle Strength/Tone: Normal Dressing: Casual Grooming: Good Attitude: Argumentative (Has been refusing meal beacuse she wants to smoke) Motor Activity: Normal Eye Contact: Good Speech: Normal Volume: Normal Rhythm: Appropriate Rhythm Sensory: Alert Orientation: Oriented to person, Oriented to place Mood: Depressed Affect: Restricted Thought Organization: Organized Associations: Intact Abstract Reasoning: Impaired, concrete Computation: Poor Computation Thought Content: Normal Attention Span/Concentration: Short Span Language: Naming Intact Fund of Knowledge: Poor fund of knowledge Memory: Poor-immediate, Poor-recent Suicidal Ideation: None Homicidal Ideation: None Insight: Fair Judgment: Poor Impulse Control: Poor Laboratory Tests Test 01/09/17 04:39 Hemoglobin A1c 5.4% Triglycerides Level 203MG/DL Cholesterol Level 310MG/DL LDL Cholesterol, Calculated 196.4 VLDL Cholesterol 40.6MG/DL HDL Cholesterol Direct 73MG/DL Cholesterol/HDL Ratio 4.2RATIO Vitamin B12 Level Pending Folate Pending Assessment and Plan (1) 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 Cont home medications. Obtain Vitamin B12 and folate level. Consider starting patient on Anti-depressant. (2) Depressive disorder, not elsewhere classified ELPIDIO MCCOY MD Jan 09, 2017 19:23
[2017-01-09] MEDS: SIMVASTATIN 20 MG TABLET PO SCH (21:17)
[2017-01-09] MEDS: RISPERIDONE 0.25 MG TABLET PO SCH (21:17)
[2017-01-09] MEDS: IBUPROFEN 200 MG TABLET PO SCH (21:31)
--- NOTE | 2017-01-10 01:58 | NUR ---
Status Pt was cooperative with assessment, cares and medications. Pt has had no behaviors so far this shift. Pt has had no complaints of pain or discomfort and no PRN medications have been given. Pt is currently in bed sleeping with side rails up x2 and bed alarm activated.
[2017-01-10] MEDS: CEPHALEXIN 500 MG CAPSULE PO SCH ×2 (02:50→09:32)
[2017-01-10 03:46] LABS: FOLATE 8.2 NG/ML (2.76-20)
--- NOTE | 2017-01-10 03:57 | NUR ---
Chart Check 24 hour chart check completed
--- NOTE | 2017-01-10 06:24 | NUR ---
Summary Pt slept 7.25 last night. She was incontinent of urine once and was changed and went back to sleep. Pt had no behaviors or complaints of pain overnight. No PRN medications were given and patient is currently in bed sleeping with side rails up x2 and bed alarm activated
[2017-01-10] MEDS: NICOTINE PATCH REMOVAL TD SCH (09:00)
[2017-01-10] MEDS: OXCARBAZEPINE 300 MG TABLET PO SCH ×3 (09:32→20:48)
[2017-01-10] MEDS: NICOTINE 14 MG PATCH TD SCH (09:32)
[2017-01-10] MEDS: ESCITALOPRAM 10 MG TABLET PO SCH (09:32)
[2017-01-10] MEDS: LEVETIRACETAM 500 MG TABLET PO SCH ×2 (09:32→20:46)
[2017-01-10] MEDS: DEMECLOCYCLINE 150 MG TABLET PO SCH ×2 (09:33→20:46)
[2017-01-10] MEDS: ASPIRIN *EC* 81mg TABLET PO SCH (09:33)
[2017-01-10] MEDS: SENNOSIDES 8.6 MG TABLET PO SCH (09:33)
[2017-01-10] MEDS: LAMOTRIGINE 100 MG TABLET PO SCH ×2 (09:33→20:47)
[2017-01-10] MEDS: TOPIRAMATE 100 MG TABLET PO SCH ×2 (09:34→20:46)
--- NOTE | 2017-01-10 11:31 | NUR ---
CALENDER LET OFF HELPER--AM GROUP Pt. was in her room and did not participate in psychoeducational group facilitated by [facility].
--- NOTE | 2017-01-10 12:45 | NUR ---
mid shift note pt is isolating, pt states her name and day but was not sure where she was. pt is cooperative with cares and gets up to eat meals. pt was asked to participate in group and activities and does so. pt had no c/o pain or discomfort for this shift. pt has had no behaviors and received no prn medication for this shift.
[2017-01-10] MEDS ORDERED: LEVOFLOXACIN 500 MG TABLET PO ONE (13:13)
--- NOTE | 2017-01-10 15:05 | NUR ---
KIRAN CM LEFT VM AT [facility].
[2017-01-10 18:24] VITALS: BP_SYST 126; BP_SYST 129; BP_DIAS 70; BP_DIAS 71; PULSE 77; PULSE 79; RESP 14; RESP 16; TEMP 97.2; TEMP 97.6; O2SAT 95; O2SAT 96
--- NOTE | 2017-01-10 18:29 | NUR ---
shift note see prior note. pt is cheerful and continues to participate in activities. pt has not isolated for second half of shift. pt was incontinent once while napping but was able to change self with supervision. will continue to monitor pt till end of shift report.
[2017-01-10 20:37] VITALS: BP 142/79; PULSE 66; RESP 16; TEMP 96.6; O2SAT 96
[2017-01-10] MEDS: IBUPROFEN 200 MG TABLET PO SCH (20:47)
[2017-01-10] MEDS: SIMVASTATIN 20 MG TABLET PO SCH (20:48)
[2017-01-10] MEDS: RISPERIDONE 0.25 MG TABLET PO SCH (20:48)
--- NOTE | 2017-01-10 20:58 | GENPN ---
[facility] Subjective Date DATE: 01/10/17 TIME: 20:46 Subjective/Severity of Illness Medications Current Medications Medications (Trade) Dose Ordered Sig/Ujstus Start Time Stop Time Status Last Admin Dose Admin Aspirin (Ecotrin) 81 mg DAILY 01/09/17 09:00 01/10/17 09:33 81 MG Demeclocycline HCl (Declomycin) 150 mg BID 01/09/17 09:00 01/10/17 09:33 150 MG Escitalopram Oxalate (LEXAPRO 10mg) 5 mg DAILY 01/09/17 09:00 01/10/17 09:32 5 MG Ibuprofen (Motrin) 600 mg Q8H PRN 01/08/17 22:00 Ibuprofen (Motrin) 400 mg QD 01/08/17 22:00 01/09/17 07:07 DC 01/08/17 22:48 400 MG Lamotrigine (Lamictal) 100 mg PM 01/09/17 20:00 01/09/17 21:17 100 MG Lamotrigine (Lamictal) 50 mg DAILY 01/09/17 09:00 01/10/17 09:33 50 MG Levetiracetam (Keppra) 1,500 mg BID 01/09/17 09:00 01/10/17 09:32 1,500 MG Magnesium Hydroxide (Mom) 30 ml Q48H 01/09/17 08:00 01/09/17 10:17 30 ML Oxcarbazepine (Trileptal) 300 mg TID 01/09/17 09:00 01/10/17 14:36 300 MG Risperidone (Risperdal) 0.25 mg QD 01/08/17 22:00 01/09/17 06:27 DC 01/08/17 22:48 0.25 MG Sennosides (Sennagen) 17.2 mg DAILY 01/09/17 09:00 01/10/17 09:33 17.2 MG Camphor/Menthol/ Eucalyptus (Vicks Vaporub Ointment) 1 applic PRN PRN 01/08/17 22:00 Topiramate (Topamax) 150 mg BID 01/09/17 09:00 01/10/17 09:34 150 MG Miscellaneous Medication (May use PRN orders) 1 PRN PRN 01/08/17 22:00 Haloperidol (Haldol) 0.5 mg Q6H PRN 01/08/17 22:00 Lorazepam (Ativan) 0.5 mg Q6H PRN 01/08/17 22:00 Lorazepam (Ativan) 0.5 mg Q6H PRN 01/08/17 22:00 Haloperidol Lactate (Haldol 5 Mg/ml Inj) 0.5 mg Q6H PRN 01/08/17 22:00 Risperidone (Risperdal) 0.25 mg DAILY@21 01/09/17 22:00 01/09/17 21:17 0.25 MG Ibuprofen (Motrin) 400 mg DAILY@21 01/09/17 21:00 01/09/17 21:31 400 MG Cephalexin HCl (Keflex) 500 mg Q8HR 01/09/17 09:00 01/10/17 13:18 DC 01/10/17 09:32 500 MG Nicotine (Nicoderm) 14 mg DAILY 01/09/17 09:00 01/10/17 09:32 14 MG Nicotine (Nicoderm Patch Removal) 1 removal DAILY 01/10/17 09:00 01/10/17 09:00 1 REMOVAL Simvastatin (Zocor) 20 mg HS 01/09/17 21:00 01/09/17 21:17 20 MG Levofloxacin (LEVAQUIN 500 mg tablet) 500 mg ACB 01/11/17 06:30 01/14/17 23:00 Subjective Patient seen, chart reviewed and vitals noted to be stable. She is a 56-year-old , CF who has had 2 surgeries for brain aneurysm and has bilateral lower limb motor deficit. Patient can only walk a short distance with support. She also has history of grand mal seizures and she is on several AED which has controlled the seizures. Patient resides in [place] and presented with history of poor social inhibition, agitation and depression. Patient was seen today while on wheel chair and continues to report depressed mood and has been withdrawn today according to staff. Starting anti-depressant was discussed with patient and she was okay with it. She denies SI/HI and no AH/ VH. Sleep: 7.25 and has good appetite. Time of Service: 16:00 Start Time: 16:00 Stop Time: 16:15 Care >50% of this visit spent in counseling/coordination care. [facility] Exam Vitals Vital Signs Date Time Temp Pulse Resp B/P Pulse Ox O2 Delivery O2 Flow Rate FiO2 01/10/17 20:37 96.6 66 16 142/79 96 Room Air Physical examination performed by the hospitalist. Height (Feet): 5 Height (Inches): 4.50 Mental Status Exam Muscle Strength/Tone: Weak Dressing: Casual Grooming: Fair Attitude: Cooperative Eye Contact: Good Speech: Slowed Volume: Soft Rhythm: Appropriate Rhythm Sensory: Alert Orientation: Oriented to person, Oriented to place Mood: Depressed Affect: Restricted Rate of Thoughts: Appropriate Rate Thought Organization: [place] Associations: Intact Abstract Reasoning: Impaired, concrete Thought Content: Normal Attention Span/Concentration: Short Span Fund of Knowledge: Poor fund of knowledge Memory: Poor-immediate Suicidal Ideation: None Homicidal Ideation: None Insight: Fair Judgment: Fair Impulse Control: Fair Assessment and Plan (1) 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 Cont home medications. Obtain Vitamin B12 and folate level. Consider starting patient on Anti-depressant. 01/10/17: Start patient on Sertraline po 25mg daily. Will obtain a repeat CBC prior to discharge. (2) Depressive disorder, not elsewhere classified ELPIDIO MCCOY MD Jan 10, 2017 20:54
[2017-01-10 21:49] VITALS: RESP 18
--- NOTE | 2017-01-11 00:21 | NUR ---
Mid shift status Pt was sitting in day room at beginning of shift. Pt is alert x [address] Up x 1 assist. Pt pleasant and cooperative with assessment. Denies SOA. Denies nausea. C/o headache pain along the frontal part of head, rating pain at 10/10. Pt was given her scheduled Motrin 400 mg, along with other HS meds. Compliant with all meds, taking whole without difficulty. Pt refused oral cares. Continent at HS, voiding in toilet. Pt has not displayed any aggression. No agitation or behaviors noted. No PRNs given. Has not isolated in room on evening shift. Pt makes needs known. Currently sleeping. Bed rails up x 2 and alarm on. Will continue to monitor
--- NOTE | 2017-01-11 02:59 | NUR ---
Chart Check 24 hour chart check completed
[2017-01-11] MEDS: LEVOFLOXACIN 500 MG TABLET PO SCH (05:54)
--- NOTE | 2017-01-11 06:17 | NUR ---
Summary Pt slept 8.25 hours this shift. Pt alert x 2. Up assist x 1/ SBA. No changes since previous status note. No aggressive behaviors noted. No display of hallucinations. No PRNs given this shift. Compliant with morning meds. Currently sleeping. Bed rails up x 2 and alarm on. Will continue to monitor
[2017-01-11 08:00] VITALS: BP 118/67; PULSE 67; RESP 20; TEMP 98.3; O2SAT 95
[2017-01-11] MEDS: MILK OF MAGNESIA 30 ML SUSP PO SCH (08:21)
[2017-01-11] MEDS: SENNOSIDES 8.6 MG TABLET PO SCH (08:22)
[2017-01-11] MEDS: TOPIRAMATE 100 MG TABLET PO SCH ×2 (08:22→20:39)
[2017-01-11] MEDS: DEMECLOCYCLINE 150 MG TABLET PO SCH ×2 (08:23→20:34)
[2017-01-11] MEDS: LEVETIRACETAM 500 MG TABLET PO SCH ×2 (08:23→20:35)
[2017-01-11] MEDS: ESCITALOPRAM 10 MG TABLET PO SCH (08:23)
[2017-01-11] MEDS: ASPIRIN *EC* 81mg TABLET PO SCH (08:23)
[2017-01-11] MEDS: OXCARBAZEPINE 300 MG TABLET PO SCH ×3 (08:25→20:39)
[2017-01-11] MEDS: NICOTINE 14 MG PATCH TD SCH (08:25)
[2017-01-11] MEDS: NICOTINE PATCH REMOVAL TD SCH (08:25)
[2017-01-11] MEDS: LAMOTRIGINE 100 MG TABLET PO SCH ×2 (08:26→20:33)
[2017-01-11] MEDS: SERTRALINE 25 MG TABLET PO SCH (08:26)
--- NOTE | 2017-01-11 10:00 | NUR ---
HOSPITAL COORDINATOR--AM GROUP Pt. was present and actively engaged in psychoeducational group facilitated by [facility]. Reviewed expectations and routines of [facility]. Reminded patients that each of them were here for different reasons but all had goals they were working on during their stay. Encouraged patients to stay active and participate in as many groups as possible. Stressed importance of staying engaged in cognitive stimulating activities. Pt. repeatedly asked when she was going to be released and when she could have a cigarette. Played [employer] game that stimulated neurocognitive functioning and promotes socialization. Pt. attempted to answer all questions asked. Pt. demonstrated pleasant mood with occasional periods of irritability. Ended group by listening to variety of genres of music. Pt. sang along with several of the songs played.
--- NOTE | 2017-01-11 11:16 | NUR ---
RETAIL STORE ASSOCIATE--[employer] Referral Pt. repeatedly complained about craving a cigarette during AM group. Offered nicotine gum but pt. stated she does not chew gum. Offered to see about nicotine lozenge but pt. insisted the only thing that would help her is a cigarette. She was offered the [employer] referral form. Pt. insists she has no intention of quitting and refused to sign. She said she had a doctor tell her that she was so addicted to nicotine that if she wasn't allowed to smoke, she could have a seizure. She stated that if she has a seizure while she is here, she is going to blame the hospital because they won't allow her to smoke.
--- NOTE | 2017-01-11 12:54 | PNPDOC ---
Subjective Date DATE: 01/11/17 TIME: 12:49 Subjective Patient is seen this morning while sitting in the day room watching television. She verbalizes her anger that she is not allowed to go outside and smoke. States "If you do not allow me to smoke, I will probably have a seizure". Offered to increase nicotine patch dosing. However, patient states that is not good enough. She otherwise denies having pain or dyspnea. Blood pressure 118/67. Objective Vital Signs Vital signs Vital Signs Date Time Temp Pulse Resp B/P Pulse Ox O2 Delivery O2 Flow Rate FiO2 01/11/17 08:00 98.3 67 20 118/67 95 Room Air Height (Feet): 5 Height (Inches): 4.50 Weight (Kilograms): 51.000 General General Appearance: Alert, Orientated x 1, Cooperative, No Acute Distress Eyes (Brief) Eyes: FOUND: EOMI ENMT (Brief) ENMT: FOUND: mucosa moist, normal dentition, NOT FOUND: pharnyx erythema Neck (Brief) Neck: FOUND: midline, NOT FOUND: adenopathy, carotid bruits, tracheal deviation Respiratory (Brief) Respiratory: FOUND: clear all mccullough, equal bilaterally, NOT FOUND: wheezes Cardiovascular (Brief) Cardiac: FOUND: regular rate, regular rhythm, NOT FOUND: murmur, pedal edema Capillary Refill: <2 sec Abdomen (Brief) Abdominal: FOUND: BS normo active x4, soft, NOT FOUND: distended, tender Lymphatic (Brief) Lymphatic: NOT FOUND: adenopathy Musculoskeletal (Brief) Musculoskeletal: NOT FOUND: tenderness Integumentary (Brief) Integumentary: FOUND: dry, pink, warm Neurologic (Brief) Neurological: FOUND: cranial 2-12 intact Psychiatric (Brief) Psychiatric: FOUND: alert, attentive, normal affect Microbiology Microbiology Microbiology Date/Time Source Procedure Growth Status 01/08/17 18:47 Urine, Voided-Not Cc-Midstream Urine Culture - Final Providencia Stuartii Complete Assessment & Plan Problems: (1) UTI (urinary tract infection) Status: Acute Qualifiers: Urinary tract infection type: acute cystitis Hematuria presence: with hematuria Qualified Codes: N30.01 - Acute cystitis with hematuria (2) Seizure disorder, grand mal Status: Chronic (3) Nontraumatic intracerebral hemorrhage Status: Chronic (4) SIADH (syndrome of inappropriate ADH production) Status: Chronic (5) Gastroparesis Status: Chronic (6) CANELO (generalized anxiety disorder) Status: Chronic (7) Idiopathic gout Status: Chronic (8) Constipation Status: Chronic (9) Headache Status: Chronic (10) Dyslipidemia Status: Chronic Plan/Intensity of Service 01/11/17 Regards to urinary tract infection, urine culture is positive for Providencia Stuartii. Pt switched to PO Levaquin on 01/10/17. Will continue 5 days of treatment, and date 01/14/17. Increase Nicotine patch to 21mg transdermal. Offered nicotine gum however patient declined Continue with Keppra twice a day in regards to seizure disorder Blood pressure continues to be well controlled Otherwise, patient appears medically stable Psychiatric notes reviewed Code Status Full Code, unverified Hospital Course Summary Disclaimer The hospital course summary below is not to be considered part of the above Progress Note. Hospital Course Summary 01/09/17 Agree with admission. B12 and folate still pending. Other labs stable with exception of lipid panel. UTI - continue Keflex; watch for C&S results. Dyslipidemia - start low dose simvastatin and monitor response. Hx grand mal seizure - cont antiepileptics Constipation - PRNs available SIADH - Na normal; continue demeclocycline Tobacco use - pt indicated she's not interested in quitting. Agree with providing tobacco cessation information. Nicotine patch ordered. 01/11/17 Regards to urinary tract infection, urine culture is positive for Providencia Stuartii. Pt switched to PO Levaquin on 01/10/17. Will continue 5 days of treatment, and date 01/14/17. Increase Nicotine patch to 21mg transdermal. Offered nicotine gum however patient declined Continue with Keppra twice a day in regards to seizure disorder Blood pressure continues to be well controlled Otherwise, patient appears medically stable Psychiatric notes reviewed TYRA CEBALLOS APRN Jan 11, 2017 12:54
--- NOTE | 2017-01-11 14:37 | NUR ---
MID SHIFT NOTE PT IS A&O X3 AT THIS TIME. PT IS COMPLIANT WITH CARES. PT IS FIXATED ON SMOKING AND COFFEE BUT WILL ALLOW REDIRECTION AND IS PLEASANT WITH STAFF. PT WANTED TO STAY IN ROOM AND SLEEP BUT DID GET UP FOR BREAKFAST AND STAYED IN DAY ROOM FOR MOST OF THE MORNING. PT PARTICIPATED IN GROUP ACTIVITIES. PT HAS HAD NO PRN MEDICATION OR BEHAVIORS FOR THIS SHIFT.
--- NOTE | 2017-01-11 15:34 | NUR ---
KIRAN BECK SPOKE WITH DANYELLE MARIN FROM [facility]. FACILITY WILL TRANSPORT PT AT TIME OF D/C. FACILITY DOES USE [facility] FOR PT WILL MENTAL HEALTH NEEDS. DANYELLE IS AWARE TO CONTACT KIRAN IF NEEDS [facility].
[2017-01-11 16:00] VITALS: BP 117/69; PULSE 69; RESP 16; TEMP 97.8; O2SAT 99
[2017-01-11 17:07] VITALS: RESP 16
--- NOTE | 2017-01-11 19:00 | NUR ---
STATUS PT IS SEATED IN WATCHING TV. BECOMES VERY SAD WHEN SHE BEINGS TO TALK ABOUT HER DOG THAT DIES 20 YRS AGO. IS TEARFUL. EASILY REDIRECTED AT THIS TIME. NO OTHER NEEDS ARE NOTED.
--- NOTE | 2017-01-11 19:14 | NUR ---
SHIFT SUMMARY NOTE SEE PRIOR NOTE. PT HAS NOT ISOLATED AND HAS STAYED UP IN DAY ROOM FOR THE MAJORITY OF THE SHIFT. PT EATS WELL AND HAS PARTICIPATED IN GROUP AND ACTIVITIES. WILL CONTINUE TO MONITOR PT TILL END OF SHIFT REPORT.
[2017-01-11 20:00] VITALS: BP 133/75; PULSE 71; RESP 16; RESP 20; TEMP 98; O2SAT 97
[2017-01-11] MEDS: RISPERIDONE 0.25 MG TABLET PO SCH (20:36)
[2017-01-11] MEDS: IBUPROFEN 200 MG TABLET PO SCH (20:36)
[2017-01-11] MEDS: SIMVASTATIN 20 MG TABLET PO SCH (20:39)
--- NOTE | 2017-01-11 21:07 | GENPN ---
[facility] Subjective Date DATE: 01/11/17 TIME: 20:52 Subjective/Severity of Illness Medications Current Medications Medications (Trade) Dose Ordered Sig/Justus Start Time Stop Time Status Last Admin Dose Admin Aspirin (Ecotrin) 81 mg DAILY 01/09/17 09:00 01/11/17 08:23 81 MG Demeclocycline HCl (Declomycin) 150 mg BID 01/09/17 09:00 01/11/17 20:34 150 MG Escitalopram Oxalate (LEXAPRO 10mg) 5 mg DAILY 01/09/17 09:00 01/11/17 08:23 5 MG Ibuprofen (Motrin) 600 mg Q8H PRN 01/08/17 22:00 Ibuprofen (Motrin) 400 mg QD 01/08/17 22:00 01/09/17 07:07 DC 01/08/17 22:48 400 MG Lamotrigine (Lamictal) 100 mg PM 01/09/17 20:00 01/11/17 20:33 100 MG Lamotrigine (Lamictal) 50 mg DAILY 01/09/17 09:00 01/11/17 08:26 50 MG Levetiracetam (Keppra) 1,500 mg BID 01/09/17 09:00 01/11/17 20:35 1,500 MG Magnesium Hydroxide (Mom) 30 ml Q48H 01/09/17 08:00 01/11/17 08:21 30 ML Oxcarbazepine (Trileptal) 300 mg TID 01/09/17 09:00 01/11/17 20:39 300 MG Risperidone (Risperdal) 0.25 mg QD 01/08/17 22:00 01/09/17 06:27 DC 01/08/17 22:48 0.25 MG Sennosides (Sennagen) 17.2 mg DAILY 01/09/17 09:00 01/11/17 08:22 17.2 MG Camphor/Menthol/ Eucalyptus (Vicks Vaporub Ointment) 1 applic PRN PRN 01/08/17 22:00 Topiramate (Topamax) 150 mg BID 01/09/17 09:00 01/11/17 20:39 150 MG Miscellaneous Medication (May use PRN orders) 1 PRN PRN 01/08/17 22:00 Haloperidol (Haldol) 0.5 mg Q6H PRN 01/08/17 22:00 Lorazepam (Ativan) 0.5 mg Q6H PRN 01/08/17 22:00 Lorazepam (Ativan) 0.5 mg Q6H PRN 01/08/17 22:00 Haloperidol Lactate (Haldol 5 Mg/ml Inj) 0.5 mg Q6H PRN 01/08/17 22:00 Risperidone (Risperdal) 0.25 mg DAILY@21 01/09/17 22:00 01/11/17 20:36 0.25 MG Ibuprofen (Motrin) 400 mg DAILY@21 01/09/17 21:00 01/11/17 20:36 400 MG Cephalexin HCl (Keflex) 500 mg Q8HR 01/09/17 09:00 01/10/17 13:18 DC 01/10/17 09:32 500 MG Nicotine (Nicoderm) 14 mg DAILY 01/09/17 09:00 01/11/17 12:49 DC 01/11/17 08:25 14 MG Nicotine (Nicoderm Patch Removal) 1 removal DAILY 01/10/17 09:00 01/11/17 12:49 DC 01/11/17 08:25 1 REMOVAL Simvastatin (Zocor) 20 mg HS 01/09/17 21:00 01/11/17 20:39 20 MG Levofloxacin (LEVAQUIN 500 mg tablet) 500 mg ACB 01/11/17 06:30 01/14/17 23:00 01/11/17 05:54 500 MG Sertraline HCl (Zoloft) 25 mg DAILY 01/11/17 09:00 01/11/17 08:26 25 MG Subjective Patient seen, chart reviewed and vitals noted to be stable. She is a 56-year-old , CF who has had 2 surgeries for brain aneurysm and has bilateral lower limb motor deficit. Patient can only walk a short distance with support. She also has history of grand mal seizures and she is on several AED which has controlled the seizures. Patient resides in [place] and presented with history of poor social inhibition, agitation and depression. Patient was seen today while on wheel chair and reports no problem. She has chronic headaches from her brain surgery and she feels that it is at baseline. She was able to eat some breakfast today but reportedly skipped lunch and was later seen eating dinner. Patient was started on trial of Sertraline this morning and she has tolerated without any side effect. Staff reports no behavioral problem other than perseverating about smoking. Sleep: 8.25 and has fair appetite. Time of Service: 17:15 Start Time: 17:15 Stop Time: 17:30 Care >50% of this visit spent in counseling/coordination care. [facility] Exam Vitals Vital Signs Date Time Temp Pulse Resp B/P Pulse Ox O2 Delivery O2 Flow Rate FiO2 01/11/17 20:00 98.0 71 16 133/75 97 Room Air Physical examination performed by the hospitalist. Height (Feet): 5 Height (Inches): 4.50 Mental Status Exam Muscle Strength/Tone: Weak Dressing: Neat Attitude: Cooperative Motor Activity: Normal Eye Contact: Fair Speech: Normal Volume: Soft Rhythm: Perseveration Sensory: Alert Orientation: Disoriented to time, Oriented to person, Oriented to place Mood: Depressed Affect: Restricted Rate of Thoughts: Appropriate Rate Thought Organization: [place] Associations: Intact Abstract Reasoning: Impaired, concrete Computation: Poor Computation Thought Content: Normal Attention Span/Concentration: Normal Fund of Knowledge: Appropriate Memory: Poor-recent Suicidal Ideation: None Homicidal Ideation: None Insight: Fair Judgment: Poor Impulse Control: Poor Assessment and Plan (1) 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 Cont home medications. Obtain Vitamin B12 and folate level. Consider starting patient on Anti-depressant. 01/10/17: Start patient on Sertraline po 25mg daily. Will obtain a repeat CBC prior to discharge. 01/11/17: Cont current medication (2) Depressive disorder, not elsewhere classified ELPIDIO MCCOY MD Jan 11, 2017 21:01
--- NOTE | 2017-01-12 05:18 | NUR ---
SHIFT SUMMARY PT WAS TEARFUL IN THE COMMON ROOM WITH OTHER PTS. TALKS ABOUT DOG THAT 20YRS AGO AND THAT SHE CANNOT FORGET IT. PT IS EASILY REDIRECTED TO ANOTHER CONVERSATION WHERE SHE IS ABLE TO SMILE AND TAKE PART. WHEELS SELF AROUND UNIT. REQUIRES ASSISTANCE X1 TO THE RESTROOM AND FOR PM CARES. ANGELICA CARES ARE PROVIDED. PT IS CONT THROUGH SHIFT. HAS NO OTHER BEHAVIORS THROUGH SHIFT. SLEEPS WELL WITH ONLY ONE TIME UP TO TOILET. NO ADDITIONAL NEEDS ARE NOTED.
[2017-01-12] MEDS: LEVOFLOXACIN 500 MG TABLET PO SCH (05:56)
--- NOTE | 2017-01-12 06:19 | NUR ---
SLEEP TIME PT SLEPT 8.75 HOURS
[2017-01-12 08:00] VITALS: BP 124/74; PULSE 63; RESP 16; TEMP 97.2; O2SAT 96
--- NOTE | 2017-01-12 08:00 | NUR ---
Pt Status Pt. lying in bed nude except for stocking hat. Refuses breakfast and states "I need to sleep." Pt verbalization in matter of fact way and reports "I don't eat breakfast. States she slept fair but only wants to smoke cigarettes. Pt knows she is in [facility] and reminded that non-smoking facility.
[2017-01-12] MEDS: ASPIRIN *EC* 81mg TABLET PO SCH (09:40)
[2017-01-12] MEDS: DEMECLOCYCLINE 150 MG TABLET PO SCH ×2 (09:40→20:01)
[2017-01-12] MEDS: ESCITALOPRAM 10 MG TABLET PO SCH (09:41)
[2017-01-12] MEDS: LEVETIRACETAM 500 MG TABLET PO SCH ×2 (09:41→20:01)
[2017-01-12] MEDS: LAMOTRIGINE 100 MG TABLET PO SCH ×2 (09:41→20:02)
[2017-01-12] MEDS: SENNOSIDES 8.6 MG TABLET PO SCH (09:42)
[2017-01-12] MEDS: TOPIRAMATE 100 MG TABLET PO SCH ×2 (09:43→20:02)
[2017-01-12] MEDS: SERTRALINE 25 MG TABLET PO SCH (09:43)
[2017-01-12] MEDS: OXCARBAZEPINE 300 MG TABLET PO SCH ×3 (09:43→20:02)
--- NOTE | 2017-01-12 10:30 | NUR ---
PIE CHEF--AM GROUP Pt. was in her room in bed and did not join psychoeducational group facilitated by [facility].
[2017-01-12 16:33] VITALS: BP 135/69; PULSE 67; RESP 20; TEMP 99.2; O2SAT 100
[2017-01-12] MEDS: IBUPROFEN 200 MG TABLET PO SCH (20:01)
[2017-01-12] MEDS: SIMVASTATIN 20 MG TABLET PO SCH (20:02)
[2017-01-12] MEDS: RISPERIDONE 0.25 MG TABLET PO SCH (20:02)
[2017-01-12 21:27] VITALS: PULSE 72; RESP 15
[2017-01-12 22:21] VITALS: BP 116/73; PULSE 72; RESP 15; TEMP 97.7; O2SAT 97
--- NOTE | 2017-01-12 23:53 | GENPN ---
[facility] Subjective Date DATE: 01/12/17 TIME: 23:48 Subjective/Severity of Illness Medications Current Medications Medications (Trade) Dose Ordered Sig/Justus Start Time Stop Time Status Last Admin Dose Admin Aspirin (Ecotrin) 81 mg DAILY 01/09/17 09:00 01/12/17 09:40 81 MG Demeclocycline HCl (Declomycin) 150 mg BID 01/09/17 09:00 01/12/17 20:01 150 MG Escitalopram Oxalate (LEXAPRO 10mg) 5 mg DAILY 01/09/17 09:00 01/12/17 09:41 5 MG Ibuprofen (Motrin) 600 mg Q8H PRN 01/08/17 22:00 Ibuprofen (Motrin) 400 mg QD 01/08/17 22:00 01/09/17 07:07 DC 01/08/17 22:48 400 MG Lamotrigine (Lamictal) 100 mg PM 01/09/17 20:00 01/12/17 20:02 100 MG Lamotrigine (Lamictal) 50 mg DAILY 01/09/17 09:00 01/12/17 09:41 50 MG Levetiracetam (Keppra) 1,500 mg BID 01/09/17 09:00 01/12/17 20:01 1,500 MG Magnesium Hydroxide (Mom) 30 ml Q48H 01/09/17 08:00 01/11/17 08:21 30 ML Oxcarbazepine (Trileptal) 300 mg TID 01/09/17 09:00 01/12/17 20:02 300 MG Risperidone (Risperdal) 0.25 mg QD 01/08/17 22:00 01/09/17 06:27 DC 01/08/17 22:48 0.25 MG Sennosides (Sennagen) 17.2 mg DAILY 01/09/17 09:00 01/12/17 09:42 17.2 MG Camphor/Menthol/ Eucalyptus (Vicks Vaporub Ointment) 1 applic PRN PRN 01/08/17 22:00 Topiramate (Topamax) 150 mg BID 01/09/17 09:00 01/12/17 20:02 150 MG Miscellaneous Medication (May use PRN orders) 1 PRN PRN 01/08/17 22:00 Haloperidol (Haldol) 0.5 mg Q6H PRN 01/08/17 22:00 Lorazepam (Ativan) 0.5 mg Q6H PRN 01/08/17 22:00 Lorazepam (Ativan) 0.5 mg Q6H PRN 01/08/17 22:00 Haloperidol Lactate (Haldol 5 Mg/ml Inj) 0.5 mg Q6H PRN 01/08/17 22:00 Risperidone (Risperdal) 0.25 mg DAILY@21 01/09/17 22:00 01/12/17 20:02 0.25 MG Ibuprofen (Motrin) 400 mg DAILY@21 01/09/17 21:00 01/12/17 20:01 400 MG Cephalexin HCl (Keflex) 500 mg Q8HR 01/09/17 09:00 01/10/17 13:18 DC 01/10/17 09:32 500 MG Nicotine (Nicoderm) 14 mg DAILY 01/09/17 09:00 01/11/17 12:49 DC 01/11/17 08:25 14 MG Nicotine (Nicoderm Patch Removal) 1 removal DAILY 01/10/17 09:00 01/11/17 12:49 DC 01/11/17 08:25 1 REMOVAL Simvastatin (Zocor) 20 mg HS 01/09/17 21:00 01/12/17 20:02 20 MG Levofloxacin (LEVAQUIN 500 mg tablet) 500 mg ACB 01/11/17 06:30 01/14/17 23:00 01/12/17 05:56 500 MG Sertraline HCl (Zoloft) 25 mg DAILY 01/11/17 09:00 01/12/17 09:43 25 MG Subjective Patient seen, chart examined. Case discussed with nursing. Nursing reports pt tends to isolate and have some morbid thoughts. She reports hopelesness to staff. On face to face pt states she is doing well. She reports she feels her mood is improved. Sleeping and eating well. Denies S/I. Tolerating meds Time of Service: 17:15 Start Time: 17:15 Stop Time: 17:30 Care >50% of this visit spent in counseling/coordination care. [facility] Exam Vitals Vital Signs Date Time Temp Pulse Resp B/P Pulse Ox O2 Delivery O2 Flow Rate FiO2 01/12/17 22:21 97.7 72 15 116/73 97 Room Air Physical examination performed by the hospitalist. Height (Feet): 5 Height (Inches): 4.50 Mental Status Exam Muscle Strength/Tone: Normal Dressing: Casual Grooming: Good Attitude: Cooperative Motor Activity: Retardation Eye Contact: Fair Speech: Slowed Volume: Soft Rhythm: Appropriate Rhythm Sensory: Alert Orientation: Oriented to person, Oriented to place Mood: Neutral Affect: Congruent Rate of Thoughts: Delayed Thought Organization: [place] Associations: Illogical Abstract Reasoning: Poor abstract reasoning Thought Content: Normal Perception/Psychotic: Perception Normal Attention Span/Concentration: Short Span Fund of Knowledge: Poor fund of knowledge Memory: Poor-immediate, Poor-recent Suicidal Ideation: None Homicidal Ideation: None Insight: Limited Judgment: Limited Impulse Control: Fair Assessment and Plan (1) 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 Cont home medications. Obtain Vitamin B12 and folate level. Consider starting patient on Anti-depressant. 01/10/17: Start patient on Sertraline po 25mg daily. Will obtain a repeat CBC prior to discharge. 01/11/17: Cont current medication 01/12/17 Continue current care (2) Depressive disorder, not elsewhere classified Cont. current psych. meds MARY ALICE CEDENO MD Jan 12, 2017 23:52
--- NOTE | 2017-01-13 00:27 | NUR ---
Mid shift status Pt was sitting in day room in at beginning of shift. Pt is pleasant and cooperative with assessment. Alert to person and place. Up assist x 1 with pivot to . Pt compliant with HS meds, taking whole without difficulty. Pt perseverates about wanting to smoke. States when she gets out, "I am going to light up". Asked pt if the patch was working for her and pt stated it was not. "You cannot substitute anything for a cigarette, it is just not the same". Pt has not displayed any agitation or behaviors this shift. No physical or verbal aggression noted. No hallucinations noted. Pt refused her shower at stating she had her medications already and they were "kicking in" and would prefer to take her shower in the morning. No PRNs given this shift. Pt did not isolate this shift. Makes needs known. Uses call light appropriately. She stayed out in day room until it was time for bed, going to bed at 2044. Pt is continent and incontinent this shift. Currently sleeping. Bed rails up x 2 and alarm on. Will continue to monitor.
--- NOTE | 2017-01-13 00:27 | NUR ---
Chart Check 24 hour chart check completed
[2017-01-13] MEDS: LEVOFLOXACIN 500 MG TABLET PO SCH (05:57)
--- NOTE | 2017-01-13 06:19 | NUR ---
Summary Pt slept 8.00 hours this shift. Pt alert x 2. Up assist x 1 pivot to WC. Pleasant and cooperative. Compliant with all meds this shift. No displays of verbal or physical aggression. No agitation or behaviors noted. No hallucinations noted. Pt continent and incontinent. No PRNs given this shift. Currently sleeping. Bed rails up x 2 and alarm on. Will continue to monitor
[2017-01-13] MEDS: ASPIRIN *EC* 81mg TABLET PO SCH (09:07)
[2017-01-13] MEDS: MILK OF MAGNESIA 30 ML SUSP PO SCH (09:07)
[2017-01-13] MEDS: LEVETIRACETAM 500 MG TABLET PO SCH ×2 (09:07→19:53)
[2017-01-13] MEDS: SENNOSIDES 8.6 MG TABLET PO SCH (09:08)
[2017-01-13] MEDS: DEMECLOCYCLINE 150 MG TABLET PO SCH ×2 (09:08→19:51)
[2017-01-13] MEDS: OXCARBAZEPINE 300 MG TABLET PO SCH ×3 (09:08→19:53)
[2017-01-13] MEDS: LAMOTRIGINE 100 MG TABLET PO SCH ×2 (09:08→19:54)
[2017-01-13] MEDS: SERTRALINE 25 MG TABLET PO SCH (09:09)
[2017-01-13] MEDS: ESCITALOPRAM 10 MG TABLET PO SCH (09:09)
[2017-01-13] MEDS: TOPIRAMATE 100 MG TABLET PO SCH ×2 (09:09→19:53)
[2017-01-13 10:00] VITALS: PULSE 68; RESP 15
[2017-01-13 10:01] VITALS: BP 124/69; PULSE 72; RESP 15; TEMP 96.8; O2SAT 98
--- NOTE | 2017-01-13 10:30 | GENPN ---
[facility] Subjective Date DATE: 01/13/17 TIME: 10:27 Subjective/Severity of Illness Medications Current Medications Medications (Trade) Dose Ordered Sig/Justus Start Time Stop Time Status Last Admin Dose Admin Aspirin (Ecotrin) 81 mg DAILY 01/09/17 09:00 01/13/17 09:07 81 MG Demeclocycline HCl (Declomycin) 150 mg BID 01/09/17 09:00 01/13/17 09:08 150 MG Escitalopram Oxalate (LEXAPRO 10mg) 5 mg DAILY 01/09/17 09:00 01/13/17 09:09 5 MG Ibuprofen (Motrin) 600 mg Q8H PRN 01/08/17 22:00 Ibuprofen (Motrin) 400 mg QD 01/08/17 22:00 01/09/17 07:07 DC 01/08/17 22:48 400 MG Lamotrigine (Lamictal) 100 mg PM 01/09/17 20:00 01/12/17 20:02 100 MG Lamotrigine (Lamictal) 50 mg DAILY 01/09/17 09:00 01/13/17 09:08 50 MG Levetiracetam (Keppra) 1,500 mg BID 01/09/17 09:00 01/13/17 09:07 1,500 MG Magnesium Hydroxide (Mom) 30 ml Q48H 01/09/17 08:00 01/13/17 09:07 30 ML Oxcarbazepine (Trileptal) 300 mg TID 01/09/17 09:00 01/13/17 09:08 300 MG Risperidone (Risperdal) 0.25 mg QD 01/08/17 22:00 01/09/17 06:27 DC 01/08/17 22:48 0.25 MG Sennosides (Sennagen) 17.2 mg DAILY 01/09/17 09:00 01/13/17 09:08 17.2 MG Camphor/Menthol/ Eucalyptus (Vicks Vaporub Ointment) 1 applic PRN PRN 01/08/17 22:00 Topiramate (Topamax) 150 mg BID 01/09/17 09:00 01/13/17 09:09 150 MG Miscellaneous Medication (May use PRN orders) 1 PRN PRN 01/08/17 22:00 Haloperidol (Haldol) 0.5 mg Q6H PRN 01/08/17 22:00 Lorazepam (Ativan) 0.5 mg Q6H PRN 01/08/17 22:00 Lorazepam (Ativan) 0.5 mg Q6H PRN 01/08/17 22:00 Haloperidol Lactate (Haldol 5 Mg/ml Inj) 0.5 mg Q6H PRN 01/08/17 22:00 Risperidone (Risperdal) 0.25 mg DAILY@21 01/09/17 22:00 01/12/17 20:02 0.25 MG Ibuprofen (Motrin) 400 mg DAILY@21 01/09/17 21:00 01/12/17 20:01 400 MG Cephalexin HCl (Keflex) 500 mg Q8HR 01/09/17 09:00 01/10/17 13:18 DC 01/10/17 09:32 500 MG Nicotine (Nicoderm) 14 mg DAILY 01/09/17 09:00 01/11/17 12:49 DC 01/11/17 08:25 14 MG Nicotine (Nicoderm Patch Removal) 1 removal DAILY 01/10/17 09:00 01/11/17 12:49 DC 01/11/17 08:25 1 REMOVAL Simvastatin (Zocor) 20 mg HS 01/09/17 21:00 01/12/17 20:02 20 MG Levofloxacin (LEVAQUIN 500 mg tablet) 500 mg ACB 01/11/17 06:30 01/14/17 23:00 01/13/17 05:57 500 MG Sertraline HCl (Zoloft) 25 mg DAILY 01/11/17 09:00 01/13/17 09:09 25 MG Subjective Patient seen, chart examined. Case discussed with nursing. Nursing reports pt is doing well. She tends to isolate but is out of her room a little more. On face to face the pt is alert and oriented x 2. She believes it is April. She is focused on getting a cigarette and returns to this theme often. She reports tolerating her medication well. Reports her mood is stable and denies any S/I. Time of Service: 10:15 Start Time: 10:15 Stop Time: 10:30 Care >50% of this visit spent in counseling/coordination care. [facility] Exam Vitals Vital Signs Date Time Temp Pulse Resp B/P Pulse Ox O2 Delivery O2 Flow Rate FiO2 01/13/17 10:01 96.8 72 15 124/69 98 Room Air Physical examination performed by the hospitalist. Height (Feet): 5 Height (Inches): 4.50 Mental Status Exam Muscle Strength/Tone: Normal Dressing: Casual Grooming: Good Attitude: Cooperative Motor Activity: Normal Eye Contact: Good Speech: Slowed Volume: Soft Rhythm: Slurred Sensory: Alert Orientation: Oriented to person, Oriented to place Mood: Neutral Affect: Congruent Rate of Thoughts: Delayed Thought Organization: [place] Associations: Intact Abstract Reasoning: Impaired, concrete Thought Content: Ruminations Perception/Psychotic: Perception Normal Attention Span/Concentration: Short Span Fund of Knowledge: Poor fund of knowledge Memory: Poor-immediate, Poor-recent Suicidal Ideation: None Homicidal Ideation: None Insight: Limited Judgment: Limited Impulse Control: Fair Assessment and Plan (1) 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 Cont home medications. Obtain Vitamin B12 and folate level. Consider starting patient on Anti-depressant. 01/10/17: Start patient on Sertraline po 25mg daily. Will obtain a repeat CBC prior to discharge. 01/11/17: Cont current medication 01/12/17 Continue current care 01/13/17 D/C Lexapro (2) Depressive disorder, not elsewhere classified Cont. current psych. meds MARY ALICE CEDENO MD Jan 13, 2017 10:30
--- NOTE | 2017-01-13 14:00 | NUR ---
MID SHIFT PT IS A&O X2-3 DEPENDING ON TIME OF DAY. PT IS UP W/ AX1 PIVOT TRANSFER TO W/C. PT HAS BEEN CONTINENT FOR THIS SHIFT. PT HAS REFUSED CARES SEVERAL TIMES TODAY. PT DIDN'T GET UP AND HAVE LUNCH IN DINNING ROOM WITH STAFF AND OTHER RESIDENTS. PT THEN SAT IN DAY ROOM AND WATCHED TV AND ENGAGED OTHER PT WHILE DRINKING COFFEE. PT HAS HAD NO BEHAVIORS THAT NEEDED TO BE MEDICATED AND NO PRN'S WERE GIVEN.
[2017-01-13 15:52] VITALS: BP 109/65; PULSE 65; RESP 18; TEMP 98; O2SAT 99
--- NOTE | 2017-01-13 17:50 | NUR ---
SHIFT SUMMARY SEE PRIOR NOTE. PT IS CONFUSED AND NEEDS REDIRECTION AND ORIENTATION FREQUENTLY. PT WAS TEARFUL AND WANTED TO ISOLATE AFTER LUNCH BUT AFTER A SHORT NAP PT WAS INVITED TO WALK DOWN TO THE DAY ROOM WITH STAFF AND HAS HAD NO OTHER BEHAVIORS SINCE. PT TAKES MEDICATION AND EATS WELL. PT IS AN UNSTEADY SBA. WILL CONTINUE TO MONITOR PT TILL END OF SHIFT REPORT.
[2017-01-13] MEDS: IBUPROFEN 200 MG TABLET PO SCH (19:52)
[2017-01-13] MEDS: RISPERIDONE 0.25 MG TABLET PO SCH (19:54)
[2017-01-13] MEDS: SIMVASTATIN 20 MG TABLET PO SCH (19:54)
[2017-01-13 21:34] VITALS: BP 88/53; PULSE 125; RESP 18; TEMP 98.4; O2SAT 96
--- NOTE | 2017-01-14 01:03 | NUR ---
Chart Check 24 hour chart check completed
--- NOTE | 2017-01-14 01:03 | NUR ---
Mid shift status Pt was in bed at beginning of shift. Pt pleasant and cooperative with assessment. Pt remains obsessed with having a cigarette. She asked this nurse to go buy her a pack. Explained to pt smoking not allowed, but would be happy to place a nicotine patch on her. Pt refused to have a patch. Pt was incontinent prior to HS meds. Asked pt why she didn't notify staff to get her up to BR. Pt replied "because it just came out too fast, that's why". Bed linens changed and pt cleaned up, given a bed bath as pt continued to refuse a shower on previous shifts. Pt compliant with all meds. No aggressive behavior noted. No hallucinations noted. Denies SI. No PRNs given. Pt denies having pain at assessment, stating her head was not hurting at that time. Pt alert x 2. Up assist x 1 or SBA with pivot to WC. Currently sleeping. Bed rails up x 2 and alarm on. Will continue to monitor
[2017-01-14] MEDS: LEVOFLOXACIN 500 MG TABLET PO SCH (05:55)
--- NOTE | 2017-01-14 06:28 | NUR ---
Summary Pt slept 8.25 hours this shift. Pt alert x 2. Up assist x 1 SBA to WC. Pleasant and cooperative with cares. Compliant with meds. No display of verbal or physical aggression. No hallucinations noted. Denies SI. Pt continent and incontinent. Currently sleeping. Bed rails up x 2 and alarm on. Will continue to monitor.
[2017-01-14 09:08] VITALS: BP 120/65; PULSE 65; RESP 18; TEMP 97.6; O2SAT 99
[2017-01-14] MEDS: DEMECLOCYCLINE 150 MG TABLET PO SCH ×2 (09:13→20:00)
[2017-01-14] MEDS: ASPIRIN *EC* 81mg TABLET PO SCH (09:13)
[2017-01-14] MEDS: TOPIRAMATE 100 MG TABLET PO SCH ×2 (09:14→20:01)
[2017-01-14] MEDS: LAMOTRIGINE 100 MG TABLET PO SCH ×2 (09:14→19:59)
[2017-01-14] MEDS: SENNOSIDES 8.6 MG TABLET PO SCH (09:14)
[2017-01-14] MEDS: SERTRALINE 25 MG TABLET PO SCH (09:14)
[2017-01-14] MEDS: OXCARBAZEPINE 300 MG TABLET PO SCH ×3 (09:14→20:01)
[2017-01-14] MEDS: LEVETIRACETAM 500 MG TABLET PO SCH ×2 (09:15→20:00)
--- NOTE | 2017-01-14 11:13 | GENPN ---
[facility] Subjective Date DATE: 01/14/17 TIME: 11:10 Subjective/Severity of Illness Medications Current Medications Medications (Trade) Dose Ordered Sig/Justus Start Time Stop Time Status Last Admin Dose Admin Aspirin (Ecotrin) 81 mg DAILY 01/09/17 09:00 01/14/17 09:13 81 MG Demeclocycline HCl (Declomycin) 150 mg BID 01/09/17 09:00 01/14/17 09:13 150 MG Escitalopram Oxalate (LEXAPRO 10mg) 5 mg DAILY 01/09/17 09:00 01/13/17 10:31 DC 01/13/17 09:09 5 MG Ibuprofen (Motrin) 600 mg Q8H PRN 01/08/17 22:00 Ibuprofen (Motrin) 400 mg QD 01/08/17 22:00 01/09/17 07:07 DC 01/08/17 22:48 400 MG Lamotrigine (Lamictal) 100 mg PM 01/09/17 20:00 01/13/17 19:54 100 MG Lamotrigine (Lamictal) 50 mg DAILY 01/09/17 09:00 01/14/17 09:14 50 MG Levetiracetam (Keppra) 1,500 mg BID 01/09/17 09:00 01/14/17 09:15 1,500 MG Magnesium Hydroxide (Mom) 30 ml Q48H 01/09/17 08:00 01/13/17 09:07 30 ML Oxcarbazepine (Trileptal) 300 mg TID 01/09/17 09:00 01/14/17 09:14 300 MG Risperidone (Risperdal) 0.25 mg QD 01/08/17 22:00 01/09/17 06:27 DC 01/08/17 22:48 0.25 MG Sennosides (Sennagen) 17.2 mg DAILY 01/09/17 09:00 01/14/17 09:14 17.2 MG Camphor/Menthol/ Eucalyptus (Vicks Vaporub Ointment) 1 applic PRN PRN 01/08/17 22:00 Topiramate (Topamax) 150 mg BID 01/09/17 09:00 01/14/17 09:14 150 MG Miscellaneous Medication (May use PRN orders) 1 PRN PRN 01/08/17 22:00 Haloperidol (Haldol) 0.5 mg Q6H PRN 01/08/17 22:00 Lorazepam (Ativan) 0.5 mg Q6H PRN 01/08/17 22:00 Lorazepam (Ativan) 0.5 mg Q6H PRN 01/08/17 22:00 Haloperidol Lactate (Haldol 5 Mg/ml Inj) 0.5 mg Q6H PRN 01/08/17 22:00 Risperidone (Risperdal) 0.25 mg DAILY@21 01/09/17 22:00 01/13/17 19:54 0.25 MG Ibuprofen (Motrin) 400 mg DAILY@21 01/09/17 21:00 01/13/17 19:52 400 MG Cephalexin HCl (Keflex) 500 mg Q8HR 01/09/17 09:00 01/10/17 13:18 DC 01/10/17 09:32 500 MG Nicotine (Nicoderm) 14 mg DAILY 01/09/17 09:00 01/11/17 12:49 DC 01/11/17 08:25 14 MG Nicotine (Nicoderm Patch Removal) 1 removal DAILY 01/10/17 09:00 01/11/17 12:49 DC 01/11/17 08:25 1 REMOVAL Simvastatin (Zocor) 20 mg HS 01/09/17 21:00 01/13/17 19:54 20 MG Levofloxacin (LEVAQUIN 500 mg tablet) 500 mg ACB 01/11/17 06:30 01/14/17 23:00 01/14/17 05:55 500 MG Sertraline HCl (Zoloft) 25 mg DAILY 01/11/17 09:00 01/14/17 09:14 25 MG Subjective Patient seen, chart examined. Case discussed with nursing. Nursing reports pt is doing well. Sleeping well and has a good appetite. On face to face the pt states she is doing well. She reports her mood is stable and she denies any S/ I. Tolerating meds. Voices no concerns at this time. Time of Service: 10:15 Start Time: 10:15 Stop Time: 10:30 Care >50% of this visit spent in counseling/coordination care. [facility] Exam Vitals Vital Signs Date Time Temp Pulse Resp B/P Pulse Ox O2 Delivery O2 Flow Rate FiO2 01/14/17 09:08 97.6 65 18 120/65 99 Room Air Physical examination performed by the hospitalist. Height (Feet): 5 Height (Inches): 4.50 Mental Status Exam Muscle Strength/Tone: Normal Dressing: Casual Grooming: Good Attitude: Cooperative Motor Activity: Retardation Eye Contact: Fair Speech: Slowed Volume: Normal Rhythm: Appropriate Rhythm Sensory: Alert Orientation: Oriented to person, Oriented to place Mood: Neutral Affect: Congruent Rate of Thoughts: Delayed Thought Organization: [place] Associations: Intact Thought Content: Normal Perception/Psychotic: Perception Normal Attention Span/Concentration: Short Span Fund of Knowledge: Poor fund of knowledge Memory: Poor-immediate, Poor-recent Suicidal Ideation: None Homicidal Ideation: None Insight: Limited Judgment: Limited Impulse Control: Fair Assessment and Plan (1) 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 Cont home medications. Obtain Vitamin B12 and folate level. Consider starting patient on Anti-depressant. 01/10/17: Start patient on Sertraline po 25mg daily. Will obtain a repeat CBC prior to discharge. 01/11/17: Cont current medication 01/12/17 Continue current care 01/13/17 D/C Lexapro 01/14/17 Continue current care (2) Depressive disorder, not elsewhere classified Cont. current psych. meds MARY ALICE CEDENO MD Jan 14, 2017 11:13
--- NOTE | 2017-01-14 11:20 | NUR ---
status pt alert and oriented to person and place. refused breakfast this am. just states that she wants a cigarette. took am meds with no issues. refuses to get up this am. will attempt to have pt get up for lunch. no sexual inappropriate behavior this am.
--- NOTE | 2017-01-14 14:15 | PNPDOC ---
Subjective Date DATE: 01/14/17 TIME: 14:05 Subjective Angela is up in wheelchair watching TV. Demands to go home today. I have let her know that she will have to discuss with psychiatry team re: DC plan. She wants to smoke. She reports that she "will have a seizure if she cannot smoke." I have discussed that we could offer her a nicotine patch- she stated that would be ok, but I see she has recurrently refused per nurses notes. Chart is reviewed for collateral information. Objective Vital Signs Vital signs Vital Signs Date Time Temp Pulse Resp B/P Pulse Ox O2 Delivery O2 Flow Rate FiO2 01/14/17 09:08 97.6 65 18 120/65 99 Room Air Height (Feet): 5 Height (Inches): 4.50 Weight (Kilograms): 51.000 General General Appearance: Alert, No Acute Distress Comments Thin. Neck (Brief) Neck: FOUND: midline, NOT FOUND: JVD, nuchal rigidity, spasm Respiratory (Brief) Respiratory: FOUND: clear all mccullough, equal bilaterally, symmetrical, NOT FOUND : rales, wheezes Comments Diminished bilaterally. Cardiovascular (Brief) Cardiac: FOUND: regular rate, regular rhythm, NOT FOUND: murmur, pedal edema Abdomen (Brief) Abdominal: FOUND: BS normo active x4, soft, NOT FOUND: distended, tender Extremities (Brief) Extremity : Extremity Finding: NOT FOUND: edema Psychiatric (Brief) Psychiatric: FOUND: alert, attentive Comments Poorly cooperative. Laboratory Laboratory Reviewed. Assessment & Plan Problems: (1) UTI (urinary tract infection) Status: Acute Qualifiers: Urinary tract infection type: acute cystitis Hematuria presence: with hematuria Qualified Codes: N30.01 - Acute cystitis with hematuria Assessment & Plan: MICROBIOLOGY URINE CULTURE. Final 01/10/17 Organism 1 PROVIDENCIA STUARTII COLONY COUNT >100,000 CFU/ml P STUARTII INTERP EMILY ------ --------- AMPICILLIN R CEFAZOLIN R >=64 CEFEPIME S <=1 CEFTAZIDIME S <=1 CEFTRIAXONE S <=1 CIPROFLOXACIN S <=0.25 ERTAPENEM S <=0.5 GENTAMICIN R LEVOFLOXACIN S <=0.12 NITROFURANTOIN R 128 TOBRAMYCIN R PIPERACILL/TAZO S <=4 (2) Seizure disorder, grand mal Status: Chronic (3) Nontraumatic intracerebral hemorrhage Status: Chronic (4) SIADH (syndrome of inappropriate ADH production) Status: Chronic (5) Gastroparesis Status: Chronic (6) CANELO (generalized anxiety disorder) Status: Chronic (7) Idiopathic gout Status: Chronic (8) Constipation Status: Chronic (9) Headache Status: Chronic (10) Dyslipidemia Status: Chronic Plan/Intensity of Service 01/14/17- Pt. remains irritable. May want to consider neurology consult if behaviors remain an issue- Keppra can cause some anger issues at times. Continue Levaquin due to organism- plan to stop after 5 days. A bit limited due to organism with drug resistance. Last BM documented 01/11- add Colace to senna. PRN MOM is noted. Monitor sodium intermittently due to SIADH hx. Continue declomycin. Significant dyslipidemia- continue Zocor. Repeat labs in AM. PRN nicotine patch for nicotine dependency. Code Status Full Code, unverified Hospital Course Summary Disclaimer The hospital course summary below is not to be considered part of the above Progress Note. Hospital Course Summary 01/09/17 Agree with admission. B12 and folate still pending. Other labs stable with exception of lipid panel. UTI - continue Keflex; watch for C&S results. Dyslipidemia - start low dose simvastatin and monitor response. Hx grand mal seizure - cont antiepileptics Constipation - PRNs available SIADH - Na normal; continue demeclocycline Tobacco use - pt indicated she's not interested in quitting. Agree with providing tobacco cessation information. Nicotine patch ordered. 01/11/17 Regards to urinary tract infection, urine culture is positive for Providencia Stuartii. Pt switched to PO Levaquin on 01/10/17. Will continue 5 days of treatment, and date 01/14/17. Increase Nicotine patch to 21mg transdermal. Offered nicotine gum however patient declined Continue with Keppra twice a day in regards to seizure disorder Blood pressure continues to be well controlled Otherwise, patient appears medically stable Psychiatric notes reviewed 01/14/17- Pt. remains irritable. May want to consider neurology consult if behaviors remain an issue- Keppra can cause some anger issues at times. Continue Levaquin due to organism- plan to stop after 5 days. A bit limited due to organism with drug resistance. Last BM documented 01/11- add Colace to senna. PRN MOM is noted. Monitor sodium intermittently due to SIADH hx. Continue declomycin. Significant dyslipidemia- continue Zocor. Repeat labs in AM. PRN nicotine patch for nicotine dependency. SONDRA PABLO APRN Jan 14, 2017 14:09
[2017-01-14] MEDS ORDERED: NICOTINE 14 MG PATCH TD PRN (14:30)
[2017-01-14 16:00] VITALS: BP 119/67; PULSE 63; RESP 20; TEMP 98.4; O2SAT 98
--- NOTE | 2017-01-14 17:44 | NUR ---
summary pt has been cooperative most of shift. did get up for lunch and supper. has taken all medications this shift. isolates most of day, stayed out in day room for about an hour after lunch then returned to room.pt asks this nurse when she is going to be discharged multiple times. pt instructed that the doctor is the one who makes that decision. no behaviors, agitation or inappropriate sexual gestures or comments noted on this shift. pt slept 6.25 hrs this shift.
[2017-01-14] MEDS: DOCUSATE SODIUM 100 MG CAPSULE PO SCH (20:00)
[2017-01-14] MEDS: IBUPROFEN 200 MG TABLET PO SCH (20:00)
[2017-01-14] MEDS: RISPERIDONE 0.25 MG TABLET PO SCH (20:00)
[2017-01-14] MEDS: SIMVASTATIN 20 MG TABLET PO SCH (20:01)
[2017-01-14] MEDS ORDERED: NICOTINE PATCH REMOVAL TD PRN (21:00)
[2017-01-14 21:56] VITALS: BP 136/69; PULSE 66; RESP 18; TEMP 98.2; O2SAT 100
[2017-01-15 00:50] VITALS: PULSE 66
--- NOTE | 2017-01-15 00:56 | NUR ---
Status Pt. is sitting in her wheelchair watching tv on approach. Pt. is compliant with meds and assessment. Pt. talks about wanting a cigarette and explains to staff that "it's dangerous to not let me smoke because I can go into a seizure." Explained to patient seizure precautions are implemented. Pt. complains of pain all over and rates pain 10/10. Pt. is given scheduled motrin 400mg at HS. Pt. transitions to bed well. No inappropriate sexual behavior noted, no physical or verbal aggression noted or reported. Pt. is resting in bed with the bed alarm activated and SR up x2.
--- NOTE | 2017-01-15 01:41 | NUR ---
Chart Check 24 hour chart check completed
[2017-01-15 05:54] LABS: HCT - HEMATOCRIT 37.1 % (36-46); HGB - HEMOGLOBIN 11.7 GM/DL (12-16); MEAN CORPUSCULAR HGB CONC(MCHC 31.5 GM/DL (31-37); MEAN CORPUSCULAR VOLUME 85.5 UM3 (80-100); MEAN PLATELET VOLUME 9.5 UM3 (9.4-12.4); RED BLOOD COUNT 4.34 M/MM3 (4.00-5.20); WBC - WHITE BLOOD COUNT 6.4 T/MM3 (4.5-11.0)
[2017-01-15 06:10] LABS: ANION GAP 7 MEQ/L (5-15); BUN/CREATININE RATIO 21 RATIO (6-26); CALCIUM 8.8 MG/DL (8.4-10.2); CHLORIDE 100 MEQ/L (98-107); CO2 - CARBON DIOXIDE 26 MEQ/L (22-30); CREATININE 0.9 MG/DL (0.7-1.2); GLOMERULAR FILTRATION RATE 65; GLUCOSE 88 MG/DL (65-110); POTASSIUM 4.8 MEQ/L (3.6-5); SODIUM 133 MEQ/L (134-144)
[2017-01-15 06:33] LABS: EOSINOPHILS # (MANUAL) 0.2 T/MM3 (0-0.5); LYMPHOCYTES # (MANUAL) 2.8 T/MM3 (1-4.8); MONOCYTES # (MANUAL) 0.8 T/MM3 (0-0.8); NEUTROPHILS #(MANUAL)-ABSOLUTE 2.6 T/MM3 (1.8-7.7); TOTAL CELLS COUNTED 100 %
--- NOTE | 2017-01-15 07:38 | NUR ---
Summary Pt. is alert and oriented x2. Pt. is pleasant and cooperative. No sexually inappropriate behaviors. No delusional thoughts or comments made. No prn meds given. Pt. frequently asks to go smoke and when she will be discharging. Pt. is easily redirected but gets irritable if she doesn't like your response to her question. No verbal or physical aggression this shift. Pt. slept 7.5 hours. Pt. is resting in bed with the bed alarm activated and SR up x2.
[2017-01-15] MEDS: MILK OF MAGNESIA 30 ML SUSP PO SCH (08:00)
[2017-01-15] MEDS: DOCUSATE SODIUM 100 MG CAPSULE PO SCH ×2 (09:33→20:36)
[2017-01-15] MEDS: TOPIRAMATE 100 MG TABLET PO SCH ×2 (09:34→20:34)
[2017-01-15] MEDS: DEMECLOCYCLINE 150 MG TABLET PO SCH ×2 (09:35→20:34)
[2017-01-15] MEDS: ASPIRIN *EC* 81mg TABLET PO SCH (09:35)
[2017-01-15] MEDS: LAMOTRIGINE 100 MG TABLET PO SCH ×2 (09:35→20:40)
[2017-01-15] MEDS: SENNOSIDES 8.6 MG TABLET PO SCH (09:35)
[2017-01-15] MEDS: SERTRALINE 25 MG TABLET PO SCH (09:36)
[2017-01-15] MEDS: OXCARBAZEPINE 300 MG TABLET PO SCH ×3 (09:36→20:36)
[2017-01-15] MEDS: LEVETIRACETAM 500 MG TABLET PO SCH ×2 (09:36→20:33)
[2017-01-15 09:53] VITALS: PULSE 66
--- NOTE | 2017-01-15 10:30 | NUR ---
MECHANICAL ENGINEERING DRAFTSPERSON--AM GROUP Pt. was present and actively engaged in psychoeducational group facilitated by [facility]. Topic was on feeling appreciative for the positive aspects of life. All attendees were asked to identify one thing they are grateful for in their life. Pt. stated she was grateful for a mother who cares so much about her. Shared a reading about the "good ol' days" and participants talked about their memories about how things have changed. Ended group by listening to a variety of songs. Pt. did ask 2x when she might be able to return to [facility] . She stated she has complied with all requests made to her by staff. This SW reassured pt. that Dr. Ledbetter would look at her case and make that decision later today when she comes in for rounds. Pt. remained calm with pleasant mood.
[2017-01-15 10:41] VITALS: BP 122/67; PULSE 64; RESP 18; TEMP 97.4; O2SAT 98
--- NOTE | 2017-01-15 11:00 | NUR ---
BLASTING HELPER[facility] phone call from pt's mother, Liudmila. She wanted update and information on potential discharge date. Information provided and suggested discharge date of early this week. Pt's mother is 82 years old and has not driven down to see pt. She is going to have facility transport pt. back. The mother would like this SW to talk with her about acting appropriately with peers once she returns to her facility since being sexually inappropriate was one of the reasons that got her placed in hospital. Reviewed pt's progress on treatment plan goals.
--- NOTE | 2017-01-15 11:30 | NUR ---
BLASTING MACHINE OPERATOR--INDIVIDUAL LSCSW met 1:1 with pt. regarding pt's progress towards meeting treatment goals. Pt. was alert and Ox3. Pt. states she misses her and she does not like her current physical condition. She states she looks forward to dying and seeing her again. She adamantly denies that she has any thoughts of intentionally hurting herself. She said she still has things she looks forward to and she misses her friends back at the facility. She identifies her mother as a strong support and she receives occasional phone calls from her step-son. Pt. states she understands why it is inappropriate to be sexually forward to other residents at the nursing facility. She states she will "never do it again." Pt. is very hopeful she can discharge tomorrow.
--- NOTE | 2017-01-15 12:53 | NUR ---
CM CM ANTICIPATED D/C EARLY THIS WEEK. CM SPOKE WITH PT MOTHER JILLIAN AND SHE IS AWARE. CM SPOKE WITH DANYELLE TANIA AT FACILITY AND SHE IS AWARE OF ANTICIPATE D/C FOR EARLY THIS WEEK. PT MOTHER AND DANYELLE FROM FACILITY AWARE TO CONTACT CM IF NEEDS ARISE.
--- NOTE | 2017-01-15 14:31 | NUR ---
Status Pt is pleasant and cooperative with cares and assessment today. Took shower without difficulty this morning. Pt only had coffee for breakfast ate 75% of lunch. Pt participated in group this morning. Pt is resting in bed at this time. No behaviors noted.
--- NOTE | 2017-01-15 14:37 | NUR ---
CM DR ELLISON WILL D/C PT BACK TO [facility] TOMORROW. CM SPOKE WITH DANYELLE FROM THE FACILITY AND THEY WILL TRANSPORT PT TOMORROW BETWEEN 3:30-4:00PM. PT MOTHER KASSANDRA LIKE PT TO USE [facility] FOR MENTAL HEALTH FOLLOW UP. PT MOTHER JILLIAN IS AWARE OF D/C PLAN FOR TOMORROW AND IS AWARE TO CONTACT CM IF NEEDS ARISE.
--- NOTE | 2017-01-15 15:03 | GENPN ---
[facility] Subjective Date DATE: 01/15/17 TIME: 14:55 Subjective/Severity of Illness Medications Current Medications Medications (Trade) Dose Ordered Sig/Justus Start Time Stop Time Status Last Admin Dose Admin Aspirin (Ecotrin) 81 mg DAILY 01/09/17 09:00 01/15/17 09:35 81 MG Demeclocycline HCl (Declomycin) 150 mg BID 01/09/17 09:00 01/15/17 09:35 150 MG Escitalopram Oxalate (LEXAPRO 10mg) 5 mg DAILY 01/09/17 09:00 01/13/17 10:31 DC 01/13/17 09:09 5 MG Ibuprofen (Motrin) 600 mg Q8H PRN 01/08/17 22:00 Ibuprofen (Motrin) 400 mg QD 01/08/17 22:00 01/09/17 07:07 DC 01/08/17 22:48 400 MG Lamotrigine (Lamictal) 100 mg PM 01/09/17 20:00 01/14/17 19:59 100 MG Lamotrigine (Lamictal) 50 mg DAILY 01/09/17 09:00 01/15/17 09:35 50 MG Levetiracetam (Keppra) 1,500 mg BID 01/09/17 09:00 01/15/17 09:36 1,500 MG Magnesium Hydroxide (Mom) 30 ml Q48H 01/09/17 08:00 01/13/17 09:07 30 ML Oxcarbazepine (Trileptal) 300 mg TID 01/09/17 09:00 01/15/17 09:36 300 MG Risperidone (Risperdal) 0.25 mg QD 01/08/17 22:00 01/09/17 06:27 DC 01/08/17 22:48 0.25 MG Sennosides (Sennagen) 17.2 mg DAILY 01/09/17 09:00 01/15/17 09:35 17.2 MG Camphor/Menthol/ Eucalyptus (Vicks Vaporub Ointment) 1 applic PRN PRN 01/08/17 22:00 Topiramate (Topamax) 150 mg BID 01/09/17 09:00 01/15/17 09:34 150 MG Miscellaneous Medication (May use PRN orders) 1 PRN PRN 01/08/17 22:00 Haloperidol (Haldol) 0.5 mg Q6H PRN 01/08/17 22:00 Lorazepam (Ativan) 0.5 mg Q6H PRN 01/08/17 22:00 Lorazepam (Ativan) 0.5 mg Q6H PRN 01/08/17 22:00 Haloperidol Lactate (Haldol 5 Mg/ml Inj) 0.5 mg Q6H PRN 01/08/17 22:00 Risperidone (Risperdal) 0.25 mg DAILY@21 01/09/17 22:00 01/14/17 20:00 0.25 MG Ibuprofen (Motrin) 400 mg DAILY@21 01/09/17 21:00 01/14/17 20:00 400 MG Cephalexin HCl (Keflex) 500 mg Q8HR 01/09/17 09:00 01/10/17 13:18 DC 01/10/17 09:32 500 MG Nicotine (Nicoderm) 14 mg DAILY 01/09/17 09:00 01/11/17 12:49 DC 01/11/17 08:25 14 MG Nicotine (Nicoderm Patch Removal) 1 removal DAILY 01/10/17 09:00 01/11/17 12:49 DC 01/11/17 08:25 1 REMOVAL Simvastatin (Zocor) 20 mg HS 01/09/17 21:00 01/14/17 20:01 20 MG Levofloxacin (LEVAQUIN 500 mg tablet) 500 mg ACB 01/11/17 06:30 01/14/17 23:01 DC 01/14/17 05:55 500 MG Sertraline HCl (Zoloft) 25 mg DAILY 01/11/17 09:00 01/15/17 09:36 25 MG Docusate Sodium (Colace) 100 mg BID 01/14/17 21:00 01/15/17 09:33 100 MG Nicotine (Nicoderm Patch Removal) 14 removal DAILY PRN 01/14/17 21:00 Nicotine (Nicoderm) 14 mg DAILY PRN 01/14/17 14:30 Subjective Patient seen and chart reviewed. Case discussed with treatment team. Patient has been doing well on the unit overall and has not exhibited any inappropriate behaviors, including being sexually inappropriate. She was able to have a conversation with SW about why being "forward" was inappropriate and feels like she can restrain herself from doing this after discharge as she does not wan to be hospitalized again. She has been participating in cares without complaint. Patient reports that she feels sad in regards to missing her and father, but that she does not feel depressed otherwise. She thinks the hospitalization has been helpful "because she met a lot of nice people." Patient denies any SI, HI or AVH. Patient slept 7.5 hours overnight. Appetite is good. Patient denies any adverse side effects due to medications or other concerns. VSS. Psychotropic PRNs required in the past 24 hours: none. Time of Service: 10:15 Start Time: 12:30 Stop Time: 12:50 Care >50% of this visit spent in counseling/coordination care. [facility] Exam Vitals Vital Signs Date Time Temp Pulse Resp B/P Pulse Ox O2 Delivery O2 Flow Rate FiO2 01/15/17 10:41 97.4 64 18 122/67 98 Room Air Physical examination performed by the hospitalist. Height (Feet): 5 Height (Inches): 4.50 Mental Status Exam Muscle Strength/Tone: Normal Dressing: Casual Grooming: Fair Attitude: Cooperative Motor Activity: Normal Eye Contact: Good Speech: Normal Volume: Normal Rhythm: Appropriate Rhythm Sensory: Alert Orientation: Disoriented to time, Disoriented to place, Oriented to person Mood: Neutral Affect: Congruent, Stable Rate of Thoughts: Appropriate Rate Thought Organization: Organized Associations: Intact Abstract Reasoning: Poor abstract reasoning Thought Content: Other (Misses and father, otherwise normal) Perception/Psychotic: Perception Normal Attention Span/Concentration: Normal Language: Naming Intact Fund of Knowledge: Ethan aware current events Memory: Poor-recent Suicidal Ideation: Denies Homicidal Ideation: Denies Insight: Limited Judgment: Limited Impulse Control: Fair Laboratory Tests Test 01/15/17 05:43 White Blood Count 6.4T/MM3 Red Blood Count 4.34M/MM3 Hemoglobin 11.7GM/DL Hematocrit 37.1% Mean Corpuscular Volume 85.5UM3 Mean Corpuscular Hemoglobin 27.0UUG Mean Corpuscular Hemoglobin Concent 31.5GM/DL RDW Standard Deviation 48.2FL Platelet Count 251T/MM3 Mean Platelet Volume 9.5UM3 Immature Granulocyte % (Auto) % Neutrophils (%) (Auto) % Lymphocytes (%) (Auto) % Monocytes (%) (Auto) % Eosinophils (%) (Auto) % Basophils (%) (Auto) % Absolute Immature Granulocyte (auto T/MM3 Absolute Neutrophils (auto) T/MM3 Absolute Lymphocytes (auto) T/MM3 Absolute Monocytes (auto) T/MM3 Absolute Eosinophils (auto) T/MM3 Absolute Basophils (auto) T/MM3 Neutrophils % (Manual) 41.0% Lymphocytes % (Manual) 44.0% Monocytes % (Manual) 12.0% Eosinophils % (Manual) 3.0% Absolute Neutrophils (Manual) 2.6T/MM3 Lymphocytes # (Manual) 2.8T/MM3 Monocytes # (Manual) 0.8T/MM3 Eosinophils # (Manual) 0.2T/MM3 Red Cell Morphology Comment Normal Turbidity < 20 Sodium Level 133MEQ/L Potassium Level 4.8MEQ/L Chloride Level 100MEQ/L Carbon Dioxide Level 26MEQ/L Anion Gap 7MEQ/L Blood Urea Nitrogen 19.0MG/DL Creatinine 0.9MG/DL Glomerular Filtration Rate Calc 65 BUN/Creatinine Ratio 21RATIO Glucose Level 88MG/DL Calculated Osmolality 257MOSM/KG Calcium Level 8.8MG/DL Icterus Index < 2 Chemistry Specimen Hemolysis < 15 Assessment and Plan (1) 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 Cont home medications. Obtain Vitamin B12 and folate level. Consider starting patient on Anti-depressant. 01/10/17: Start patient on Sertraline po 25mg daily. Will obtain a repeat CBC prior to discharge. 01/11/17: Cont current medication 01/12/17 Continue current care 01/13/17 D/C Lexapro 01/14/17 Continue current care 01/15/17: Increase Sertraline to 50mg PO daily (2) Depressive disorder, not elsewhere classified Cont. current psych. meds Plan to increase sertraline to 50mg PO daily as patient reports continued sadness related to bereavement. Has met all treatment goals and doing well. Plan for discharge back to living facility 01/16/17. SARAH ELLISON MD Jan 15, 2017 15:00
--- NOTE | 2017-01-15 15:06 | PDOCECFAO ---
Admission Orders Admission Orders Admit to: [facility] Allergies: Coded Allergies: acetaminophen (Verified Allergy, Unknown, 01/08/17) codeine (Verified Allergy, Unknown, 01/08/17) Admitting Diagnosis Unspecified Schizophrenia Spectrum And Other Psych Depressive disorder r/o Major neurocognitive disorder, vascular Admitting Physician Isrrael Castillo MD Attending Physician Sarah Ellison MD Code Status Full Code, unverified Anticipated LOS: Greater than 30 days Rehab Potential: Fair Rehab Prognosis: Fair Diet: Regular Wound/Incision Care: N/A May use Facility Protocol /SO: Yes May Have Flu Vaccine: Yes Evaluations/Treat: Psychiatric, As Needed Senior Living Certification I certify that SNF services are required to be given on an Inpatient basis because of the patients need for penitentiary care on a continuing basis for the condition(s) for which he/she received inpatient hospital services prior to his/her transfer to the SNF. SNF inpatient care is necessary for the following reasons Not Applicable SARAH ELLISON MD Jan 15, 2017 15:06
[2017-01-15] MEDS ORDERED: SIMV20TA2 PO (15:20)
[2017-01-15] MEDS ORDERED: TOPI100T9 PO (15:20)
[2017-01-15] MEDS ORDERED: DOCU-168 PO (15:20)
[2017-01-15] MEDS ORDERED: RISP0.252 PO (15:20)
[2017-01-15] MEDS ORDERED: SERT50TA12 PO (15:55)
[2017-01-15 16:12] VITALS: BP 130/69; PULSE 61; RESP 18; TEMP 98.2; O2SAT 99
--- NOTE | 2017-01-15 17:47 | NUR ---
Shift summary Pt is cooperative with cares this afternoon, no behaviors noted. Pt is eating supper at this time. Took meds without difficulty today.
[2017-01-15 20:30] VITALS: BP 128/77; PULSE 70; RESP 18; TEMP 97.9; O2SAT 100
[2017-01-15] MEDS: RISPERIDONE 0.25 MG TABLET PO SCH (20:34)
[2017-01-15] MEDS: SIMVASTATIN 20 MG TABLET PO SCH (20:35)
[2017-01-15] MEDS: IBUPROFEN 200 MG TABLET PO SCH (20:36)
[2017-01-15 21:18] VITALS: BP 128/77; PULSE 70; RESP 18; TEMP 97.9; O2SAT 100
--- NOTE | 2017-01-16 05:15 | NUR ---
Chart Check 24 hour chart check completed
--- NOTE | 2017-01-16 06:20 | NUR ---
Summary Pt slept 7.5 hours last night. Pt had no behaviors or complaints of pain overnight. No PRN medications were given and patient is currently in bed sleeping with side rails up x2 and bed alarm activated
[2017-01-16 08:01] VITALS: BP 114/68; PULSE 64; RESP 16; TEMP 98; O2SAT 98
[2017-01-16] MEDS ORDERED: SERTRALINE 50 MG TABLET PO SCH (09:00)
[2017-01-16] MEDS: ASPIRIN *EC* 81mg TABLET PO SCH (09:21)
[2017-01-16] MEDS: DOCUSATE SODIUM 100 MG CAPSULE PO SCH (09:21)
[2017-01-16] MEDS: SENNOSIDES 8.6 MG TABLET PO SCH (09:22)
[2017-01-16] MEDS: DEMECLOCYCLINE 150 MG TABLET PO SCH (09:22)
[2017-01-16] MEDS: LAMOTRIGINE 100 MG TABLET PO SCH (09:22)
[2017-01-16] MEDS: LEVETIRACETAM 500 MG TABLET PO SCH (09:23)
[2017-01-16] MEDS: OXCARBAZEPINE 300 MG TABLET PO SCH ×2 (09:23→15:01)
[2017-01-16] MEDS: TOPIRAMATE 100 MG TABLET PO SCH (09:23)
--- NOTE | 2017-01-16 10:07 | PNPDOC ---
Subjective Date DATE: 01/16/17 TIME: 09:50 Subjective Angela is seen today on [facility] for f/u schizophrenia. It is anticipated she will discharge to home today-this afternoon. Nurses report she has been doing well. Objective Vital Signs Vital signs Vital Signs Date Time Temp Pulse Resp B/P Pulse Ox O2 Delivery O2 Flow Rate FiO2 01/16/17 08:01 98.0 64 16 114/68 98 Room Air Height (Feet): 5 Height (Inches): 4.50 Weight (Kilograms): 51.000 Laboratory Laboratory Laboratory Tests 01/15/17 05:43 Laboratory Tests 01/15/17 05:43 Assessment & Plan Problems: (1) UTI (urinary tract infection) Status: Acute Qualifiers: Urinary tract infection type: acute cystitis Hematuria presence: with hematuria Qualified Codes: N30.01 - Acute cystitis with hematuria Assessment & Plan: MICROBIOLOGY URINE CULTURE. Final 01/10/17-715 Organism 1 PROVIDENCIA STUARTII COLONY COUNT >100,000 CFU/ml P STUARTII INTERP EMILY ------ --------- AMPICILLIN R CEFAZOLIN R >=64 CEFEPIME S <=1 CEFTAZIDIME S <=1 CEFTRIAXONE S <=1 CIPROFLOXACIN S <=0.25 ERTAPENEM S <=0.5 GENTAMICIN R LEVOFLOXACIN S <=0.12 NITROFURANTOIN R 128 TOBRAMYCIN R PIPERACILL/TAZO S <=4 (2) Seizure disorder, grand mal Status: Chronic (3) Nontraumatic intracerebral hemorrhage Status: Chronic (4) SIADH (syndrome of inappropriate ADH production) Status: Chronic (5) Gastroparesis Status: Chronic (6) CANELO (generalized anxiety disorder) Status: Chronic (7) Idiopathic gout Status: Chronic (8) Constipation Status: Chronic (9) Headache Status: Chronic (10) Dyslipidemia Status: Chronic Plan/Intensity of Service 01/16 Dismissing today. Recommend follow up on recent Providencia stuartii UTI from this hospitalization with repeat UA if symptomatic. Completed 2 days of TID cephalexin 500 mg and 5 days Levaquin 500 mg. Both sensitive on micro. WBC this am 6.4. Afebrile. BP good. Hyponatremia with some improvement. Na 133 this morning. She is not quite ready to come off the Demeclocycline which is currently dosed at 150 mg po BID. Would recommend continuing this medication and having her follow up with her pcp for prn sodium monitoring and determining safety in discontinuation. There is a chance she may not be able to come off this medication without risk of hyponatremia due to psych medications which can cause hyponatremia. Bowels have not moved, atleast not that nurses have noticed. Patient refused MOM yesterday. Abdomen is soft and bowel sounds are active. Appetite is good. Dyslipidemia-continue Simvastatin 20 mg po QHS for abnormal lipid panel. F/u per recommendations of PCP. Code Status Full Code, unverified Hospital Course Summary Disclaimer The hospital course summary below is not to be considered part of the above Progress Note. Hospital Course Summary 01/09/17 Agree with admission. B12 and folate still pending. Other labs stable with exception of lipid panel. UTI - continue Keflex; watch for C&S results. Dyslipidemia - start low dose simvastatin and monitor response. Hx grand mal seizure - cont antiepileptics Constipation - PRNs available SIADH - Na normal; continue demeclocycline Tobacco use - pt indicated she's not interested in quitting. Agree with providing tobacco cessation information. Nicotine patch ordered. 01/11/17 Regards to urinary tract infection, urine culture is positive for Providencia Stuartii. Pt switched to PO Levaquin on 01/10/17. Will continue 5 days of treatment, and date 01/14/17. Increase Nicotine patch to 21mg transdermal. Offered nicotine gum however patient declined Continue with Keppra twice a day in regards to seizure disorder Blood pressure continues to be well controlled Otherwise, patient appears medically stable Psychiatric notes reviewed 01/14/17- Pt. remains irritable. May want to consider neurology consult if behaviors remain an issue- Keppra can cause some anger issues at times. Continue Levaquin due to organism- plan to stop after 5 days. A bit limited due to organism with drug resistance. Last BM documented 01/11- add Colace to senna. PRN MOM is noted. Monitor sodium intermittently due to SIADH hx. Continue declomycin. Significant dyslipidemia- continue Zocor. Repeat labs in AM. PRN nicotine patch for nicotine dependency. 01/16 Dismissing today. Recommend follow up on recent Providencia stuartii UTI from this hospitalization with repeat UA if symptomatic. Completed 2 days of TID cephalexin 500 mg and 5 days Levaquin 500 mg. Both sensitive on micro. WBC this am 6.4. Afebrile. BP good. Hyponatremia with some improvement. Na 133 this morning. She is not quite ready to come off the Demeclocycline which is currently dosed at 150 mg po BID. Would recommend continuing this medication and having her follow up with her pcp for prn sodium monitoring and determining safety in discontinuation. There is a chance she may not be able to come off this medication without risk of hyponatremia due to psych medications which can cause hyponatremia. Bowels have not moved, atleast not that nurses have noticed. Patient refused MOM yesterday. Abdomen is soft and bowel sounds are active. Appetite is good. Dyslipidemia-continue Simvastatin 20 mg po QHS for abnormal lipid panel. F/u per recommendations of PCP. SARWAT NAVARRO APRN Jan 16, 2017 09:53
--- NOTE | 2017-01-16 11:57 | NUR ---
status pt alert and oriented to person and place. did not eat breakfast. denies any pain or discomfort. took am medications with no issues. did come out for lunch. states she is ready to to home so that she can smoke.
[2017-01-16 16:55] VITALS: BP 132/67; PULSE 63; RESP 16; TEMP 97.5; O2SAT 100
--- NOTE | 2017-01-16 17:05 | NUR ---
discharge pt is discharged back to [facility]. pt in stable condition upon discharge. all personal belongings including w/c were returned to pt. pt taken via w/c to facility transportation accompanied by [facility] staff and facility limb driver. report called to michael.
--- NOTE | 2017-01-24 20:48 | DSPDOC ---
General Date Date DATE: 01/15/17 TIME: 15:06 Attending Physician Isrrael Castillo MD Admitting Physician Isrrael Castillo MD Consulting Physician Aviva De Souza MD Admitting Diagnosis Unspecified Schizophrenia Spectrum & Other Psychotic Disorders Discharge Diagnosis Depressive disorder, major neurocognitive disorder (possible vascular etiology, behavioral disturbance resolved) Laboratory Laboratory Tests Test 01/15/17 05:43 White Blood Count 6.4T/MM3 (4.5-11.0) Red Blood Count 4.34M/MM3 (4.00-5.20) Hemoglobin 11.7GM/DL (12-16) Hematocrit 37.1% (36-46) Mean Corpuscular Volume 85.5UM3 (80-100) Mean Corpuscular Hemoglobin 27.0UUG (26-34) Mean Corpuscular Hemoglobin Concent 31.5GM/DL (31-37) RDW Standard Deviation 48.2FL (36.9-50.2) Platelet Count 251T/MM3 (130-400) Mean Platelet Volume 9.5UM3 (9.4-12.4) Immature Granulocyte % (Auto) % (0.0-0.5) Neutrophils (%) (Auto) % (33-66) Lymphocytes (%) (Auto) % (23-45) Monocytes (%) (Auto) % (0-9.0) Eosinophils (%) (Auto) % (0-4) Basophils (%) (Auto) % (0-2) Absolute Immature Granulocyte (auto T/MM3 (0.00-0.03) Absolute Neutrophils (auto) T/MM3 (1.8-7.7) Absolute Lymphocytes (auto) T/MM3 (1-4.8) Absolute Monocytes (auto) T/MM3 (0-0.8) Absolute Eosinophils (auto) T/MM3 (0-0.5) Absolute Basophils (auto) T/MM3 (0-0.2) Neutrophils % (Manual) 41.0% (33-66) Lymphocytes % (Manual) 44.0% (23-45) Monocytes % (Manual) 12.0% (0-9.0) Eosinophils % (Manual) 3.0% (0-4) Absolute Neutrophils (Manual) 2.6T/MM3 (1.8-7.7) Lymphocytes # (Manual) 2.8T/MM3 (1-4.8) Monocytes # (Manual) 0.8T/MM3 (0-0.8) Eosinophils # (Manual) 0.2T/MM3 (0-0.5) Red Cell Morphology Comment Normal Turbidity < 20 (0-20) Sodium Level 133MEQ/L (134-144) Potassium Level 4.8MEQ/L (3.6-5) Chloride Level 100MEQ/L (98-107) Carbon Dioxide Level 26MEQ/L (22-30) Anion Gap 7MEQ/L (5-15) Blood Urea Nitrogen 19.0MG/DL (7-17) Creatinine 0.9MG/DL (0.7-1.2) Glomerular Filtration Rate Calc 65 BUN/Creatinine Ratio 21RATIO (6-26) Glucose Level 88MG/DL (65-110) Calculated Osmolality 257MOSM/KG (261-280) Calcium Level 8.8MG/DL (8.4-10.2) Icterus Index < 2 (0-7) Chemistry Specimen Hemolysis < 15 (0-25) History of Present Illness Per admitting psychiatrist: Patient is a 56-year-old, female, who has history of brain aneurysm and reportedly had 2 surgeries about 20 years ago and has had seizures since after the surgeries. She presents from [facility] for increased agitation and behavioral disturbance. Patient presented through the ER patient where she was medically cleared but was found to have UTI and was started on Keflex. She was seen today to be alert and oriented to person and place but not to the month or year. She reports that she is in the hospital because of she was getting "too friendly with men" at the [facility] which she attributes to missing her . According to patient the about 4-5 years ago but reports shows he may have just about 2 years ago. Patient also identifies the assisted not letting her smoke as another stressor. She often gets about 4 smoking breaks at the [facility] but would like to smoke whenever she wants.patient had a slums call off and MOCA of . Patient reports increased depressed mood in the last month and identifies decreased appetite with loss of about 10 pounds also in the last month. There is associated decreased concentration, and anhedonia. She denies morbid thoughts, suicide or intent or plans to hurt herself or some other person. She also reports past history of depression after the of her father many years ago. She denies history of auditory or visual hallucination and denies any form of delusion. She denies panic attack or history suggestive of generalized anxiety disorder. 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 Past psychiatric history: Denies any suicide attempts in the past and unable to recall any past psych hospitalization. Family history: Father had history of brain aneurysm and he also had depression. 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 She denies any history of alcohol or illicit drug use recently. Denies any problem with the police. Per hospitalist: Angela Draper is a 56 y/o lady who was admitted to [facility] on 01/08/17 for inappropriate sexual behaviors towards other residents at [facility] for the last 4 weeks. She's also been verbally aggressive with staff and has been paranoid and delusional. She's been refusing bathing. She was medically cleared in [facility] ED on 01/08/17; she was dx with UTI and was started on Keflex. According to ED records, her mother reported to the ED MANAGER [facility] that Angela has been suffering with grief problems since the of her 2 years ago. Angela was seen in her room. She was awake, pleasant, and cooperative, but wanted to go back to sleep rather than eating breakfast following completion of interview/exam. She conversed well and seemed to be a fair historian, though some of her reported PMH was not accurate per her chart. ROS was entirely negative, though according to accompanying records she has constipation and frequent headaches. She states that she doesn't have seizures very often, but can't say for certain when her last one was. Hospital Course After the initial evaluation, the patient was placed on safety and elopement precautions. Based on the diagnostic interview and collateral information provided by [facility] care facility, it was established that the patient suffers from depressive disorder and major neurocognitive disorder, possibly vascular. See medication changes below. Prior to the patients agreement of medication trials, the side effects, risk and benefits of all medications were discussed with the patient and/or DPOA. The patient tolerated medications well and without any side effects. By the end of the hospitalization, the patient participated in unit activities, didnt have self-harming behavior or aggressive outbursts, and the patients vital signs remained within normal limits and stable. Throughout the hospitalization, the patient reported improvement of symptoms and resolution of suicidal thoughts. The patient planned to discharge back to care facility and f/u with established providers there. .The care facility will help coordinate the patients care, remove/lock all weapons and medications, administer medications, and supervise the patient for safety. Medication changes: 01/10/17: Start patient on Sertraline po 25mg daily. Will obtain a repeat CBC prior to discharge. 01/11/17: Cont current medication 01/12/17 Continue current care 01/13/17 D/C Lexapro 01/14/17 Continue current care 01/15/17: Increase Sertraline to 50mg PO daily Medical course: 01/09/17 Agree with admission. B12 and folate still pending. Other labs stable with exception of lipid panel. UTI - continue Keflex; watch for C&S results. Dyslipidemia - start low dose simvastatin and monitor response. Hx grand mal seizure - cont antiepileptics Constipation - PRNs available SIADH - Na normal; continue demeclocycline Tobacco use - pt indicated she's not interested in quitting. Agree with providing tobacco cessation information. Nicotine patch ordered. 01/11/17 Regards to urinary tract infection, urine culture is positive for Providencia Stuartii. Pt switched to PO Levaquin on 01/10/17. Will continue 5 days of treatment, and date 01/14/17. Increase Nicotine patch to 21mg transdermal. Offered nicotine gum however patient declined Continue with Keppra twice a day in regards to seizure disorder Blood pressure continues to be well controlled Otherwise, patient appears medically stable Psychiatric notes reviewed 01/14/17- Pt. remains irritable. May want to consider neurology consult if behaviors remain an issue- Keppra can cause some anger issues at times. Continue Levaquin due to organism- plan to stop after 5 days. A bit limited due to organism with drug resistance. Last BM documented 01/11- add Colace to senna. PRN MOM is noted. Monitor sodium intermittently due to SIADH hx. Continue declomycin. Significant dyslipidemia- continue Zocor. Repeat labs in AM. PRN nicotine patch for nicotine dependency. Problems: Code Status Full Code, unverified Home Meds Active Scripts Sertraline (Sertraline) 50 Mg Tablet, 50 MG PO DAILY for Mood for 30 Days, #30 TAB Prov:SARAH ELLISON MD 01/15/17 Docusate Sodium (Colace) 100 Mg Capsule, 100 MG PO BID for CONSTIPATION/STOOL SOFTENING for 30 Days, #60 CAP Prov:SARAH ELLISON MD 01/15/17 Topiramate (Topamax) 100 Mg Tablet, 150 MG PO BID for Seizure disorder for 30 Days, #90 TAB Prov:SARAH ELLISON MD 01/15/17 Risperidone (Risperdal) 0.25 Mg Tablet, 0.25 MG PO DAILY@21 for Agitation for 30 Days, #30 TAB Prov:SARAH ELLISON MD 01/15/17 Simvastatin (Zocor) 20 Mg Tablet, 20 MG PO HS for Cholesterol for 30 Days, #30 TAB Prov:SARAH ELLISON MD 01/15/17 Reported Medications Lorazepam (Lorazepam) 2 Mg/1 Ml Syringe, 2 MG IM q5 min Y for PRN ORDERS IM as needed for seizure lasting longer than 5 min. May give every 5 min up to 6 mg or seizure stops. 01/08/17 Ibuprofen (Ibuprofen) 200 Mg Capsule, 3 CAP PO Q8H Y for PAIN, CAP 01/08/17 Oxcarbazepine (Oxcarbazepine) 300 Mg Tablet, 300 MG PO TID for Seizure disorder , TAB 01/08/17 Levetiracetam (Keppra) 500 Mg Tablet, 1500 MG PO BID for Seizure disorder 01/08/17 Demeclocycline HCl (Demeclocycline HCl) 150 Mg Tablet, 150 MG PO BID for SIADH, TAB 01/08/17 Sennosides (Senna) 8.6 Mg Tablet, 2 TAB PO DAILY for CONSTIPATION, TAB 01/08/17 Magnesium Hydroxide (Milk of Magnesia) 400 Mg/5 Ml Oral.susp, 800 MG PO QOD for CONSTIPATION/STOOL SOFTENING 01/08/17 Lamotrigine (Lamictal) 100 Mg Tablet, 1 TAB PO PM for Seizure disorder, TAB 01/08/17 Lamotrigine (Lamictal) 100 Mg Tablet, 50 MG PO DAILY for Seizure disorder, TAB 01/08/17 Aspirin *EC* (Low Dose Aspirin EC) 81 Mg Tablet.dr, 81 MG PO DAILY for Anticoagulation 01/08/17 Ibuprofen (Ibuprofen) 200 Mg Tablet, 400 MG PO QD for Anti-inflammatory/pain, TAB 01/08/17 Face to Face Encounter I met with patient on the day of dismissal and discussed follow up appointments , medications, and safety plan. Discharge Disposition Discharge back to [facility], f/u with providers there for further psychiatric care SARAH ELLISON MD Jan 15, 2017 15:06
== END 2017-01-16 17:00 | DRG 881 ==
LOC: ED 17:12 → GEN 19:33
PROVIDERS: ADMIT Psychiatry & Neurology Psychiatry; ATTEND Psychiatry & Neurology Psychiatry
DX: F32.9 Major depressive disorder, single episode, unspecified (principal); F03.91 Unspecified dementia, unspecified severity, with behavioral disturbance; E22.2 Syndrome of inappropriate secretion of antidiuretic hormone; N30.01 Acute cystitis with hematuria; G40.909 Epilepsy, unspecified, not intractable, without status epilepticus; M10.00 Idiopathic gout, unspecified site; K31.84 Gastroparesis; F41.1 Generalized anxiety disorder; Z87.898 Personal history of other specified conditions; Z79.82 Long term (current) use of aspirin; F17.210 Nicotine dependence, cigarettes, uncomplicated; F10.21 Alcohol dependence, in remission; E78.5 Hyperlipidemia, unspecified
CPT/HCPCS: 36415; 80048; 80053; 80061; 80306; 80307; 81001; 82607; 82746; 83036; 84443; 85025; 87077; 87086; 87186; 99406